=== PATIENT | female | born 1980 | race Caucasian/White ===

== ENCOUNTER 2020-11-17 08:40 | Outpatient (CLI) | payer OTHER, SELFPAY ==
[2020-11-17 08:55] LABS: Basophils Percent Auto 0.3 % (0.2-1.2); Eosinophils Absolute Auto 0.1 K/mm3 (0-0.3); Hematocrit 42.5 % (37.0-47.0); Immature Granulocyte Absolute 0.02 K/mm3 (0.00-0.031); Immature Granulocyte Percent A 0.3 % (0-0.5); Lymphocytes Absolute Auto 2.07 K/mm3 (0.9-3.2); Lymphocytes Percent Auto 33.7 % (18.3-44.2); Mean Corpuscular HGB Conc 32.9 g/dl (32-36); Mean Corpuscular Hemoglobin 31.7 pg (26-34); Mean Corpuscular Volume 96.2 fl (80-100); Mean Platelet Volume 10.6 fl (7.4-10.4); Monocytes Absolute Auto 0.4 K/mm3 (0.1-0.6); Monocytes Percent Auto 6.8 % (2.6-8.5); Neutrophils Absolute Auto 3.6 K/mm3 (1.3-6.7); Neutrophils Percent Auto 57.9 % (45.5-73.1); Platelet Count Result 220 k/mm3 (150-375); Red Blood Count 4.42 M/mm3 (4.2-5.4); Red Cell Distribution Width 11.9 % (11.5-14.5); White Blood Count 6.2 K/mm3 (4.5-10.0)
[2020-11-17 12:17] LABS: Iron 106 ug/dL (37-170)
[2020-11-17 12:21] LABS: Anion Gap 8 mmol/L (8-16); Blood Urea Nitrogen 10 mg/dL (7-17); Calcium 9.7 mg/dL (8.4-10.2); Carbon Dioxide 30 mmol/L (22-30); Chloride 101 mmol/L (98-107); Estimated Glomerular Filt Rate > 60; Glucose 91 mg/dL (65-105); Potassium 3.7 mmol/L (3.4-5.0); Sodium 139 mmol/L (137-145)
[2020-11-17 12:26] LABS: Percent Iron Saturation 39 % (20-50)
[2020-11-17 13:27] LABS: Folic Acid 6.7 ng/mL (2.76->20)
== END 2020-11-17 08:41 | disposition home or self-care (01) ==
LOC: ANHLAB 08:41
PROVIDERS: PCP Family Medicine; Visit Provider Internal Medicine Hematology & Oncology
DX: D50.8 Other iron deficiency anemias (principal)
CPT/HCPCS: 36415; 80048; 82607; 82728; 82746; 83540; 83550; 85025

== ENCOUNTER 2021-11-03 09:26 | Outpatient (CLI) | payer OTHER, SELFPAY ==
--- NOTE | ~2021-11-03 | CT_ITS ---
EXAMINATION: CT abdomen pelvis w con EXAM DATE: 11/03/2021 10:00 INDICATION: Right groin lymphadenopathy. Right lower quadrant pain for 3 months. TECHNIQUE: Spiral CT of the abdomen and pelvis was performed following intravenous injection of 100 m L Omnipaque 350. Axial, coronal and sagittal images of the abdomen and pelvis were reviewed. The do se-length product (DLP) for this examination was 294.41 mGy-cm. The exposure was tailored according to patient size (auto mA exposure control), and iterative reconstruction (ASIR) was used as additiona l dose reduction technique. There is no prior study for comparison. FINDINGS: The liver, spleen, adrenal glands and pancreas are unremarkable. Gallbladder is unremarkab le. No biliary obstruction. Portal and splenic veins are patent. Kidneys enhance symmetrically. T here is no hydronephrosis. The uterus is anteverted and morphologically normal. The bladder is un remarkable. There is no retroperitoneal or pelvic lymphadenopathy. There are no findings to suggest appendicitis. The stomach and small bowel are unremarkable. There is expected amount of colonic stool. No free intraperitoneal gas. The heart is normal in size. T here are no pericardial or pleural effusions. The lung bases are unremarkable. There are no osteobl astic or osteolytic lesions identified. IMPRESSION: Unremarkable abdomen pelvis CT. Reviewed, dictated and finalized at location B. LANDSCAPE ARCHITECT
== END 2021-11-03 09:27 | disposition home or self-care (01) ==
LOC: ANHIMG 09:30
PROVIDERS: PCP Family Medicine; Visit Provider Obstetrics & Gynecology
DX: R59.0 Localized enlarged lymph nodes (principal)
CPT/HCPCS: 74177; Q9967

== ENCOUNTER 2021-12-29 08:39 | Outpatient (CLI) | payer OTHER, SELFPAY ==
[2021-12-29 09:19] LABS: Hematocrit 46.1 % (37.0-47.0); Hemoglobin 15.2 g/dL (12.0-15.0)
[2021-12-29 09:30] LABS: Anion Gap 6 mmol/L (8-16); Blood Urea Nitrogen 13 mg/dL (7-17); Calcium 9.4 mg/dL (8.4-10.2); Carbon Dioxide 28 mmol/L (22-30); Chloride 105 mmol/L (98-107); Estimated Glomerular Filt Rate > 60; Glucose 92 mg/dL (65-110); Potassium 5.4 mmol/L (3.4-5.0); Sodium 139 mmol/L (137-145)
== END 2021-12-29 08:40 | disposition home or self-care (01) ==
LOC: ANHSURGERY 08:44
PROVIDERS: Anesthesiology; PCP Family Medicine; Visit Provider Surgery
DX: D50.8 Other iron deficiency anemias (principal); Z79.899 Other long term (current) drug therapy; Z01.818 Encounter for other preprocedural examination
CPT/HCPCS: 36415; 80048; 85014; 85018; 86850; 86900; 86901

== ENCOUNTER → 2022-01-02 00:15 | Outpatient (CLI) | payer OTHER, SELFPAY ==
[2022-01-02 11:15] LABS: SARS-CoV-2 RNA PCR Negative
== END ==
PROVIDERS: PCP Family Medicine; Visit Provider Surgery
DX: Z01.812 Encounter for preprocedural laboratory examination (principal); Z20.822 Contact with and (suspected) exposure to COVID-19
CPT/HCPCS: C9803; U0003; U0005

== ENCOUNTER 2022-01-05 00:22 | Day surgery (SDC) | payer OTHER, SELFPAY ==
[2021-12-28 15:28] VITALS: BMI 23.4
--- NOTE | 2021-12-28 15:57 | PC.NURSE ---
Report to the Outpatient Waiting Room, entrance under the green pavilion located off [facility], at time _11:00_ on date _01/05/22 (TUESDAY_). OR Time: _1:00PM_. IF YOUR SURGERY TIME IS CHANGED, WE WILL CALL YOU ON Tuesday01/04/22 - You and your visitor will be asked a series of questions to screen for COVID 19 for your protection. - A mask is required within the hospital. Preoperative COVID Testing Requirements: If not COVID vaccinated a COVID test must be conducted within 72 hours of surgery and patient is asked to isolate self from time of testing until procedure. You will go to the [facility] for your COVID testing. The [facility] is located at the corner of [address] [facility]. You will only be called if COVID results are positive and your surgeon may reschedule your elective surgery date. Patients may have clear liquids (water, carbonated beverages, clear teas, apple juice) until 3 hours prior to surgery with a maximum of 20 ounces. STOP CLEAR LIQUIDS AT 10:00 AM ON THE MORNING OF SURGERY - No food from midnight until time of surgery - Infants may have breast milk until 4 hours before surgery, infant formula 6 hours prior to surgery. - Children will be allowed to drink immediately following surgery. If applicable, please bring a bottle or sippy cup to assist with drinking. Juice, water, soda, and popsicles are readily available. For infants on formula, please bring formula the day of surgery. Pacifiers are allowed. Take the following medications with a SIP of water the morning of surgery: __BIRTH CONTROL PILL Medications to discontinue per physician N/A Date to take last dose____N/A Please no make-up, nail comoran, hairspray, perfume, deodorant, or body powder the day of surgery. No jewelry (including any body piercings) or valuables the day of surgery, leave them at home. Please take a shower or bath the night before, or the morning of, surgery with an antibacterial soap. HIBICLENS WASH (CHLORHEXIDINE GLUCONATE). Wear comfortable, loose fitting clothing. - Jewelry must be removed prior to entering the operating room. Rings and piercings that are not removed may be cut off. WE WILL HELP YOU REMOVE JEWELRY IF POSSIBLE; IF NEEDED WE WILL PROVIDE A JEWELRY WAIVER DISCUSSED. - The hospital will not accept responsibility for valuables. - Please leave all valuables, including medications, at home the day of surgery. If you are going home after surgery, a licensed combine driver must drive you home. - NO public transportation without another adult. - We recommend that an adult stay with you for 24 hours following discharge. - We also recommend that you do not drive, make important decision, drink alcoholic beverages, or take any drugs that were not prescribed by your health care provider for at least 24 hours after your discharge time. For Pediatric surgeries, we recommend two adults accompany the child home (only one inside the building at this time). One visitor will be allowed to accompany the patient into the hospital. Patients visitor will be instructed to remain with patient at all times or leave the building. We will allow the visitor to come back to the postoperative area when patient is ready. Follow any additional instructions given to you from your surgeon. Telephone instructions given to SOUMYA and asked if any additional questions and then verbalized understanding. Patient advised to call surgeon office or pre surgery nurse liaison [phone] if any additional questions.
[2022-01-05] VITALS (13 sets, daily range): BP systolic 93–112; BP diastolic 39–90; PULSE 54–97; RESP 12–16; TEMP 36.5; O2SAT 95–100
[2022-01-05] MEDS: ACETAMINOPHEN 500 MG TABLET 1000 MG PO (08:56)
[2022-01-05] MEDS: LACTATED RINGERS 1,000 ML 30 ML IV CONT ×3 (08:58→15:03)
--- NOTE | 2022-01-05 09:55 | WPDANESEPPF ---
Anes - Initial Pre Proc Eval Procedure: Operation Date: 01/05/22 10:30 Proposed Procedures p Laparoscopic Right Inguinal Hernia Repair with Mesh Davinci Assisted, Possible Inguinal Lymph Node Biopsy - Ron Nina DO Date/Time: 01/05/22 09:55 Surgeon: Ron Nina DO Pre Op Diagnosis: right inguinal hernia Patient Data Age: 41 Gender: F Height: 1.52 m Weight: 54.5 kg Allergies Allergy/AdvReac Type Severity Reaction Status Date / Time aspirin Allergy Intermediate SWELLING Verified 01/05/22 10:11 codeine Allergy Intermediate SWELLING Verified 01/05/22 10:11 ferrous gluconate Allergy Intermediate Swelling Verified 01/05/22 10:11 latex Allergy Intermediate Rash; Verified 01/05/22 10:11 swelling Home Medications Medication Instructions Recorded Confirmed Type acetaminophen 325 mg tablet 325 mg PO Q6H PRN 11/09/21 01/05/22 History vitamin [id number] B1 1,000 1 ml IM DIRECTED 11/09/21 01/05/22 History mcg-100 mg/mL injection solution levonorgest-eth.estradiol-iron 1 tablet PO DAILY 12/28/21 01/05/22 History [Balcoltra] spironolactone 50 mg PO DAILY 12/28/21 01/05/22 History Patient hx anesthesia problems: none Family hx anesthesia problems: none Results Review: All pre-operative results and documents have been reviewed as part of the pre-operative evaluation. FORMERLY [facility], [facility] Past Medical History Medical History High cholesterol Surgical History Surgical History Hx of tonsillectomy Family History Family History Father Heart attack Status post double vessel coronary artery bypass Cerebrovascular accident Mother High cholesterol Hypothyroidism Social History Social History Smoking status: Never smoker Alcohol intake: never Substance use: never Substance use type: does not use Living arrangements: with family Additional living arrangements comments: [facility] [phone] Additional occupation/education comments: [employer] Gender identity (if verbalized by the patient): Female Spiritual care concerns: No Anes - Eval Final PreProcedure Day of Procedure 01/05/22 09:55 Patient weight: normal Heart: regular rate and rhythm Lungs: clear to auscultation Airway: Mallampati scale class II Neurological: alert and oriented Last oral intake: >/= 8 hours ASA classification: II Emergent: no Anesthetic plan: proceed Anesthesia type and monitoring: general ETT and standard monitoring Results Review: All pre-operative results and documents have been reviewed as part of the pre-operative evaluation. Informed Consent: The patient's anesthetic plan and its attendant risks and benefits were discussed with the patient/family/POA. Questions were solicited and answers provided to the satisfaction of the patient/family/POA.
--- NOTE | 2022-01-05 10:26 | WPDHPUPDATE1 ---
History and Physical Update Update Date/Time: 01/05/22 10:26 History and Physical has been reviewed, including an updated exam of the patient. There are NO changes in the patient's condition. Risks, benefits, and alternatives have been discussed and questions answered. Patient agrees to proceed with procedure.
--- NOTE | 2022-01-05 10:26 | PM.IMHP ---
H&P: HPI History of Present Illness Date/Time: 01/05/22 10:26 Chief Complaint: Right inguinal hernia Narrative: 41 yo woman presents for right inguinal hernia repair. She denies any changes since last seen in office. Review of Systems Review of Systems: All systems reviewed & are unremarkable except as noted in HPI and below Constitutional: Constitutional: Denies chills, Denies fever(s), Denies headache(s) and Denies weight loss Eyes: Eyes: Denies change in vision ENT: Denies dizziness, Denies headache(s), Denies neck mass and Denies throat swelling Cardiovascular: Cardiovascular: Denies chest pain, Denies lightheadedness and Denies dyspnea Respiratory: Respiratory: Denies cough, Denies dyspnea and Denies wheezing Gastrointestinal: Gastrointestinal: Denies abdominal pain, Denies change in bowel habits, Denies nausea and Denies vomiting Genitourinary: Genitourinary: Denies hematuria and Denies dysuria Musculoskeletal: Musculoskeletal: Reports as per HPI Integumentary/Breasts: Skin/Breast: Reports as per HPI Neurologic: Denies dizziness and Denies headache(s) Allergic/Immunologic: Allergic/Immunologic: Denies throat swelling and Denies wheezing PMF Past Medical History Medical History High cholesterol Surgical History Surgical History Hx of tonsillectomy Family History Family History Father Heart attack Status post double vessel coronary artery bypass Cerebrovascular accident Mother High cholesterol Hypothyroidism Social History Social History Smoking status: Never smoker Alcohol intake: never Substance use: never Substance use type: does not use Living arrangements: with family Additional living arrangements comments: [facility] [phone] Additional occupation/education comments: [employer] Gender identity (if verbalized by the patient): Female Spiritual care concerns: No Meds Home Medications and Allergies Home Medications Medication Instructions Recorded Confirmed Type acetaminophen 325 mg tablet 325 mg PO Q6H PRN 11/09/21 01/05/22 History vitamin [id number] B1 1,000 1 ml IM DIRECTED 11/09/21 01/05/22 History mcg-100 mg/mL injection solution levonorgest-eth.estradiol-iron 1 tablet PO DAILY 12/28/21 01/05/22 History [Balcoltra] spironolactone 50 mg PO DAILY 12/28/21 01/05/22 History Allergies Allergy/AdvReac Type Severity Reaction Status Date / Time aspirin Allergy Intermediate SWELLING Verified 01/05/22 10:11 codeine Allergy Intermediate SWELLING Verified 01/05/22 10:11 ferrous gluconate Allergy Intermediate Swelling Verified 01/05/22 10:11 latex Allergy Intermediate Rash; Verified 01/05/22 10:11 swelling Vital Signs Vital Signs - 24 hr 01/05/22 09:00 Temperature 36.5 C Pulse Rate 75 Respiratory Rate 16 Blood Pressure 111/49 L Pulse Oximetry 100 Exam Const: General: no acute distress and alert Orientation/consciousness: patient oriented x3 HENMT: Head: normocephalic and atraumatic Ears: hearing grossly normal bilaterally General nose exam: Normal nares present Mouth: Yes Normal oral and palatal mucosa present Eyes: Periorbital: periorbital findings normal Sclera: sclerae normal EOM: EOMs intact bilaterally Neck: Neck: normal visual inspection, no lymphadenopathy and trachea midline Chest: Chest palpation & inspection: normal inspection of the chest Resp: Effort & Inspection: normal respiratory effort Auscultation: clear to auscultation bilaterally Cardio: Jugular venous distension: no JVD Rate: regular rate Rhythm: regular rhythm Heart sounds: S1 normal heart sound present and S2 normal heart sound present Peripheral pulses: Peripheral pulses 2+ throughout GI: Inspection: david
[2022-01-05] MEDS: SCOPOLAMINE 1.5 MG PATCH TRANSDERM (11:00)
[2022-01-05] MEDS: ceFAZolin 2 GM/D5W 50 ML 2 GM/50 ML BAG IVPB (11:01)
--- NOTE | 2022-01-05 12:20 | W.PM.PROC2 ---
Procedure Note - Detailed Date of Procedure 01/05/22 Pre-op Diagnosis right inguinal hernia Post-op Diagnosis Same (Indirect right inguinal hernia, right inguinal lipoma) Procedure Performed Laparoscopic right inguinal hernia repair with mesh, da Jeffery assisted Surgeon Ron Nina, DO Anesthesia General and Local (0.5% bupivacaine with epinephrine) Indications This is a 41-year-old woman who has been experiencing right groin pain for the past several months. She noticed a small bulge in the right groin that was more prominent after being up all day on her feet. She also had increasing pain with activity. Imaging was negative, but on exam with patient standing and with Valsalva maneuver I was able to identify a right inguinal hernia. Discussions were made with the patient about treatment options and decision was made to proceed with laparoscopic right inguinal hernia repair mesh, de Jeffery assisted. Findings Robotic assisted laparoscopic right inguinal hernia repair was performed. Patient is found to have a small indirect right inguinal hernia. As the preperitoneal plane was developed and the hernia sac was reduced, I also noted a small lipoma going up into the inguinal canal. There was no evidence of lymphadenopathy. A robotic transabdominal preperitoneal approach was utilized for repair. A large right 3DMax mid mesh was placed overlying the entire right myopectineal orifice. The right inguinal lipoma was excised and sent to the lab for pathology. Description of Procedure Procedure as well as risks, benefits, and alternatives were discussed with the patient. Written consent was obtained and placed in chart prior to procedure. Patient was brought back to surgical suite. She was placed supine on operating table. Time-out was done to confirm patient and procedure. She was then intubated by Anesthesia Department. Her abdomen was prepped and draped in sterile fashion using chlorhexidine prep. 0.5% bupivacaine with epinephrine was infiltrated at each location for incision. A 12 millimeter transverse incision was made just superior to the umbilicus using a 15 blade scalpel. Blunt dissection was carried out down to the linea alba. A vertical incision was made at the linea alba using a 15 blade scalpel. The peritoneum was then bluntly entered. A 12 millimeter trocar was inserted and carbon dioxide insufflation was used to create a pneumoperitoneum. A camera was inserted and the abdominal cavity was inspected. The patient was placed in slight Trendelenburg position. An 8 millimeter incision was made on the right lateral abdomen and an 8 millimeter trocar was inserted under direct visualization. Another 8 millimeter incision was made in the left lateral abdomen and an 8 millimeter trocar was inserted under direct visualization. The robotic arms were brought up to the patient's bedside and secured to the ports. The camera and instruments were inserted. I then moved over to the robotic console and took control of the camera and instruments. After careful inspection of the abdominal cavity, I began scoring the peritoneum along the right lower quadrant using scissors with electrocautery. The preperitoneal plane was entered and this was carefully dissected caudally along the inferior epigastric vessels. Careful dissection with scissors with electrocautery and blunt dissection was used to continue this dissection. I dissected far enough laterally to allow for mesh placement, and also dissected medially to identify the pubic arch and Guy's ligament. The hernia sac was identified and carefully dissected posteriorly. The hernia sac was dissected off round ligament and the round ligament was transected with electrocautery. The right inguinal lipoma was carefully reduced from within the inguinal canal and this was excised with scissors with electrocautery and it was sent to the lab for pathology. Once an adequate pocket was created, I then placed the mesh
[2022-01-05] MEDS: fentaNYL CITRATE INJ (*CRX) 100 MCG/2 ML VIAL 25 MCG IV PUSH ×4 (12:52→13:11)
[2022-01-05] MEDS: ONDANSETRON INJ 4 MG/2 ML VIAL IV PUSH (13:40)
[2022-01-05] MEDS: diphenhydrAMINE HCl INJ 50 MG/ML VIAL 12.5 MG IV PUSH ×2 (13:58→14:58)
[2022-01-05] MEDS: traMADol HCL (*CRX) 50 MG TABLET PO (15:31)
--- NOTE | 2022-01-05 16:33 | SUR.PHASEII ---
NO FACIAL SWELLING; DENIES ITCHINESS/RASH. NO DIFFICULTY BREATHING.
== END 2022-01-05 16:33 | disposition home or self-care (01) ==
PROVIDERS: PCP Family Medicine; Visit Provider Surgery
PROC: 8E0Y4CZ Robotic Assisted Procedure of Lower Extremity, Percutaneous Endoscopic Approach (ICD-10-PCS; CPT 49650; principal; 2022-01-05 10:30)
DX: K40.90 Unilateral inguinal hernia, without obstruction or gangrene, not specified as recurrent (principal); D17.23 Benign lipomatous neoplasm of skin and subcutaneous tissue of right leg
CPT/HCPCS: 49650; S2900; 88304; A9270; C1781; J0690; J1100; J1200; J2250; J2405; J2704; J2710; J3010; J7120

== ENCOUNTER 2022-05-20 08:56 | Outpatient (CLI) | payer OTHER, SELFPAY ==
--- NOTE | ~2022-05-20 | CT_ITS ---
EXAMINATION: CT pelvis wo con DATE: 05/20/2022 09:17 INDICATION: Right groin pain TECHNIQUE: Computed tomography (CT) of the pelvis was performed without intravenous contrast. The dos e-length product (DLP) was 228.31 mGy-cm. Automated exposure control and iterative reconstruction nelsy hnique were employed. COMPARISON: 11/03/2021 FINDINGS: There are no pathologically enlarged pelvic lymph nodes. A small volume of pelvic ascites i s likely physiologic. There is no free intraperitoneal gas or evidence of bowel obstruction. There is no evident hernia. IMPRESSION: 1. No CT correlate for the patient's symptoms. Reviewed, dictated and finalized at location B.
== END 2022-05-20 08:57 | disposition home or self-care (01) ==
PROVIDERS: PCP Family Medicine; Visit Provider Surgery
DX: R10.31 Right lower quadrant pain (principal)
CPT/HCPCS: 72192

== ENCOUNTER 2023-08-24 09:05 | Outpatient (CLI) | payer OTHER, SELFPAY ==
[2023-08-24 09:29] LABS: Basophils Percent Auto 0.4 % (0.2-1.2); Eosinophils Absolute Auto 0.1 K/mm3 (0-0.3); Eosinophils Percent Auto 1.7 % (0-4.4); Hemoglobin 14.3 g/dL (12.0-15.0); Immature Granulocyte Absolute 0.01 K/mm3 (0.00-0.031); Immature Granulocyte Percent A 0.2 % (0-0.5); Lymphocytes Absolute Auto 2.22 K/mm3 (0.9-3.2); Lymphocytes Percent Auto 46.1 % (18.3-44.2); Mean Corpuscular HGB Conc 33.3 g/dl (32-36); Mean Corpuscular Hemoglobin 31.9 pg (26-34); Mean Platelet Volume 10.4 fl (7.4-10.4); Monocytes Absolute Auto 0.4 K/mm3 (0.1-0.6); Monocytes Percent Auto 8.1 % (2.6-8.5); Neutrophils Absolute Auto 2.1 K/mm3 (1.3-6.7); Neutrophils Percent Auto 43.5 % (45.5-73.1); Platelet Count Result 239 k/mm3 (150-375); Red Blood Count 4.48 M/mm3 (4.2-5.4); Red Cell Distribution Width 12.4 % (11.5-14.5); White Blood Count 4.8 K/mm3 (4.5-10.0)
[2023-08-24 14:07] LABS: Iron 63 ug/dL (37-170)
[2023-08-24 14:16] LABS: Percent Iron Saturation 21 % (20-50)
== END 2023-08-24 09:06 | disposition home or self-care (01) ==
LOC: ANHLAB 09:16
PROVIDERS: Visit Provider Internal Medicine Hematology & Oncology
DX: E53.8 Deficiency of other specified B group vitamins (principal); D50.0 Iron deficiency anemia secondary to blood loss (chronic)
CPT/HCPCS: 36415; 82607; 82728; 82746; 83540; 83550; 85025

== ENCOUNTER 2023-12-30 09:15 | Outpatient (CLI) | payer OTHER, SELFPAY ==
[2023-12-30 09:32] LABS: Basophils Percent Auto 0.6 % (0.2-1.2); Eosinophils Absolute Auto 0.1 K/mm3 (0-0.3); Eosinophils Percent Auto 1.6 % (0-4.4); Hematocrit 42.4 % (37.0-47.0); Immature Granulocyte Absolute 0.01 K/mm3 (0.00-0.031); Immature Granulocyte Percent A 0.2 % (0-0.5); Lymphocytes Absolute Auto 2.66 K/mm3 (0.9-3.2); Lymphocytes Percent Auto 51.8 % (18.3-44.2); Mean Corpuscular Hemoglobin 31.8 pg (26-34); Mean Corpuscular Volume 96.4 fl (80-100); Mean Platelet Volume 10.6 fl (7.4-10.4); Monocytes Absolute Auto 0.4 K/mm3 (0.1-0.6); Monocytes Percent Auto 7.8 % (2.6-8.5); Platelet Count Result 251 k/mm3 (150-375); Red Cell Distribution Width 12.2 % (11.5-14.5); White Blood Count 5.1 K/mm3 (4.5-10.0)
[2023-12-30 12:27] LABS: Atypical Lymphocytes Present; Platelet Estimate Adequate (Adequate); Schistocytes None Seen
[2023-12-30 14:21] LABS: Iron 43 ug/dL (37-170)
[2023-12-30 14:33] LABS: Percent Iron Saturation 13 % (20-50)
[2023-12-30 15:29] LABS: Folic Acid 7.8 ng/mL (2.76->20)
== END 2023-12-30 09:16 | disposition home or self-care (01) ==
LOC: ANHLAB 09:17
PROVIDERS: Nurse Practitioner Family; Visit Provider Internal Medicine Hematology & Oncology
DX: D50.8 Other iron deficiency anemias (principal)
CPT/HCPCS: 36415; 82607; 82728; 82746; 83540; 83550; 85025

== ENCOUNTER 2024-08-02 09:20 | Outpatient (CLI) | payer OTHER, SELFPAY ==
[2024-08-02 09:40] LABS: Hematocrit 45.3 % (37.0-47.0); Hemoglobin 15.2 g/dL (12.0-15.0); Mean Corpuscular HGB Conc 33.6 g/dl (32-36); Mean Corpuscular Hemoglobin 32.9 pg (26-34); Mean Corpuscular Volume 98.1 fl (80-100); Mean Platelet Volume 10.5 fl (7.4-10.4); Platelet Count Result 237 k/mm3 (150-375); Red Blood Count 4.62 M/mm3 (4.2-5.4); White Blood Count 5.9 K/mm3 (4.5-10.0)
[2024-08-02 10:09] LABS: Iron 72 ug/dL (37-170)
[2024-08-02 10:26] LABS: Percent Iron Saturation 26 % (20-50)
[2024-08-02 11:45] LABS: Vitamin B12 > 1000.0 pg/mL (239-931)
== END 2024-08-02 09:21 | disposition home or self-care (01) ==
LOC: ANHLAB 09:21
PROVIDERS: PCP Family Medicine; Visit Provider Internal Medicine Hematology & Oncology
DX: D50.0 Iron deficiency anemia secondary to blood loss (chronic) (principal); E53.8 Deficiency of other specified B group vitamins
CPT/HCPCS: 36415; 82607; 82728; 82746; 83540; 83550; 85027

== ENCOUNTER 2024-12-04 09:36 | Outpatient (CLI) | payer BC, SELFPAY ==
[2024-12-04 10:09] LABS: Hematocrit 44.1 % (37.0-47.0); Mean Corpuscular Hemoglobin 32.6 pg (26-34); Mean Corpuscular Volume 95.9 fl (80-100); Mean Platelet Volume 11.1 fl (7.4-10.4); Platelet Count Result 204 k/mm3 (150-375); Red Cell Distribution Width 11.8 % (11.5-14.5); White Blood Count 5.2 K/mm3 (4.5-10.0)
--- OUTSIDE RECORDS SUMMARY | 2024-12-04 10:45 | XMS_ITS | Clinical Summary ---
Author Organization [facility] Address [address] [place] [id number] Care Team Providers Care Quality Assurance Coordinator Name Role Phone Luna Henson NP Primary Care Provider [phone] Social History Tobacco Use Types Packs/Day Years Used Date Smoking Tobacco: Never Assessed Comments Unknown Sex and Gender Information Value Date Recorded Sex Assigned at Not on file Legal Sex Female 8:36 AM CDT Gender Identity Not on file Sexual Orientation Not on file Plan of Treatment Upcoming Encounters Date Type Department Care Team (Late st Contact Info) Description 12/12/2024 1:20 PM CDT Office Visit [facility] [place] [address] [place] [address] Luna Henson, INSURANCE AGENTS SUPERVISOR [address] [place] [address] Health Maintenance Due Date Last Done Comments Cervical Cancer Screening Pa p Smear (Age 30 to 64) Every 3 Years 1981 Annual Physical 1984 Hepatitis C 1999 DTaP, Tdap and Td Vaccines ( 1 - Tdap) 2000 Hepatitis B Vaccines (1 of 3 - 19+ 3-dose series) 2000 Cervical Cancer Screening Pa p with HPV Testing (Age 30 to 64) Every 5 Years 2011 Cervical Cancer Screening with HPV 2011 Mammogram Screening 2021 COVID-19 Vaccine ( - 2023-2 5 season) 2024 Influenza Adult (#1) 2024 HPV Vaccines Aged Out No longer eligi ble based on patient's age to complete this topic Meningococcal B Vaccine Aged Out No l onger eligible based on patient's age to complete this topic Meningococcal Vaccine Aged Out No romana dewey eligible based on patient's age to complete this topic Pneumococcal Vaccine: Pediat rics (0 to 5 Years) and At-Risk Patients (6 to 64 Years) Aged Out No longer eligible b ased on patient's age to complete this topic RSV Immunizations Under 20 Months Aged Out No longer eligible based on patient's age to complete this topic Insurance [facility] Care Teams Quality Assurance Coordinator Relationship Specialty Start Date End Date Luna Henson NP [address] [facility] [address] [place] [address] PCP - General NURSE PRACTITIONER 12/03/24
--- OUTSIDE RECORDS SUMMARY | 2024-12-04 10:46 | XMS_ITS | Clinical Summary ---
Author Organization [facility] Address [address] [address] Care Team Providers Care Obstetrics Gynecology Md Name Role Phone Rc Grier MD Primary Care Provider [phone] Allergies Active Allergy Reactions Criticality Noted Date Comments Aspirin Swelling Low 02/20/2019 Codeine Itching,Swelling Low 02/20/2019 Latex Hives High 08/20/2019 Medications levonorgest/et h.estradiol/ir on (BALCOLTRA ORAL) Take by mouth. Activ e vitamin-iron fumarate-folic acid 27 mg-0.8 mg Tablet Take 1 Tablet by mouth daily. Active Syringe with Needle, Disp, (BD Luer-Yesica Syringe) 3 mL 22 gauge x 1 SyringeIndicat ions:Iron deficiency anemia due to chronic blood loss Use as directed 8 Each 5 3 Active cyanocobalamin (VITAMIN B-12) 1,000 mcg/mL SolutionIndica tions:Iron deficiency anemia due to chronic blood loss INJECT 1 ML (1,000 MCG) BY INTRAMUSCULAR INJECTION EVERY 2 WEEKS Strength: 1,000 mcg/mL 4 mL 5 4 Active Insulin Syringe-Needle U-100 1 mL 27 gauge x 1/2 SyringeIndicat ions:Vitamin B12 deficiency (non anemic) Use with B12 to administer B12 dosage. 2 Each 6 4 Active Active Problems Problem Noted Date Diagnosed Date Vitamin B12 deficiency (non anemic) 05/20/2021 Iron deficiency anemia 08/20/2019 Epistaxis 08/20/2019 Encounters Date Type Department Care Team Description 12/01/2024 External Device Data [facility] ABSTRACTION Provider, Abstract 12/01/2024 External Device Data [facility] ABSTRACTION Provider, Abstract 11/28/2024 External Device Data [facility] ABSTRACTION Provider, Abstract 11/14/2024 External Device Data [facility] ABSTRACTION Provider, Abstract 11/06/2024 External Device Data [facility] ABSTRACTION Provider, Abstract 10/18/2024 External Device Data [facility] ABSTRACTION Provider, Abstract from Last 3 Months Family History Medical History Relation Name Comments Healthy Brother 1 Healthy Brother 2 Healthy Brother 3 Healthy Father Healthy Mother Relation Name Status Comments Brother 1 Alive Brother 2 Alive Brother 3 Alive Father Alive Mother Alive Social History Tobacco Use Types Packs/Day Years Used Date Smoking Tobacco: Never Smokeless Tobacco: Never Tobacco Cessation:Counseling Given: Not Answered Alcohol Use Standard Drinks/Week Comments Never 0 (1 standard drink = 0.6 oz pur e alcohol) Comments No Sex and Gender Information Value Date Recorded Sex Assigned at Not on file Legal Sex Female 11:50 AM CDT Gender Identity Not on file Sexual Orientation Not on file Last Filed Vital Signs Vital Sign Reading Time Taken Comments Blood Pressure 116/62 08/09/2024 10:05 AM CROWNING INSPECTOR Pulse 94 08/09/2024 10:05 AM CROWNING INSPECTOR Temperature 36.6 C (97.8 F) 08/09/2024 10:05 AM CROWNING INSPECTOR Respiratory Rate 16 08/09/2024 10:05 AM CROWNING INSPECTOR Oxygen Saturation 98% 08/09/2024 10:05 AM CROWNING INSPECTOR Inhaled Oxygen Concentration - - Weight 52.6 kg (116 lb) 08/09/2024 10:05 AM CROWNING INSPECTOR Height 154.9 cm (5' 1 ) 12/02/2021 10:01 AM CROWNING INSPECTOR Body Mass Index 21.92 12/02/2021 10:01 AM CROWNING INSPECTOR Plan of Treatment Upcoming Encounters Date Type Department Care Team (Late st Contact Info) Description 12/07/2024 10:00 AM CDT Office Visit [facility] Oncology and Hematology - [place] [address] [address] [place] [address] Bhanu Magdaleno MD [address] [place] [address] Health Maintenance Due Date Last Done Comments DTAP/TDAP/TD VACCINES (1 - Tdap) 2000 HEPATITIS B VACCINES (1 of 3 - 19+ 3-dose series) 2000 CERVICAL CANCER SCREENING 2011 BREAST CANCER SCREENING 2021 INFLUENZA VACCINE (#1) 2024 Preventative Visit-Managed Medicaid 07/19/2025 07/18/2024, 07/13/2023, 08/09/2012 HPV VACCINES Aged Out No longer eligi ble based on patient's age to complete this topic Insurance Care Teams Obstetrics Gynecology Md Relationship Specialty Start Date End Date Rc Grier MD PCP - General Family Practice 02/16/23
--- OUTSIDE RECORDS SUMMARY | 2024-12-04 10:46 | XMS_ITS | Data Portability ---
Author Organization [place] [facility], Main Office Address [address] [place] [address] Assessment No assessment recorded. Plan of Treatment Reminders Order Date Submit Date Provider Last Modified By Organization Details Last Modified Time Details Appointments Nurse Visit 15 2024 09:15A M Yair Cook MD Not available Not available Not available Lab None recorded. Referral None recorded. Procedures None recorded. Surgeries None recorded. Imaging None recorded. Medication Orders Nurtec ODT 75 mg disintegr ating tablet 2024 025 [facility][id number], [address], [place], [id number], 11/26/2024 10:52:09 amoxicill in 875 mg-potass ium clavulana te 125 mg tablet 2024 025 [facility] #[id number], [address], [place], [id number], 11/26/2024 10:53:45 fluconazo le 150 mg tablet 2024 025 [facility] #[id number], [address], [place], [id number], 11/26/2024 10:54:37 cyanocoba mariano (vit B-12) 1,000 mcg/mL injection solution 2024 025 [email or web address] Not available 11/29/2024 12:56:55 cyanocoba mariano (vit B-12) 1,000 mcg/mL injection solution 2024 025 [email or web address] Not available 11/01/2024 12:54:43 cyanocoba mariano (vit B-12) 1,000 mcg/mL injection solution 2024 025 [email or web address] 00 Not available 09/27/2024 16:26:16 cyanocoba mariano (vit B-12) 1,000 mcg/mL injection solution 2023 024 [email or web address] 00 Not available 09/12/2024 11:48:25 Patient TargetsNo targets recorded. Patient InstructionsNo instructions recorded. Reason for Referral None Reported. Problems Name Problem SNOMED Code Status Onset Date Resolution Date Notes Provider Name and Address Organization Details Recorded Time Cobalamin deficiency 121825742 Active 2021 Not Available [facility] 3 04:20:42 Wrist joint pain 121124759 Active Not Available [facility] 3 04:20:42 Radial styloid tenosynovitis 35537092 Active Not Available [facility] 3 04:20:42 Vitamin B12 deficiency (non anemic) 79661593 Active 2021 Not Available [facility] 3 04:20:42 Acute sinusitis 34225673 Active 2022 Not Available [facility] 3 04:20:42 Hyperlipidemi a 06009085 Active 2022 Not Available [facility] 3 04:20:42 Seasonal allergic rhinitis 071919644 Active 2022 Not Available [facility] 3 04:20:42 Vitamin D deficiency 27732159 Active 2022 Not Available [facility] 3 04:20:42 Dyspnea 331225894 Active 2023 JULIETTE Stephen [address], [address], [place], [address] , [employer] [facility] [employer] [facility] 4 11:58:46 Pharyngitis 473794803 Active 2023 JULIETTE Stephen [address], [place], [address] , [facility] [employer] [facility] 4 12:38:20 Chronic idiopathic constipation 30752683 Active 2023 JULIETTE Stephen [address], [address], [place], [address] , [facility] 4 10:11:42 Constipation 01313906 Active 2023 Keysha Penn RN null, [facility] 4 10:14:22 Contraception care Active 2023 JULIETTE Stephen [address], [address], [place], [address] , [facility] 4 10:10:59 Irritable bowel syndrome characterized by constipation 445591134 Active 2023 JULIETTE Stephen [address], [address], [place], [address] , [place] [facility] 4 21:05:52 Stomach ache 203395293 Active 2023 JULIETTE Stephen [address], [address], [place], [address] , [place] [facility] 4 10:37:25 Screening mammography Active 2023 JULIETTE Stephen [address], [address], [place], [address] , [place] [facility] 4 10:38:47 Adult health examination Active 2023 JULIETTE Stephen [address], [address], [place], [address] , [facility] 4 10:50:50 Nausea 297113341 Active 2023 JULIETTE Stephen [address], [address], [place], [address] , [place] [facility] 4 15:07:54 Wheezing 61593962 Active 2023 JULIETTE Stephen [address], [address], [place], [address] , [place] [facility] 4 15:09:01 Migraine 60298033 Active 2024 JULIETTE Stephen [address], [place], [address] , [facility] [employer] [facility] 5 09:59:29 Serum vitamin B12 below reference range 907956726 Active 2024 JULIETTE Stephen [address], [place], [address] , [facility] [employer] [facility] 5 10:31:18 Acute left otitis media 288371494 Active 2024 JULIETTE Stephen [address], [address], [place], [address] , [facility] [place] [employer] [facility] 5 10:52:48 Problem Notes None recorded. Medical Equipment None Reported. Allergies Allergen ID Allergen Name Allergen Category Reaction Reaction Severity Criticality Documentation Date Start Date Code Code System Note Provider Name and Address Organization Details Recorded Time 65221 codeine medicatio n Not available Not available Not available 11/24/2022 2670 RxNorm Not Available [facility] 3 19:28:33 09160 aspirin medicatio n Not available Not available Not available 11/24/2022 1191 RxNorm Not Available [facility] 3 19:28:33 54150 latex environme nt,medica tion Not available Not available Not available 11/17/2023 62157 91 RxNorm JULIETTE Stephen [address], [address], [place], [address], [facility] [place] [employer] [facility] 4 12:37:58 Medications Name Sig Start Date Stop Date Status Note LastModified by Organization Details LastModified Time amoxicilli n 500 mg capsule TAKE 1 CAPSULE BY MOUTH THREE TIMES A DAY FOR 7 DAYS 03/03 completed Not Available Not Available Not Available medroxypro gesterone 10 mg tablet TAKE 1 TABLET BY MOUTH ONCE A DAY FOR 7 DAYS 05/19 completed Not Available Not Available Not Available atorvastat in 40 mg tablet TAKE 1 TABLET BY MOUTH DAILY 2024 active Not Available Not Available Not Avai lable atorvastat in 20 mg tablet TAKE 1 TABLET BY MOUTH EVERY DAY 11/17 completed Not Available Not Available Not Available Depo-Medro l 40 mg/mL suspension for injection Take 1 mL every day by injection route. 05/13 completed Not Available Not Available Not Available clindamyci n HCl 300 mg capsule TAKE 1 CAPSULE BY MOUTH THREE TIMES A DAY UNTIL GONE OVERLAP WITH AMOXICILL IN FOR 2 DAYS 03/03 completed Not Available Not Available Not Available cetirizine 10 mg tablet TAKE 1 TABLET BY MOUTH EVERY DAY active Not Available Not Available No t Available azithromyc in 250 mg tablet TAKE 2 TABLETS BY MOUTH TODAY, THEN TAKE 1 TABLET DAILY FOR 4 DAYS DIRECTED active Not Available Not Available No t Available fluconazol e 150 mg tablet prn only if yeast infection occurs from antibioti cs .take 1 pill for 1 day. may repeat every 3 days as needed. 2024 active Not Available Not Available Not Avai lable hydrocodon e 5 mg-acetami nophen 325 mg tablet TAKE 1 TABLET BY MOUTH EVERY 4 HOURS NEEDED FOR PAIN 05/19 completed Not Available Not Available Not Available ondansetro n HCl 4 mg tablet TAKE 1 TABLET BY MOUTH EVERY 4 HOURS NEEDED FOR NAUSEA active Not Available Not Available No t Available rizatripta n 10 mg tablet TAKE 1 TABLET BY MOUTH AT ONSET OF MIGRAINE active Not Available Not Available No t Available clindamyci n HCl 150 mg capsule TAKE 1 CAPSULE BY MOUTH EVERY 6 HOURS FOR 7 DAYS 03/03 completed Not Available Not Available Not Available phentermin e 37.5 mg tablet TAKE 1 TABLET BY MOUTH EVERY DAY active Not Available Not Available No t Available ciprofloxa carmenza 500 mg tablet TAKE 1 TABLET BY MOUTH EVERY 12 HOURS FOR 10 DAYS 11/17 completed Not Available Not Available Not Available tramadol 50 mg tablet TAKE 1 TABLET BY MOUTH EVERY 6 HOURS NEEDED active Not Available Not Available No t Available triamcinol one acetonide 0.1 % topical cream APPLY A THIN LAYER TWICE DAILY FOR 2 WEEKS ON THEN 2 WEEKS OFF AND CONTINUE TO BACK, NECK, ARMS active Not Available Not Available No t Available phentermin e 30 mg capsule TAKE 1 CAPSULE BY MOUTH EVERY DAY active Not Available Not Available No t Available amoxicilli n 500 mg tablet TAKE 1 TABLET BY MOUTH EVERY 6 HOURS UNTIL GONE 04/01 completed Not Available Not Available Not Available fluvastati n 40 mg capsule TAKE 1 CAPSULE BY MOUTH EVERY DAY 2023 active Not Available Not Available Not Avai lable amoxicilli n 875 mg tablet 03/03 completed Not Available Not Available Not Available cephalexin 500 mg capsule TAKE 1 CAPSULE BY MOUTH THREE TIMES A DAY 02/28 completed Not Available Not Available Not Available cyanocobal beatty (vit B-12) 1,000 mcg/mL injection solution Inject 1 mL every month by subcutane ous route for 1 day. 2024 active pt cesilia well Not Available Not Available Not Available fluvastati n 20 mg capsule active Not Available Not Available Not Available mupirocin 2 % topical ointment APPLY A SMALL AMOUNT TO THE AFFECTED AREA BY TOPICAL ROUTE 3 TIMES PER DAY active Not Available Not Available No t Available methylpred nisolone 4 mg tablets in a dose pack Use as directed. 08/27 completed Not Available Not Available Not Available albuterol sulfate HFA 90 mcg/actuat ion aerosol inhaler PLEASE SEE ATTACHED FOR DETAILED DIRECTION S active Not Available Not Available No t Available Vitamin D2 1,250 mcg (50,000 unit) capsule TAKE 1 CAPSULE EVERY WEEK BY ORAL ROUTE. active Not Available Not Available No t Available BD Luer-Yesica Syringe 3 mL 22 gauge x 1 USE DIRECTED active Not Available Not Available No t Available BD Luer-Yesica Syringe 3 mL 21 gauge x 1 1/2 TO BE USED ONCE WEEKLY WITH B12 INJECTION S 03/03 completed Not Available Not Available Not Available ketoconazo le 2 % topical cream APPLY TOPICALLY TO AFFECTED AREA(S) ONCE DAILY 10/15 completed Not Available Not Available Not Available ondansetro n 4 mg disintegra ting tablet PLACE 1 TABLET BY TRANSLING UAL ROUTE 3 TIMES A DAY NEEDED FOR 30 DAYS active Not Available Not Available No t Available fluticason e propionate 50 mcg/actuat ion nasal spray,susp ension SPRAY 1 SPRAY INTO EACH NOSTRIL TWICE PER DAY active Not Available Not Available No t Available doxycyclin e hyclate 100 mg tablet TAKE 1 TABLET BY MOUTH TWICE A DAY FOR 10 DAYS 06/17 completed Not Available Not Available Not Available spironolac tone 50 mg tablet TAKE 1 TABLET BY MOUTH EVERY DAY 05/19 completed Not Available Not Available Not Available amoxicilli n 875 mg-potassi um clavulanat e 125 mg tablet Take 1 tablet every 12 hours by oral route for 10 days. 2024 active Not Available Not Available Not Avai lable Vitamin 27 mg iron-0.8 mg tablet TAKE 1 TABLET BY MOUTH DAILY active Not Available Not Available No t Available BD SafetyGlid e Tuberculin Regular Bevel 1 mL 27 x 1/2 syringe USE WITH B12 TO ADMINISTE R B12 DOSAGE. active Not Available Not Available No t Available Atrovent HFA 17 mcg/actuat ion aerosol inhaler INHALE 2 PUFFS 3 TIMES A DAY BY INHALATIO N ROUTE NEEDED FOR 10 DAYS. active Not Available Not Available No t Available chlorhexid ine gluconate 0.12 % mouthwash SWISH AND SPIT 15 MILLILITE RS BY MOUTH TWICE DAILY FOR 2 WEEKS 03/03 completed Not Available Not Available Not Available omeprazole 20 mg tablet,del ayed release Take 1 tablet every day by oral route before meal(s) for 30 days. 2023 active Not Available Not Available Not Avai lable cholecalci ferol (vitamin D3) 50 mcg (2,000 unit) capsule TAKE 1 CAPSULE EVERY DAY BY MOUTH WITH MEAL FOR 30 DAYS. (DISCONTI NUE WEEKLY DOSE) active Not Available Not Available No t Available Low Iron 27 mg iron-1 mg tablet TAKE 1 TABLET BY MOUTH EVERY DAY WITH MEALS FOR 30 DAYS 2022 active Not Available Not Available Not Avai lable Linzess 145 mcg capsule Take 1 capsule every day by oral route for 90 days. 12/07 completed wrong dose Not Available Not Available Not Available Linzess 290 mcg capsule Take 1 capsule every day by oral route for 90 days. 2023 active Not Available Not Available Not Avai lable Balcoltra 0.1 mg-0.02 mg (21)/iron (7) tablet TAKE 1 TABLET BY MOUTH DAILY active Not Available Not Available No t Available M-Willa Plus 27 mg iron-1 mg tablet TAKE 1 TABLET BY MOUTH DAILY active Not Available Not Available No t Available Nurtec ODT 75 mg disintegra ting tablet Take 1 tablet every other day by oral route as directed for 30 days. 2024 active Not Available Not Available Not Avai lable Vitals Date Recorded Body height Body temperature Respiratory rate Body mass index (BMI) Body weight Heart rate Oxygen saturation Oxygen saturation in Arterial blood by Pulse oximetry Systolic blood pressure Diastolic blood pressure Provider Name and Address Organization Details Last Updated DateTime 154.94 cm 97.8 [degF] 16 /min 22.7 kg/m2 04088.1 6 g 78 /min 98 % 98 % 110 mm[Hg] 72 mm[Hg] Roro Ahmadi [place] [facility] 10:31:53 Social History Question Answer Notes LastModified by Organizat ion Details LastModified Time Tobacco Smoking Status Never Smoker Not Available [employer] 11/24/2022 19:26:51 What Is Your Level Of Alcohol Consumption? None [id number] Information not available 11/24/2022 What Is Your Level Of Caffeine Consumption? Occasional [email or web address] Information not available 02/01/2023 In The 14 Days Before Symptom Onset, Have You Had Close Contact With A Laboratory-confirm ed COVID-19 While That Case Was Ill? No [id number] Information not available 11/24/2022 In The 14 Days Before Symptom Onset, Have You Had Close Contact With A Person Who Is Under Investigation For COVID-19 While That Person Was Ill? No [id number] Information not available 11/24/2022 Do You Use Your Seat Belt Or Car Seat Routinely? Yes [email or web address] Information not available 02/01/2023 Do You Participate In Social Media? Yes Information not available 02/01/2023 Do You Feel Stressed (tense, Restless, Nervous, Or Anxious, Or Unable To Sleep At Night)? [id number] [email or web address] Information not available 02/01/2023 Do You Use Any Illicit Or Recreational Drugs? No [email or web address] Information not available 02/01/2023 Sex: Unknown Functional Status None recorded. Mental Status None recorded. Family History Relationship Description Onset Age of this Age Resolved Age Notes LastModified by Organization Details LastModified Time Unspecified Relation Hypertensive disorder [id number] Not available 11/24/2022 19:26:52 Mother Hypothyroidi sm [id number] Not available 11/24/2022 19:26:52 Mother Malignant tumor of breast [id number] [id number] Not available 11/24/2022 19:26:52 Father Open heart surgery [id number] Not available 11/24/2022 19:26:52 Maternal Aunt Malignant tumor of breast MIGRATION.566 [id number] Not available 11/24/2022 19:26:52 Maternal Aunt Malignant tumor of breast MIGRATION.191 [id number] Not available 11/24/2022 19:26:52 Paternal Aunt Malignant tumor of breast [id number].736 [id number] Not available 11/24/2022 19:26:52 Medical History No medical history recorded. Gynecological HistoryNo gynecological history recorded. Obstetrics History GPAL:G 0 P 0 0 0 0 Past Encounters Encounter ID Performer Location Encounter Start Date Encounter Closed Date Diagnosis/Indication Diagnosis SNOMED-CT Code Diagnosis ICD10 Code Diagnosis Note [id number] [facility] [place] [address] [place] [address] 03/03/2021 00:00:00 03/04/2021 06:06:56 [id number] [facility] [place] [address] [place] [address] 05/13/2021 00:00:00 05/13/2021 15:06:21 [id number] [facility] [place] [address] [place] [address] 06/04/2021 00:00:00 06/04/2021 21:26:35 [id number] [facility] [place] [address] [place] [address] 07/30/2021 00:00:00 07/30/2021 20:01:09 [id number] [facility] [place] [address] 08/05/2021 00:00:00 08/05/2021 19:54:41 [id number] [facility] [place] [address] [place] [address] 08/27/2021 00:00:00 08/27/2021 10:11:48 [id number] [facility] [place] [address] [place] [place] [address] 10/15/2021 00:00:00 10/15/2021 19:05:50 [id number] [facility] [place] [address] [place] [address] 12/08/2021 00:00:00 12/24/2021 10:36:21 [id number] [facility] [place] [address] [facility] [place] [address] 01/15/2022 00:00:00 01/15/2022 16:46:13 [id number] [facility] [place] [address] [facility] [place] [address] 03/22/2022 00:00:00 03/26/2022 08:35:22 [id number] [facility] [place] [address] [facility] [place] [address] 04/01/2022 00:00:00 04/22/2022 18:25:39 [id number] [facility] [place] [address] [facility] [place] [address] 04/08/2022 00:00:00 04/08/2022 21:43:14 [id number] [facility] [place] [address] [facility] [place] [address] 04/15/2022 00:00:00 04/15/2022 19:24:29 [id number] [facility] [place] [address] [place] [address] 05/14/2022 00:00:00 05/14/2022 15:33:06 [id number] [facility] [place] [address] [facility] [address] , [address] [place] [address] 06/07/2022 00:00:00 06/07/2022 19:47:09 [id number] [facility] [place] [address] [place] [address] 06/17/2022 00:00:00 06/17/2022 21:20:04 [id number] [facility] [place] [address] [facility] [address] , [place] [address] 08/02/2022 00:00:00 08/02/2022 12:35:54 [id number] [facility] [place] [address] [facility] [address] , [address] [place] [address] 09/01/2022 00:00:00 09/01/2022 19:41:01 [id number] [facility] [place] [address] [facility] [place] [address] 10/26/2022 00:00:00 10/26/2022 19:17:45 [id number] JULIETTE Stephen [facility] [place] [address] [place] [address] [place] [address] 02/01/2023 11:59:03 02/01/2023 12:40:52 Vitamin B12 deficiency (non anemic) 39483075 E53.8 Acute sinusitis 19551097 J01.90 [id number] JULIETTE Stephen [facility] [place] [address] [facility] [place] [address] 02/07/2023 09:43:21 02/07/2023 10:35:46 Hyperlipidemia 53658264 E78.5 Acute sinusitis 23699870 J01.90 [id number] Rc Grier MD [facility] [place] [address] [facility] [place] [address] 07/13/2023 09:52:49 07/13/2023 10:23:25 Adult health examination 851663677 Z00.00 Family his tory of diabetes mellitus type 2 839111088 Z83.3 Seasonal a llergic rhinitis 422308835 J30.2 Vitamin D deficiency 347 11738 E55.9 Screening for malignant neoplasm of breast 100119796 Z12.39 [id number] JULIETTE Stephen [facility] [place] [address] [facility] [place] [address] 09/06/2023 14:12:02 10/13/2023 09:41:17 Cobalamin deficiency 963261430 E53.8 [id number] JULIETTE Stephen [facility] [place] [address] [facility] [place] [address] 09/27/2023 09:59:17 10/10/2023 11:28:05 Cobalamin deficiency 582406853 E53.8 [id number] JULIETTE Stephen [facility] [place] [address] [facility] [place] [address] 09/29/2023 11:36:49 09/29/2023 12:06:31 Seasonal allergic rhinitis 816788881 J30.2 Acute sinusitis 49013230 J01.90 Dyspnea 075102934 R06.00 Hyperlipidemia 01293746 E78.5 Vitamin D deficiency 347 59491 E55.9 [id number] JULIETTE Stephen [facility] [place] [address] [facility] [place] [address] 10/12/2023 09:58:04 10/12/2023 10:18:07 Acute sinusitis 29615370 J01.90 Seasonal a llergic rhinitis 185455555 J30.2 [id number] JULIETTE Stephen [facility] [place] [address] [facility] [place] [address] 10/27/2023 09:40:07 11/09/2023 08:44:46 Vitamin B12 deficiency (non anemic) 75272999 E53.8 Cobalamin deficiency 190 295351 E53.8 [id number] JULIETTE Stephen [facility] [place] [address] [facility] [place] [address] 11/10/2023 09:56:36 11/10/2023 10:02:31 Cobalamin deficiency 718400960 E53.8 [id number] JULIETTE Stephen [facility] [place] [address] [place] [address] 11/17/2023 12:24:20 11/17/2023 12:42:51 Pharyngitis 095909704 J02.9 Hyperlipidemia 68010812 E78.5 Seasonal a llergic rhinitis 996471321 J30.2 Vitamin B1 2 deficiency (non anemic) 15253107 E53.8 Vitamin D deficiency 347 41172 E55.9 [id number] JULIETTE Stephen [facility] [place] [address] [facility] [place] [address] 11/24/2023 09:57:06 12/01/2023 09:52:23 Cobalamin deficiency 937957759 E53.8 [id number] JULIETTE Stephen [facility] [place] [address] [facility] [place] [address] 09/12/2023 10:16:34 09/12/2023 10:27:22 Cobalamin deficiency 725732631 E53.8 [id number] JULIETTE Stephen [facility] [place] [facility] [place] [address] 12/08/2023 10:02:31 12/23/2023 11:47:12 Cobalamin deficiency 778761235 E53.8 [id number] JULIETTE Stephen [facility] [place] [address] [facility] [place] [address] 12/22/2023 10:02:55 01/03/2024 13:32:22 Cobalamin deficiency 125121115 E53.8 [id number] JULIETTE Stephen [facility] [place] [address] [place] [address] 01/05/2024 10:00:29 01/13/2024 12:02:03 Vitamin B12 deficiency (non anemic) 93182225 E53.8 [id number] JULIETTE Stephen [facility] [place] [address] [place] [address] 02/29/2024 10:07:04 02/29/2024 10:43:43 Vitamin B12 deficiency (non anemic) 18983578 E53.8 Hyperlipidemia 12619851 E78.5 Vitamin D deficiency 347 00766 E55.9 Cobalamin deficiency 190 191087 E53.8 Seasonal a llergic rhinitis 200558975 J30.2 Irritable bowel syndrome characterized by constipation 776994154 K58.1 Chronic id iopathic constipation 71684867 K59.04 samples Linzess 290 mcg #24 on 01/19/24 [id number] JULIETTE Stephen [facility] [place] [address] [facility] [place] [address] 01/19/2024 10:08:35 01/27/2024 11:34:10 Vitamin B12 deficiency (non anemic) 90407602 E53.8 [id number] JULIETTE Stephen [facility] [place] [address] [facility] [place] [address] 02/02/2024 09:59:18 02/27/2024 11:18:14 Vitamin B12 deficiency (non anemic) 58207407 E53.8 [id number] JULIETTE Stephen [facility] [place] [address] [facility] [address] [place] [address] 02/16/2024 09:57:27 02/27/2024 11:53:22 Vitamin B12 deficiency (non anemic) 08738267 E53.8 [id number] JULIETTE Stephen [facility] [place] [address] [place] [address] 03/21/2024 09:47:59 03/26/2024 13:32:47 Vitamin B12 deficiency (non anemic) 63936289 E53.8 [id number] JULIETTE Stephen [facility] [place] [address] [place] [address] 04/04/2024 09:22:25 04/04/2024 14:10:53 Cobalamin deficiency 013878988 E53.8 Vitamin B1 2 deficiency (non anemic) 64782140 E53.8 [id number] JULIETTE Stephen [facility] [place] [address] [place] [address] 04/25/2024 10:03:05 05/04/2024 11:51:32 Vitamin B12 deficiency (non anemic) 56425572 E53.8 [id number] JULIETTE Stephen [facility] [place] [address] [place] [place] [address] 05/09/2024 10:08:45 05/18/2024 11:53:37 Vitamin B12 deficiency (non anemic) 58877399 E53.8 [id number] JULIETTE Stephen [facility] [place] [address] [place] [address] 05/23/2024 10:00:23 05/29/2024 10:11:04 Vitamin B12 deficiency (non anemic) 93717658 E53.8 [id number] JULIETTE Stephen [facility] [place] [address] [place] [address] 06/06/2024 10:06:49 06/25/2024 15:18:42 Vitamin B12 deficiency (non anemic) 20160899 E53.8 [id number] JULIETTE Stephen [facility] [place] [address] [place] [address] 06/20/2024 10:20:08 07/09/2024 13:35:55 Vitamin B12 deficiency (non anemic) 12430774 E53.8 [id number] JULIETTE Stephen [facility] [place] [address] [place] [address] 07/04/2024 09:57:27 07/25/2024 15:07:44 Vitamin B12 deficiency (non anemic) 73839973 E53.8 [id number] JULIETTE Stephen [facility] [place] [address] [facility] [place] [address] 07/18/2024 09:59:19 07/18/2024 10:44:27 Vitamin B12 deficiency (non anemic) 27445133 E53.8 Stomach ache 330214420 R 10.9 from atorvastat in 40 mg Screening mammography 24 823459 Z12.31 Pharyngitis 785155647 J0 2.9 Adult heal th examination 404242591 Z00.00 [id number] JULIETTE Stephen [facility] [place] [address] [facility] [place] [address] 2024 10:04:35 08/27/2024 09:11:49 Vitamin B12 deficiency (non anemic) 95262479 E53.8 [id number] JULIETTE Stephen [facility] [place] [address] [facility] [place] [address] 08/15/2024 09:58:43 09/04/2024 09:56:40 Vitamin B12 deficiency (non anemic) 48674019 E53.8 [id number] JULIETTE Stephen [facility] [address] [place] [address] 08/29/2024 10:16:36 08/30/2024 08:06:54 Vitamin B12 deficiency (non anemic) 43342212 E53.8 [id number] JULIETTE Stephen [facility] [address] [place] [address] 09/12/2024 10:16:26 09/12/2024 10:22:25 Vitamin B12 deficiency (non anemic) 83003528 E53.8 [id number] JULIETTE Stephen [address] [address] 09/27/2024 12:35:26 09/27/2024 15:15:57 Vitamin B12 deficiency (non anemic) 93353869 E53.8 [id number] JULIETTE Stephen [address] [address] 10/18/2024 10:22:55 10/18/2024 14:43:27 Vitamin B12 deficiency (non anemic) 40529234 E53.8 [id number] JULIETTE Stephen [address] [address] 11/01/2024 10:12:33 11/01/2024 10:39:06 Cobalamin deficiency 424410977 E53.8 Vitamin B1 2 deficiency (non anemic) 18606503 E53.8 [id number] JULIETTE Stephen [address] [address] 11/26/2024 10:13:45 11/26/2024 11:00:38 Migraine 79240556 G43.909 Acute left otitis media 828998226 H66.92 Acute sinusitis 12447655 J01.90 Serum isai min B12 below reference range 029454241 R79.89 Seasonal a llergic rhinitis 314019048 J30.2 Vitamin D deficiency 347 05201 E55.9 Vitamin B1 2 deficiency (non anemic) 58691721 E53.8 Health Concerns Section Related Observation LastModified by Organization Detai ls LastModified Time None Recorded Concern Status LastModified by Organization Details LastModified Time None Recorded Advance Directives Directive None Recorded Payers Encounter Date Sequence Insurance Name Policy Number Policy Arana Covered Member ID Arana Member ID Guarantor Name 09/12/2024 2 [facility] ON OR AFTER 03/26/21 (MEDICAID REPLACEMENT - HMO) Eri Liao [id number] Eri Yanni 09/27/2024 2 [facility] ON OR AFTER 03/26/21 (MEDICAID REPLACEMENT - HMO) Erijean Castilloara [id number] Eri Yanni 09/27/2024 1 [place] [id number] Tarbreanna Yanni [id number] Eri Yanni 10/18/2024 2 [facility] ON OR AFTER 03/26/21 (MEDICAID REPLACEMENT - HMO) Erijean Castilloara [id number] Eri Yanni 10/18/2024 1 [place] [id number] Tarek Yanni [id number] Eri Yanni 11/01/2024 2 [facility] ON OR AFTER 03/26/21 (MEDICAID REPLACEMENT - HMO) Eri Liao [id number] Eri Yanni 11/01/2024 1 [place] [id number] Tarbreanna Yanni [id number] Eri Yanni 11/26/2024 1 [place] [id number] Tarek Yanni [id number] Eri Liao Notes Date Note Type Note Provider Name and Address Organization Details Recorded Time 11/26/2024 text/html cannot tolerate sumatriptan , nor relpax JULIETTE Stephen [address] [place] [address], [phone], [facility] [employer] [facility] 12/01/2024 11:40:08 OBGyn Episode No OBEpisode recorded.
--- OUTSIDE RECORDS SUMMARY | 2024-12-04 10:46 | XMS_ITS | Encounter Summary ---
Author Organization [facility] Address [address] [place] [address] Care Team Providers Care Audit Clerk Name Role Phone Rc Grier MD Primary Care Provider [phone] Encounter Details Date Type Department Care Team (Late st Contact Info) Description 12/01/2024 External Device Data [place] ABSTRACTION Provider, Abstract NO ADDRESS ON FILE Social History Tobacco Use Types Packs/Day Years Used Date Smoking Tobacco: Never Smokeless Tobacco: Never Alcohol Use Standard Drinks/Week Comments Never 0 (1 standard drink = 0.6 oz pur e alcohol) Comments No Sex and Gender Information Value Date Recorded Sex Assigned at Not on file Legal Sex Female 11:50 AM CDT Gender Identity Not on file Sexual Orientation Not on file documented as of this encounter Plan of Treatment Upcoming Encounters Date Type Department Care Team (Late st Contact Info) Description 12/07/2024 10:00 AM CDT Office Visit [facility] Oncology and Hematology - [place] [address] [place] [address] [facility] [address] [place] [address] Bhanu Magdaleno MD [address] [facility] [address] [place] [address] documented as of this encounter Visit Diagnoses Not on filedocumented in this encounter Care Teams Audit Clerk Relationship Specialty Start Date End Date Rc Grier MD PCP - General Family Practice 02/16/23 documented as of this encounter
[2024-12-04 14:49] LABS: Iron 56 ug/dL (37-170)
[2024-12-04 14:58] LABS: Percent Iron Saturation 19 % (20-50)
[2024-12-04 15:56] LABS: Folic Acid 6.6 ng/mL (2.76->20)
== END 2024-12-04 09:37 | disposition home or self-care (01) ==
PROVIDERS: PCP Family Medicine; Visit Provider Internal Medicine Hematology & Oncology
DX: E53.8 Deficiency of other specified B group vitamins (principal); D50.0 Iron deficiency anemia secondary to blood loss (chronic)
CPT/HCPCS: 36415; 82607; 82728; 82746; 83540; 83550; 85027

== ENCOUNTER 2024-12-18 13:57 | Outpatient (CLI) | payer BC, SELFPAY ==
--- NOTE | ~2024-12-18 | CT_ITS ---
EXAMINATION: CT pelvis w con DATE: 12/18/2024 14:22 INDICATION: Inguinal hernia TECHNIQUE: Computed tomography (CT) of the pelvis was performed with 100 cc Omnipaque 350 intravenous contrast. The dose-length product was 165.67 mGy-cm. Automated exposure control and iterative recons truction technique were employed. COMPARISON: CT dated 12/18/24 FINDINGS: Small amount of free fluid in the pelvis. Prominent parametrial vessels and left ovarian ve in, compatible with pelvic congestion syndrome. No evidence for hernia. No significant vascular abnor mality otherwise. No free air. Moderate colonic fecal loading. Nonobstructive bowel gas pattern. IMPRESSION: 1. Dilated left ovarian vein and parametrial vessels, compatible with pelvic congestion syndrome. Reviewed, dictated and finalized at location A. IMPRESSION: 1. Dilated left ovarian vein and parametrial vessels, compatible with pelvic co ngestion syndrome.
--- OUTSIDE RECORDS SUMMARY | 2024-12-18 16:22 | XMS_ITS | Clinical Summary ---
Author Organization [facility] Address [address] [place] [address] Care Team Providers Care Manager Simulation Name Role Phone Rc Grier MD Primary Care Provider Allergies Active Allergy Reactions Criticality Noted Date [...] Encounters Date Type Department Care Team Description 12/12/2024 External Device Data [place] ABSTRACTION Provider, Abstract 12/07/2024 10:00 AM CDT Office Visit [facility] Oncology and Hematology - [place] [address] [place] [address] Bhanu Magdaleno MD Iron deficiency anemia due to chronic blood loss (Primary Dx) 12/05/2024 External Device Data [place] ABSTRACTION Provider, Abstract 12/05/2024 Orders Only [facility] On[facility] and Hematology - [place] [address] [place] [address] Bhanu Magdaleno MD 12/04/2024 External Device Data [place] ABSTRACTION Provider, Abstract 12/04/2024 Orders Only 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 Oncology and Hematology - [employer] [address] [facility] [address] [place] [address] Bhanu Magdaleno MD [address] [facility] [address] [place] [address] Health Maintenance Due Date Last Done Comments DTAP/TDAP/TD VACCINES (1 - Tdap) 2000 HEPATITIS B VACCINES (1 of 3 - 19+ 3-dose series) 2000 PAP SMEAR 2002 CERVICAL CANCER SCREENING 2011 HPV/Cotest 2011 PAP SMEAR 2011 BREAST CANCER SCREENING 2021 INFLUENZA VACCINE (#1) 2024 HPV VACCINES Aged Out No longer eligi ble based on patient's age to complete this topic Procedures Procedure Name Priority Date/Time Associated Diagnosis Comments CBC WITH AUTODIFFERENTIAL Routine 2024 2:48 PM CDT IRON, TIBC, AND PERCENT SATURATION Routine 12/04/2024 9:43 AM CDT from Last 3 Months Results * CBC WITH AUTODIFFERENTIAL (12/04/2024 2:48 PM CDT) Blood us Bhanu Magdaleno MD HEMATOLOGY ORDERABLES Final Res ult * IRON, TIBC, AND PERCENT SATURATION (12/04/2024 9:43 AM CDT) Blood us Bhanu Magdaleno MD CHEMISTRY ORDERABLES Final Resu lt from Last 3 Months Insurance MEDICAID Care Teams Manager Simulation Relationship Specialty Start Date End Date Rc Grier MD PCP - General Family Practice 02/16/23
--- OUTSIDE RECORDS SUMMARY | 2024-12-18 16:22 | XMS_ITS | Data Portability ---
Author Organization [place] - [facility], Main Office Address [address] [place] [address] Assessment No assessment recorded. Plan of Treatment Reminders Order Date Submit Date Provider Last Modified By Organization Details Last Modified Time Details Appointments None recorded. Lab None recorded. Referral None recorded. Procedures None recorded. Surgeries None recorded. Imaging None recorded. Medication Orders cyanocobala min (vit B-12) 1,000 mcg/mL injection solution [address] [id number], [address] [place], [place], [id number], 5 12:01:26 Nurtec ODT 75 mg disintegrat ing tablet 2024 025 [facility]221, [address] [place], [place], [id number], 5 10:52:09 amoxicillin 875 mg-potassiu m clavulanate 125 mg tablet 2024 025 [facility]08916, [address] [place], [place], [id number], 5 10:53:45 fluconazole 150 mg tablet 2024 025 [facility]52742, [address] [place], [id number], 5 10:54:37 cyanocobala min (vit B-12) 1,000 mcg/mL injection solution 2024 025 [email or web address] 4 Not available 5 12:56:55 cyanocobala min (vit B-12) 1,000 mcg/mL injection solution 2024 025 [email or web address] Not available 5 12:54:43 cyanocobala min (vit B-12) 1,000 mcg/mL injection solution 2024 025 [email or web address] 200 Not available 5 16:26:16 Patient TargetsNo targets recorded. Patient InstructionsNo instructions recorded. Reason for Referral None Reported. Problems Name Problem SNOMED Code Status Onset Date Resolution Date Notes Provider Name and Address Organization Details Recorded Time Cobalamin deficiency 518263832 Active 2021 Not Available [facility] 3 04:20:42 Wrist joint pain 165515612 Active Not Available [facility] 3 04:20:42 Radial styloid tenosynovitis 85618267 Active Not Available [facility] 3 04:20:42 Vitamin B12 deficiency (non anemic) 81613990 Active 2021 Not Available [facility] 3 04:20:42 Acute sinusitis 82913050 Active 2022 Not Available [facility] 3 04:20:42 Hyperlipidemi a 73722100 Active 2022 Not Available [facility] 3 04:20:42 Seasonal allergic rhinitis 663566184 Active 2022 Not Available [facility] 3 04:20:42 Vitamin D deficiency 10108390 Active 2022 Not Available [facility] 3 04:20:42 Dyspnea 795002099 Active 2023 JULIETTE Stephen [address] [address], [place], [address] , [facility] [employer] [facility] 4 11:58:46 Pharyngitis 300440104 Active 2023 JULIETTE Stephen [address], [address], [place], [address] , [place] [facility] 4 12:38:20 Chronic idiopathic constipation 40041386 Active 2023 JULIETTE Stephen [address], [address], [place], [address] , [place] [facility] 4 10:11:42 Constipation 82498675 Active 2023 Keysha Penn RN null, [place] [facility] 4 10:14:22 Contraception care Active 2023 JULIETTE Stephen [address], [address], [place], [address] , [place] [facility] 4 10:10:59 Irritable bowel syndrome characterized by constipation 090580240 Active 2023 JULIETTE Stephen [address], [address], [place], [address] , [place] [facility] 4 21:05:52 Stomach ache 006015733 Active 2023 JULIETTE Stephen [address], [address], [place], [address] , [place] [facility] 4 10:37:25 Screening mammography Active 2023 JULIETTE Stephen [address], [address], [place], [address] , [place] [facility] 4 10:38:47 Adult health examination Active 2023 JULIETTE Stephen [address], [address], [place], [address] , [place] [facility] 4 10:50:50 Nausea 680338665 Active 2023 JULIETTE Stephen [address], [address], [place], [address] , [place] [facility] 4 15:07:54 Wheezing 24842724 Active 2023 JULIETTE Stephen [address], [address], [place], [address] , [employer] [facility] 4 15:09:01 Migraine 41343875 Active 2024 JULIETTE Stephen [address], [place], [address] , [employer] [facility] 5 09:59:29 Serum vitamin B12 below reference range 379428785 Active 2024 JULIETTE Stephen [address], [address], [place], [address] , [employer] 5 10:31:18 Acute left otitis media 605722670 Active 2024 JULIETTE Stephen [address] [employer], [place], [address] , [employer] [facility] 5 10:52:48 Problem Notes None recorded. Medical Equipment None Reported. Allergies Allergen ID Allergen Name Allergen Category Reaction Reaction Severity Criticality Documentation Date Start Date Code Code System Note Provider Name and Address Organization Details Recorded Time 21430 codeine medicatio n Not available Not available Not available 11/24/2022 2670 RxNorm Not Available [facility] 3 19:28:33 03645 aspirin medicatio n Not available Not available Not available 11/24/2022 1191 RxNorm Not Available [facility] 3 19:28:33 19060 latex environme nt,medica tion Not available Not available Not available 11/17/2023 40885 91 RxNorm JULIETTE Stephen [address], [address], [place], [address], [employer] [facility] 4 12:37:58 Medications Name Sig Start Date [...] beatty (vit B-12) 1,000 mcg/mL injection solution INJECT 1 ML INTERMUSC ULARLY EVERY 2 WEEKS active Not Available Not Available No t Available fluvastati n 20 mg capsule active [...] mg-potassi um clavulanat e 125 mg tablet TAKE 1 TABLET BY MOUTH EVERY 12 HOURS FOR 10 DAYS active Not Available Not Available No t Available Vitamin 27 mg iron-0.8 mg tablet TAKE [...] Nurtec ODT 75 mg disintegra ting tablet DISSOLVE 1 TABLET ON THE TONGUE EVERY OTHER DAY DIRECTED active Not Available Not Available No t Available Vitals Date Recorded Body height Body temperature Respiratory rate Body mass index (BMI) Body weight Heart rate Oxygen saturation Oxygen saturation in Arterial blood by Pulse oximetry Systolic blood pressure Diastolic blood pressure Provider Name and Address Organization Details Last Updated DateTime 154.94 cm 97.8 [degF] 16 /min 22.7 kg/m2 66788.1 6 g 78 /min 98 % 98 % 110 mm[Hg] 72 mm[Hg] Roro Ahmadi [place] [facility] 10:31:53 Social History Question Answer Notes LastModified by Organizat ion Details LastModified Time Tobacco Smoking Status Never Smoker Not Available [employer] 11/24/2022 19:26:51 What Is Your Level Of Alcohol Consumption? None [id number] Information not available 11/24/2022 What Is Your Level Of Caffeine Consumption? Occasional [email or web address] Information not available 02/01/2023 In The 14 Days Before Symptom Onset, Have You Had Close Contact With A Laboratory-confirm ed COVID-19 While That Case Was Ill? No [id number] Information not available 11/24/2022 In The 14 Days Before Symptom Onset, Have You Had Close Contact With A Person Who Is Under Investigation For COVID-19 While That Person Was Ill? No [id number] Information not available 11/24/2022 Do You Use Your Seat Belt Or Car Seat Routinely? Yes Information not available 02/01/2023 Do You Participate In Social Media? Yes [email or web address] Information not available 02/01/2023 Do You Feel Stressed (tense, Restless, Nervous, Or Anxious, Or Unable To Sleep At Night)? [id number] Information not available 02/01/2023 Do You Use Any Illicit Or Recreational Drugs? No [email or web address] Information not available 02/01/2023 Sex: Unknown Functional Status None recorded. Mental Status None recorded. Family History Relationship Description Onset Age of this Age Resolved Age Notes LastModified by Organization Details LastModified Time Unspecified Relation Hypertensive disorder [id number].332 [id number] Not available 11/24/2022 19:26:52 Mother Hypothyroidi sm MIGRATION.483 [id number] Not available 11/24/2022 19:26:52 Mother Malignant tumor of breast MIGRATION.043 [id number] Not available 11/24/2022 19:26:52 Father Open heart surgery MIGRATION.417 [id number] Not available 11/24/2022 19:26:52 Maternal Aunt Malignant tumor of breast MIGRATION.848 [id number] Not available 11/24/2022 19:26:52 Maternal Aunt Malignant tumor of breast MIGRATION.669 [id number] Not available 11/24/2022 19:26:52 Paternal Aunt Malignant tumor of breast MIGRATION.696 [id number] Not available 11/24/2022 19:26:52 Medical History No medical history recorded. Gynecological HistoryNo gynecological history recorded. Obstetrics History GPAL:G 0 P 0 0 0 0 Past Encounters Encounter ID Performer Location Encounter Start Date Encounter Closed Date Diagnosis/Indication Diagnosis SNOMED-CT Code Diagnosis ICD10 Code Diagnosis Note [id number] [facility] [place] [address] 03/03/2021 00:00:00 03/04/2021 06:06:56 [id number] [facility] [place] [address] 05/13/2021 00:00:00 05/13/2021 15:06:21 [id number] [facility] [place] [address] 06/04/2021 00:00:00 06/04/2021 21:26:35 [id number] [facility] [place] [address] 07/30/2021 00:00:00 07/30/2021 20:01:09 [id number] [facility] [place] [address] 08/05/2021 00:00:00 08/05/2021 19:54:41 [id number] [facility] [place] [address] [place] [address] 08/27/2021 00:00:00 08/27/2021 10:11:[id number] [facility] [place] [address] [place] [address] 10/15/2021 00:00:00 10/15/2021 19:05:[id number] [facility] [place] [address] [place] [address] 12/08/2021 00:00:00 12/24/2021 10:36:[id number] [facility] [place] [address] , [place] [address] 01/15/2022 00:00:00 01/15/2022 16:46:[id number] [facility] [place] [address] [place] [address] 03/22/2022 00:00:00 03/26/2022 08:35:[id number] [facility] [place] [address] [place] [address] 04/01/2022 00:00:00 04/22/2022 18:25:[id number] [facility] [place] [address] [place] [address] 04/08/2022 00:00:00 04/08/2022 21:43:14 [id number] [facility] [place] [address] [place] [address] 04/15/2022 00:00:00 04/15/2022 19:24:[id number] [facility] [place] [address] [place] [address] 05/14/2022 00:00:00 05/14/2022 15:33:[id number] [facility] [place] [address] [place] [address] 06/07/2022 00:00:00 06/07/2022 19:47:09 [id number] [facility] [place] [address] [place] [address] 06/17/2022 00:00:00 06/17/2022 21:20:04 [id number] [facility] [place] [address] [place] [address] 08/02/2022 00:00:00 08/02/2022 12:35:54 [id number] [facility] [place] [address] [facility] [place] [address] 09/01/2022 00:00:00 09/01/2022 19:41:01 [id number] [facility] [place] [address] [facility] [place] [address] 10/26/2022 00:00:00 10/26/2022 19:17:45 [id number] JULIETTE Stephen [facility] [place] [address] [facility] [place] [address] 02/01/2023 11:59:03 02/01/2023 12:40:52 Vitamin B12 deficiency (non anemic) 88791841 E53.8 Acute sinusitis 60888772 J01.90 [id number] JULIETTE Stephen [facility] [place] [address] [facility] [place] [address] 02/07/2023 09:43:21 02/07/2023 10:35:46 Hyperlipidemia 89779584 E78.5 Acute sinusitis 65544932 J01.90 [id number] Rc Grier MD [facility] [place] [address] [facility] [place] [address] 07/13/2023 09:52:49 07/13/2023 10:23:25 Adult health examination 714930153 Z00.00 Family his tory of diabetes mellitus type 2 941323659 Z83.3 Seasonal a llergic rhinitis 619407022 J30.2 Vitamin D deficiency 347 55049 E55.9 Screening for malignant neoplasm of breast 468714613 Z12.39 [id number] JULIETTE Stephen [facility] [place] [address] [place] [address] 09/06/2023 14:12:02 10/13/2023 09:41:17 Cobalamin deficiency 280136934 E53.8 [id number] JULIETTE Stephen [facility] [place] [address] [facility] [place] [address] 09/27/2023 09:59:17 10/10/2023 11:28:05 Cobalamin deficiency 687523489 E53.8 [id number] JULIETTE Stephen [facility] [place] [address] [place] [address] 09/29/2023 11:36:49 09/29/2023 12:06:31 Seasonal allergic rhinitis 470607693 J30.2 Acute sinusitis 67508318 J01.90 Dyspnea 729806573 R06.00 Hyperlipidemia 93199457 E78.5 Vitamin D deficiency 347 93561 E55.9 [id number] JULIETTE Stephen [facility] [place] [address] [facility] [place] [address] 10/12/2023 09:58:04 10/12/2023 10:18:07 Acute sinusitis 22239059 J01.90 Seasonal a llergic rhinitis 169886987 J30.2 [id number] JULIETTE Stephen [facility] [place] [address] [place] [address] 10/27/2023 09:40:07 11/09/2023 08:44:46 Vitamin B12 deficiency (non anemic) 62830688 E53.8 Cobalamin deficiency 190 480797 E53.8 [id number] JULIETTE Stephen [facility] [place] [address] [place] [address] 11/10/2023 09:56:36 11/10/2023 10:02:31 Cobalamin deficiency 245388250 E53.8 [id number] JULIETTE Stephen [facility] [place] [address] [place] [address] 11/17/2023 12:24:20 11/17/2023 12:42:51 Pharyngitis 011891212 J02.9 Hyperlipidemia 12295897 E78.5 Seasonal a llergic rhinitis 321004248 J30.2 Vitamin B1 2 deficiency (non anemic) 23522026 E53.8 Vitamin D deficiency 347 13444 E55.9 [id number] JULIETTE Stephen [facility] [place] [address] [place] [address] 11/24/2023 09:57:06 12/01/2023 09:52:23 Cobalamin deficiency 713135870 E53.8 [id number] JULIETTE Stephen [facility] [place] [address] [place] [address] 09/12/2023 10:16:34 09/12/2023 10:27:22 Cobalamin deficiency 739947276 E53.8 [id number] JULIETTE Stephen [facility] [place] [address] [place] [address] 12/08/2023 10:02:31 12/23/2023 11:47:12 Cobalamin deficiency 926989171 E53.8 [id number] JULIETTE Stephen [facility] [place] [address] [place] [address] 12/22/2023 10:02:55 01/03/2024 13:32:22 Cobalamin deficiency 478181135 E53.8 [id number] JULIETTE Stephen [facility] [place] [address] [place] [place] [address] 01/05/2024 10:00:29 01/13/2024 12:02:03 Vitamin B12 deficiency (non anemic) 33817646 E53.8 [id number] JULIETTE Stephen [facility] [place] [address] [address] [place] [place] [address] 02/29/2024 10:07:04 02/29/2024 10:43:43 Vitamin B12 deficiency (non anemic) 99000207 E53.8 Hyperlipidemia 70984662 E78.5 Vitamin D deficiency 347 34843 E55.9 Cobalamin deficiency 190 882579 E53.8 Seasonal a llergic rhinitis 597445146 J30.2 Irritable bowel syndrome characterized by constipation 315232380 K58.1 Chronic id iopathic constipation 01531385 K59.04 samples Linzess 290 mcg #24 on 01/19/24 [id number] JULIETTE Stephen [facility] [place] [address] [place] [address] 01/19/2024 10:08:35 01/27/2024 11:34:10 Vitamin B12 deficiency (non anemic) 39106813 E53.8 [id number] JULIETTE Stephen [facility] [place] [address] [place] [address] 02/02/2024 09:59:18 02/27/2024 11:18:14 Vitamin B12 deficiency (non anemic) 87758148 E53.8 [id number] JULIETTE Stephen [facility] [place] [address] [place] [address] 02/16/2024 09:57:27 02/27/2024 11:53:22 Vitamin B12 deficiency (non anemic) 48724421 E53.8 [id number] JULIETTE Stephen [facility] [place] [address] [place] [address] 03/21/2024 09:47:59 03/26/2024 13:32:47 Vitamin B12 deficiency (non anemic) 81337211 E53.8 [id number] JULIETTE Stephen [facility] [place] [address] [place] [address] 04/04/2024 09:22:25 04/04/2024 14:10:53 Cobalamin deficiency 795471645 E53.8 Vitamin B1 2 deficiency (non anemic) 92077822 E53.8 [id number] JULIETTE Stephen [facility] [place] [address] [place] [address] 04/25/2024 10:03:05 05/04/2024 11:51:32 Vitamin B12 deficiency (non anemic) 86111471 E53.8 [id number] JULIETTE Stephen [facility] [place] [address] [facility] [place] [address] 05/09/2024 10:08:45 05/18/2024 11:53:37 Vitamin B12 deficiency (non anemic) 41741138 E53.8 [id number] JULIETTE Stephen [facility] [place] [address] [facility] [place] [address] 05/23/2024 10:00:23 05/29/2024 10:11:04 Vitamin B12 deficiency (non anemic) 90271475 E53.8 [id number] JULIETTE Stephen [facility] [place] [address] [place] [address] 06/06/2024 10:06:49 06/25/2024 15:18:42 Vitamin B12 deficiency (non anemic) 95759444 E53.8 [id number] JULIETTE Stephen [facility] [place] [address] [place] [address] 06/20/2024 10:20:08 07/09/2024 13:35:55 Vitamin B12 deficiency (non anemic) 28115677 E53.8 [id number] JULIETTE Stephen [facility] [place] [address] [place] [address] 07/04/2024 09:57:27 07/25/2024 15:07:44 Vitamin B12 deficiency (non anemic) 96031203 E53.8 [id number] JULIETTE Stephen [facility] [place] [address] [place] [address] 07/18/2024 09:59:19 07/18/2024 10:44:27 Vitamin B12 deficiency (non anemic) 83149810 E53.8 Stomach ache 642807968 R 10.9 from atorvastat in 40 mg Screening mammography 24 726242 Z12.31 Pharyngitis 436559710 J0 2.9 Adult heal th examination 408644334 Z00.00 [id number] JULIETTE Stephen [facility] [place] [address] [facility] [place] [address] 2024 10:04:35 08/27/2024 09:11:49 Vitamin B12 deficiency (non anemic) 29838049 E53.8 [id number] JULIETTE Stephen [facility] [place] [address] [facility] [place] [address] 08/15/2024 09:58:43 09/04/2024 09:56:40 Vitamin B12 deficiency (non anemic) 88192080 E53.8 [id number] JULIETTE Stephen [facility] [address] [place] [address] 08/29/2024 10:16:36 08/30/2024 08:06:54 Vitamin B12 deficiency (non anemic) 56566622 E53.8 [id number] JULIETTE Stephen [facility] [address] [place] [address] 09/12/2024 10:16:26 09/12/2024 10:22:25 Vitamin B12 deficiency (non anemic) 20112453 E53.8 [id number] JULIETTE Stephen [address] [address] 09/27/2024 12:35:26 09/27/2024 15:15:57 Vitamin B12 deficiency (non anemic) 32405498 E53.8 [id number] JULIETTE Stephen [address] [address] 10/18/2024 10:22:55 10/18/2024 14:43:27 Vitamin B12 deficiency (non anemic) 66074227 E53.8 [id number] JULIETTE Stephen [address] [address] 11/01/2024 10:12:33 11/01/2024 10:39:06 Cobalamin deficiency 314208462 E53.8 Vitamin B1 2 deficiency (non anemic) 63765826 E53.8 [id number] JULIETTE Stephen [address] [address] 11/26/2024 10:13:45 11/26/2024 11:00:38 Migraine 99514896 G43.909 Acute left otitis media 894647423 H66.92 Acute sinusitis 14934156 J01.90 Serum isai min B12 below reference range 844145410 R79.89 Seasonal a llergic rhinitis 864872067 J30.2 Vitamin D deficiency 347 78368 E55.9 Vitamin B1 2 deficiency (non anemic) 49213878 E53.8 [id number] Yair Cook MD [address] [address] 12/10/2024 10:14:23 12/10/2024 11:20:41 Serum vitamin B12 below reference range 943425068 R79.89 Health Concerns Section Related Observation LastModified by Organization Detai ls LastModified Time None Recorded Concern Status LastModified by Organization Details LastModified Time None Recorded Advance Directives Directive None Recorded Payers Encounter Date Sequence Insurance Name Policy Number Policy Arana Covered Member ID Arana Member ID Guarantor Name 09/27/2024 2 [facility] ON OR AFTER 03/26/21 (MEDICAID REPLACEMENT - HMO) Eri Liao [id number] Eri Liao 09/27/2024 1 [place] [id number] Tarbreanna Yanni [id number] Eri Yanni 10/18/2024 2 [facility] ON OR AFTER 03/26/21 (MEDICAID REPLACEMENT - HMO) Eri Liao [id number] Eri Castilloara 10/18/2024 1 [place] [id number] Tarek Yanni [id number] Eri Yanni 11/01/2024 2 [facility] ON OR AFTER 03/26/21 (MEDICAID REPLACEMENT - HMO) Eri Liao [id number] Eri Castilloara 11/01/2024 1 [place] [id number] Tarek Yanni [id number] Eri Yanni 11/26/2024 1 [place] [id number] Tarek Yanni [id number] Eri Yanni 12/10/2024 1 [place] [id number] Tarek Yanni [id number] Eri Liao Notes Date Note Type Note Provider Name and Address Organization Details Recorded Time 11/26/2024 text/html cannot tolerate sumatriptan , nor relpax JULIETTE Stephen [address] [address], [place], [address], [place] [facility] [place] [employer] 12/01/2024 11:40:08 OBGyn Episode No OBEpisode recorded.
--- OUTSIDE RECORDS SUMMARY | 2024-12-18 16:22 | XMS_ITS | Clinical Summary ---
Author Organization [facility] Address [address] [place] [id number] Care Team Providers Care Pharmaceutical Development Technician Name Role Phone NatividadLuna EXERCISER HORSE Primary Care Provider [phone] Allergies Active Allergy Reactions Criticality Noted Date Comments Aspirin Swelling Low 08/09/2012 Codeine Itching,Swelling Low 08/09/2012 Ibuprofen Hives 12/12/2024 Latex Hives,Itching,Rash,Redness High 1 Medications Levonorgest-Eth Estradiol-Iron 0.1-20 MG-MCG(21) Tab Take by mouth. Activ e Cholecalciferol (VITAMIN D3) 50 MCG (1999 UT) Cap TAKE 1 CAPSULE EVERY DAY BY MOUTH WITH MEAL FOR 30 DAYS. (DISCONTINUE WEEKLY DOSE) 024 Active cyanocobalamin (B-12) 1000 MCG/ML injection INJECT 1 ML (1,000 MCG) BY INTRAMUSCULAR INJECTION EVERY 2 WEEKS Strength: 1,000 mcg/mL 024 Active ondansetron (ZOFRAN-ODT) 4 MG disintegrating tablet Take 1 tablet (4 mg total) by mouth every 8 (eight) hours as needed. 024 Active NURTEC 75 MG disintegrating tablet Take 1 tablet (75 mg total) by mouth daily as needed. 025 Active atorvastatin (LIPITOR) 40 MG tablet Take 1 tablet (40 mg total) by mouth daily. 025 Active propranolol LA (INDERAL LA) 60 MG 24 hr capsuleIndication s:Migraine without aura and without status migrainosus, not intractable Take 1 capsule (60 mg total) by mouth daily. 30 capsule 2 025 Active cetirizine (ZYRTEC ALLERGY) 10 MG tablet Take 1 tablet (10 mg total) by mouth daily. Active Ferrous Sulfate (IRON OR) Take 1 tablet by mouth daily. 2024 Discontinued Encounters Date Type Department Care Team Description 12/12/2024 1:20 PM CDT Office Visit [facility] - [address] [place] [address] Luna Henson NP New Patient 12/12/2024 Travel from Last 3 Months Family History Medical History Relation Comments Heart Attack Father Hyperlipidemia Father Hypertension Father Hyperlipidemia Mother Hypothyroidism Mother prediabetes Mother Breast Cancer Paternal Aunt Relation Status Comments Father Mother Paternal Aunt Social History Tobacco Use Types Packs/Day Years Used Date Smoking Tobacco: Never Passive Smoke Exposure: Never Smokeless Tobacco: Never Tobacco Cessation:Counseling Given: No Alcohol Use Standard Drinks/Week Comments Never 0 (1 standard drink = 0.6 oz pur e alcohol) PHQ-2 Answer Date Recorded Patient Health Questionnaire-2 Score 0 12/12/2024 Comments No Sex and Gender Information Value Date Recorded Sex Assigned at Female 12/12/2024 7:30 AM CDT Legal Sex Female 8:36 AM CDT Gender Identity Female 12/12/2024 7:30 AM CDT Sexual Orientation Straight 12/12/2024 1: 49 PM CDT Last Filed Vital Signs Vital Sign Reading Time Taken Comments Blood Pressure 106/71 12/12/2024 1:44 PM CDT Pulse 83 12/12/2024 1:44 PM CDT Temperature 36.7 C (98.1 F) 12/12/2024 1:44 PM CDT Respiratory Rate 18 12/12/2024 1:44 PM CDT Oxygen Saturation 100% 12/12/2024 1:44 PM CDT Inhaled Oxygen Concentration - - Weight 53.9 kg (118 lb 12.8 oz) 12/12/2024 1:44 PM CDT Height 152.4 cm (5') 12/12/2024 1:44 PM CDT Body Mass Index 23.2 12/12/2024 1:44 PM CDT Plan of Treatment Upcoming Encounters Date Type Department Care Team (Late st Contact Info) Description 12/19/2024 10:30 AM CDT Laboratory Only [facility] - [place] [address] [place] [address] Luna Henson NP [address] [facility] [address] [place] [address] 01/16/2025 9:00 AM CDT Office Visit [facility] Medical [facility] - [place] [address] [place] [address] Luna Henson NP [address] [address] [place] [address] Health Maintenance Due Date Last Done Comments [...] 5 season) 2024 Influenza Adult (#1) 2024 PHQ-2 (Physician [place]) Completed 12/12/2024 HPV Vaccines Aged Out No longer eligi [...] to 64 Years) Aged Out No longer eligi ble based on patient's age to complete this topic RSV Immunizations Under 20 Months Aged Out No longer eligible based on patient's age to complete this topic Insurance [facility] Care Teams Pharmaceutical Development Technician Relationship Specialty Start Date End Date Luna Hensno NP [address] [facility] [address] [place] [address] PCP - General NURSE PRACTITIONER 12/03/24
== END 2024-12-18 13:58 | disposition home or self-care (01) ==
PROVIDERS: PCP Family Medicine; Visit Provider Obstetrics & Gynecology
DX: K40.90 Unilateral inguinal hernia, without obstruction or gangrene, not specified as recurrent (principal)
CPT/HCPCS: 72193; Q9967

== ENCOUNTER 2025-02-05 07:49 | Outpatient (CLI) | payer BC, SELFPAY ==
--- OUTSIDE RECORDS SUMMARY | 2025-02-05 07:56 | XMS_ITS | Clinical Summary ---
[facility] Address [address] [place] [address] Care Team Providers Care Push Button Switch Assembler Name Role Phone Rc Grier MD Primary Care Provider [phone] Allergies Active Allergy Reactions Criticality Noted Date [...] Abstract 12/07/2024 10:00 AM CDT Office Visit [facility] - [place] [address] [place] [id number] Bhanu Magdaleno MD Iron deficiency anemia due to chronic blood loss (Primary Dx) 12/05/2024 External Device Data STL ABSTRACTION Provider, Abstract 12/05/2024 Orders Only [facility] - [place] [address] [place] [id number] Bhanu Magdaleno MD 12/04/2024 External Device Data STL ABSTRACTION Provider, Abstract 12/04/2024 Orders Only [facility] - [place] [address] [place] [id number] Bhanu Magdaleno MD 12/01/2024 External Device Data [...] cm (5' 1 ) 12/02/2021 10:01 AM RADIOLOGIST Body Mass Index 22.56 12/02/2021 10:01 AM RADIOLOGIST Plan of Treatment Upcoming Encounters Date Type Department Care Team (Late st Contact Info) Description 03/14/2025 4:30 PM CDT Telephone Check Up [facility] [address] [facility] [address] [place] [address] Bhanu Magdaleno MD [address] [facility] [address] [place] [address] Health Maintenance Due Date Last Done Comments DTAP/TDAP/TD VACCINES (1 - Tdap) 2000 HEPATITIS B VACCINES (1 of 3 - 19+ 3-dose series) 2000 HPV/Cotest (21-29) 2002 CERVICAL CANCER SCREENING 2011 HPV/Cotest (30-65) 2011 PAP SMEAR 2011 BREAST CANCER SCREENING [...] Resu lt from Last 3 Months Insurance Care Teams Push Button Switch Assembler Relationship Specialty Start Date End Date Rc Grier MD PCP - General Family Practice 02/16/23
--- OUTSIDE RECORDS SUMMARY | 2025-02-05 07:56 | XMS_ITS | Clinical Summary ---
Author Organization [facility] Address [address] [place] [id number] Care Team Providers Care Supply Person Name Role Phone NatividadLuna EASEMENT WORKER Primary Care Provider [phone] Allergies Active Allergy Reactions Criticality Noted Date Comments Aspirin Swelling Low 08/09/2012 Codeine Itching,Swelling Low 08/09/2012 Ibuprofen Hives 12/12/2024 Latex Hives,Itching,Rash,Redness High 1 Medications Levonorgest-Eth Estradiol-Iron 0.1-20 MG-MCG(21) Tab Take by mouth. Activ e Cholecalciferol (VITAMIN D3) 50 MCG (2000 UT) Cap TAKE 1 CAPSULE EVERY DAY BY MOUTH WITH MEAL FOR 30 DAYS. (DISCONTINUE WEEKLY DOSE) 09/20/20 24 Active cyanocobalamin (B-12) 1000 MCG/ML injection INJECT 1 ML (1,000 MCG) BY INTRAMUSCULAR INJECTION EVERY 2 WEEKS Strength: 1,000 mcg/mL 08/09/20 24 Active ondansetron (ZOFRAN-ODT) 4 MG disintegrating tablet Take 1 tablet (4 mg total) by mouth every 8 (eight) hours as needed. 09/17/20 24 Active NURTEC 75 MG disintegrating tablet Take 1 tablet (75 mg total) by mouth daily as needed. 11/27/19 25 Active atorvastatin (LIPITOR) 40 MG tablet Take 1 tablet (40 mg total) by mouth daily. 11/10/19 25 Active propranolol LA (INDERAL LA) 60 MG 24 hr capsuleIndications :Migraine without aura and without status migrainosus, not intractable Take 1 capsule (60 mg total) by mouth daily. 30 capsule 2 12/13/19 25 Active cetirizine (ZYRTEC ALLERGY) 10 MG tablet Take 1 tablet (10 mg total) by mouth daily. 12/13/19 25 Active vitamin D2, ergocalciferol, (DRISDOL) 1.25 mg capsuleIndications :Vitamin D deficiency Take 1 capsule (50,000 Units total) by mouth every 14 (fourteen) days. 6 capsule 2 01/17/20 25 Active azelastine 0.1 % nasal sprayIndications:A llergic rhinitis, unspecified seasonality, unspecified trigger 2 sprays by Nasal route 2 (two) times daily as needed for Rhinitis. Use in each nostril as directed 10 mL 3 01/17/20 Active Hospital, Clinic, or Other Facility Administered Medication Ordered Dose Route Frequency Start Date End Date Status cyanocobalamin (B-12) injection 1,000 mcgIndications:B12 deficiency 1000 mcg IM Once 01/16/2025 01/16/2025 Ended cyanocobalamin (B-12) injection 1,000 mcgIndications:B12 deficiency 1000 mcg IM Once 01/30/2025 01/30/2025 Ended Active Problems Problem Noted Date Diagnosed Date Pernicious anemia 01/16/2025 B12 deficiency 01/16/2025 Allergic rhinitis, unspecifi ed seasonality, unspecified trigger 01/16/2025 Mixed hyperlipidemia 01/16/2025 Migraine without aura and wi thout status migrainosus, not intractable 01/16/2025 Encounters Date Type Department Care Team Description 01/30/2025 10:20 AM CDT Allied Health/Nurse Visit [place] [address] [facility] [address] [place] [address] Luna Henson NP Allied Health Visit 01/30/2025 Travel 01/19/2025 Scan HEALTH INFO SRVCS Scanned, [facility] 01/16/2025 9:00 AM CDT Office [facility] [place] [address] [facility] [address] [place] [address] Luna Henson NP Physical 01/16/2025 Travel 12/19/2024 Travel 12/12/2024 1:20 PM CDT Office Visit [place] [address] [place] [address] Luna Henson NP New Patient 12/12/2024 Travel [...] Reading Time Taken Comments Blood Pressure 106/71 01/16/2025 9:18 AM CDT Pulse 98 01/16/2025 9:18 AM CDT Temperature 36.3 C (97.3 F) 01/16/2025 9:18 AM CDT Respiratory Rate 16 01/16/2025 9:18 AM CDT Oxygen Saturation 99% 01/16/2025 9:18 AM CDT Inhaled Oxygen Concentration - - Weight 54.5 kg (120 lb 3.2 oz) 01/16/2025 9:18 A M CDT Height 152.4 cm (5') 01/16/2025 9:18 AM CDT Body Mass Index 23.47 01/16/2025 9:18 AM CDT Plan of Treatment Upcoming Encounters Date Type Department Care Team (Late st Contact Info) Description 02/13/2025 9:15 AM CDT Allied Health/Nurse Visit [facility] [place] [address] [place] [address] Luna Henson NP [address] [place] [address] 02/14/2025 9:40 AM CDT Office Visit [facility] [place] [address] [place] [address] Natividad Luna Brooke, EASEMENT WORKER [address] [facility] [address] [place] [address] Health Maintenance Due Date Last Done Comments [...] HPV 2011 Mammogram Screening 2021 COVID-19 Vaccine (2023-2 5 season) 2024 PHQ-2 ([facility]) Completed 12/12/2024 HPV Vaccines Aged Out No [...] 5 Years) and At-Risk Patients (6 to 49 Years) Aged Out No longer eligi ble based on patient's age to complete this topic RSV Immunizations Under 20 Months Aged Out No longer eligible based on patient's age to complete this topic Procedures Procedure Name Priority Date/Time Associated Diagnosis Comments URINALYSIS Routine 12/20/2024 7:27 AM CDT PARIETAL CELL ANTIBODY Routine 7:25 AM CDT INTRINSIC FACTOR ANTIBODY Routine 12/20/2024 7:25 AM CDT B12 deficiency CBC W/DIFF AUTOMATED Routine 12/20/2024 7:25 AM CDT Examination, medical, general COMPREHENSIVE METABOLIC PANEL Routine 12/20/2024 7:25 AM CDT Examination, medical, general LIPID PANEL Routine 12/20/2024 7:25 AM CDT Examination, medical, general TSH W/REFLEX Routine 12/20/2024 7:25 AM CDT Examination, medical, general VITAMIN D, 25 OH Routine 12/20/2024 7:25 AM CDT Examination, medical, general HEMOGLOBIN, GLYCOSYLATED Routine 12/20/2024 7:25 AM CDT Screening for diabetes mellitus from Last 3 Months Results * (ABNORMAL) URINALYSIS (12/20/2024 7:27 AM CDT) COLOR (U) YELLOW YELLOW [place] APPEARANCE SEMEN CLEAR CLEAR [place] SPECIFIC GRAVITY (U) 1.003 1.001 - 1.035 [place] PH (U) 8.0 5.0 - 8.0 [place] URINE GLUCOSE NEGATIVE NEGATIVE [place] KETONE (U) NEGATIVE NEGATIVE [place] BLOOD (U) 1+(A) NEGATIVE [place] PROTEIN (U) NEGATIVE NEGATIVE [place] 12/20/2024 7:27 AM CDT 12/20/2024 7:27 AM CDT Narrative [facility] [place] [facility] - 12/20/2024 8:39 PM CDT SPLIT 12/19/2024 FROM [id number] Resulting Agency Comment Performing Organization Information: Site ID: [id number] Name: [facility] Address: [address] [address] Director: Hayden Sears us Luna Henson NP URINE ORDERABLES Final Resu lt [facility] [place] [employer] [address], [place] * TSH W/REFLEX (12/20/2024 7:25 AM CDT) TSH 1.26 mIU/L [facility] Studios[place]ANSKA[place] Comment: Reference Range > or = 20 Years 0.40-4.50 Ranges First trimester 0.26-2.66 Second trimester 0.55-2.73 Third trimester 0.43-2.91 12/20/2024 7:25 AM CDT 12/20/2024 7:26 AM CDT Narrative [facility] [place] [facility] - 12/26/2024 3:11 AM CDT FASTING:YES COLLECTION KIT GIVEN TO PATIENT. PATIENT ADVISED TO RETURN. FASTING: YES Resulting Agency Comment Performing Organization Information: Site ID: [id number] Name: [facility] Address: [address] [place] [address] Director: Hayden Sears Authormiki Provider Result Type Result Stat Luna Henson EASEMENT WORKER LABORATORY Final Resul t [facility] [place] [facility] [address], * (ABNORMAL) PARIETAL CELL ANTIBODY (12/20/2024 7:25 AM CDT) PARIETAL CELL ANTIBODY 23.0(H) U [facility] Comment: Reference Range: <=20.0 NEGATIVE 20.1-24.9 EQUIVOCAL >=25.0 POSITIVE Anti-gastric parietal cell antibodies (Anti-GPA) were previously tested for by indirect immunofluorescence (IF) using mouse stomach as a substrate. Identification of the specific antibody target as H+/K+ ATPase protein (a gastric proton pump) has led to the development of an AZAEL based assay. Antibodies to this protein are present in approximately 80% of patients with pernicious anemia and a small percentage of the general adult population. The latter percentage increases with age and may reflect the presence of atrophic gastritis. A negative test does not exclude a diagnosis of pernicious anemia. A test for intrinsic factor blocking antibody (IFab) may provide serological evidence in support of the diagnosis in some of these patients. 12/20/2024 7:25 AM CDT 12/20/2024 7:26 AM CDT Narrative [facility] [place] [facility] - 12/26/2024 3:11 AM CDT FASTING:YES COLLECTION KIT GIVEN TO PATIENT. PATIENT ADVISED TO RETURN. FASTING: YES Resulting Agency Comment Performing Organization Information: Site ID: [id number] Name: [facility], Address: [address] [place] [address] Director: Pippa Ashby MD,PhD,NAOMI us Luna Henson NP LABORATORY Final Resul t [facility] [place] [facility] [employer] [place] [address] [address], * HEMOGLOBIN, GLYCOSYLATED (12/20/2024 7:25 AM CDT) HGB A1C 5.0 <5.7 % of total Hgb [facility] Comment: For the purpose of screening for the presence of diabetes: <5.7% Consistent with the absence of diabetes 5.7-6.4% Consistent with increased risk for diabetes (prediabetes) > or =6.5% Consistent with diabetes This assay result is consistent with a decreased risk of diabetes. Currently, no consensus exists regarding use of hemoglobin A1c for diagnosis of diabetes in children. According to [place] Diabetes Association (ADA) guidelines, hemoglobin A1c <7.0% represents optimal control in non- diabetic patients. Different metrics may apply to specific patient populations. Standards of Medical Care in Diabetes(ADA). 12/20/2024 7:25 AM CDT 12/20/2024 7:26 AM CDT Narrative [facility] [place] [facility] - 12/26/2024 3:11 AM CDT FASTING:YES COLLECTION KIT GIVEN TO PATIENT. PATIENT ADVISED TO RETURN. FASTING: YES Resulting Agency Comment Performing Organization Information: Site ID: [id number] Name: [facility] Address: [address] [place] [address] Director: Hayden Sears us Luna Henson NP LABORATORY Final Resul t [facility] [facility] [address] [place] [address], * COMPREHENSIVE METABOLIC PANEL (12/20/2024 7:25 AM CDT) GLUCOSE 97 65 - 99 mg/dL [place] Comment: Fasting reference interval BUN 10 7 - 25 mg/dL [place] CREATININE S/P/B 0.59 0.50 - 0.99 mg/dL [place] GFR ESTIMATE 115 > OR = 60 mL/min/1. 73m2 [place] BUN CREATININE RATIO SEE NOTE: 6 - 22 (calc) [place] Comment: Not Reported: BUN and Creatinine are within reference range. SODIUM S/P/B 137 135 - 146 mmol/L [place] POTASSIUM S/P/B 5.0 3.5 - 5.3 mmol/L [place] CHLORIDE S/P/B 102 98 - 110 mmol/L [place] CO2 28 20 - 32 mmol/L [place] CALCIUM S/P/B 9.9 8.6 - 10.2 mg/dL [place] TOTAL PROTEIN S/P/B 7.2 6.1 - 8.1 g/dL [place] ALBUMIN S/P/B 4.8 3.6 - 5.1 g/dL [place] GLOBULIN 2.4 1.9 - 3.7 g/dL (calc) [place] ALBUMIN/GLOBULIN RATIO 2.0 1.0 - 2.5 (calc) [place] BILIRUBIN TOTAL S/P/B 0.4 0.2 - 1.2 mg/dL [place] ALKALINE PHOSPHATASE S/P/B 39 31 - 125 U/L [place] AST 19 10 - 30 U/L [facility] [place] ALT 19 6 - 29 U/L [facility] [place] 12/20/2024 7:25 AM CDT 12/20/2024 7:26 AM CDT Narrative [facility] [place] [facility] - 12/26/2024 3:11 AM CDT FASTING:YES COLLECTION KIT GIVEN TO PATIENT. PATIENT ADVISED TO RETURN. FASTING: YES Resulting Agency Comment Performing Organization Information: Site ID: Name: [facility] Address: [facility] [place] [address] Director: Hayden Sears us Luna Henson NP LABORATORY Final Resul t [facility] [place] [facility] [address] [address], * (ABNORMAL) LIPID PANEL (12/20/2024 7:25 AM CDT) CHOLESTEROL 258(H) <200 mg/dL [place] HDL 57 > OR = 50 mg/dL [place] TRIGLYCERIDES 58 <150 mg/dL [facility] [place] LDL (CALCULATED) 186(H) mg/dL (calc) [place] Comment: Reference range: <100 Desirable range <100 mg/dL for primary prevention; <70 mg/dL for patients with CHD or diabetic patients with > or = 2 CHD risk factors. LDL-C is now calculated using the Elisabeth calculation, which is a validated novel method providing better accuracy than the Friedewald equation in the estimation of LDL-C. Steve MACKEY et al. [place]. 2013;310(19): 2987-2253 (http://education.nPario.Clinicbook/faq/RUN985) CHOL/HDL RATIO 4.5 <5.0 (calc) [place] NON HDL CHOLESTEROL 201(H) <130 mg/dL (calc) [place] Comment: For patients with diabetes plus 1 major ASCVD risk factor, treating to a non-HDL-C goal of <100 mg/dL (LDL-C of <70 mg/dL) is considered a therapeutic option. 12/20/2024 7:25 AM CDT 12/20/2024 7:26 AM CDT Narrative [facility] [place] [facility] - 12/26/2024 3:11 AM CDT FASTING:YES COLLECTION KIT GIVEN TO PATIENT. PATIENT ADVISED TO RETURN. FASTING: YES Resulting Agency Comment Performing Organization Information: Site ID: [id number] Name: [facility] Address: [facility] [place] [address] Director: Hayden Sears Luna Henson NP LABORATORY Final Resul t Performing Organization Address City/[facility]/ZIP Co de Phone Number [facility] [facility] [address], [place] * INTRINSIC FACTOR ANTIBODY (12/20/2024 7:25 AM CDT) INTRINSIC FACTOR BLOCK AB NEGATIVE [facility] Comment: Reference Range: ADULTS: NEGATIVE For additional information, please refere to http://education.Pictrition App/faq/IFAB (This link is being provided for informational/educational purposes only.) 12/20/2024 7:25 AM CDT 12/20/2024 7:26 AM CDT Narrative [facility] [place] [facility] - 12/26/2024 3:11 AM CDT FASTING:YES COLLECTION KIT GIVEN TO PATIENT. PATIENT ADVISED TO RETURN. FASTING: YES Resulting Agency Comment Performing Organization Information: Site ID: [id number] Name: [employer], Address: [address] [place] [address] Director: Pippa Ashby MD,PhD,NAOMI Luna Henson NP LABORATORY Final Resul t Performing Organization Address City/[facility]/ZIP Co de Phone Number [facility] [employer] [address], [place] * (ABNORMAL) CBC W/DIFF AUTOMATED (12/20/2024 7:25 AM CDT) WBC 4.7 3.8 - 10.8 Thousand/u L [place] RBC 4.77 3.80 - 5.10 Million/uL [place] HGB 15.7(H) 11.7 - 15.5 g/dL [place] HCT 48.5(H) 35.0 - 45.0 % [place] MCV 101.7(H) 80.0 - 100.0 fL [place] MCH 32.9 27.0 - 33.0 pg [place] MCHC 32.4 32.0 - 36.0 g/dL [place] Comment: For adults, a slight decrease in the calculated MCHC value (in the range of 30 to 32 g/dL) is most likely not clinically significant; however, it should be interpreted with caution in correlation with other red cell parameters and the patient's clinical condition. RDW 11.9 11.0 - 15.0 % [place] PLT 243 140 - 400 Thousand/u L [place] MPV 11.6 7.5 - 12.5 fL [place] ABS. NEUTROPHILS 2,110 1,500 - 7,800 cells/uL [place] ABS. LYMPHOCYTES 2,134 850 - 3,900 cells/uL [place] ABS. MONOCYTES 367 200 - 950 cells/uL [place] ABS. EOSINOPHILS 71 15 - 500 cells/uL [place] ABS. BASOPHILS 19 0 - 200 cells/uL [place] SEG NEUTROPHILS 44.9 % QUES [place] LYMPHOCYTES 45.4 % [place] MONOCYTES 7.8 % [place] EOSINOPHILS 1.5 % [place] BASOPHILS 0.4 % [place] 12/20/2024 7:25 AM CDT 12/20/2024 7:26 AM CDT Narrative [facility] [place] [facility] - 12/26/2024 3:11 AM CDT FASTING:YES COLLECTION KIT GIVEN TO PATIENT. PATIENT ADVISED TO RETURN. FASTING: YES Resulting Agency Comment Performing Organization Information: Site ID: [id number] Name: [facility] Address: [address] [place] [address] Director: Hayden Sears Luna Henson NP LABORATORY Final Resul t Performing Organization Address City/[facility] Co de Phone Number [facility] [place] [facility] [employer] [facility] [address], * (ABNORMAL) VITAMIN D, 25 OH (12/20/2024 7:25 AM CDT) VITAMIN D 25 HYDROXY TOTAL S/P/B 25(L) 30 - 100 ng/mL [facility] Comment: Vitamin D Status 25-OH Vitamin D: Deficiency: <20 ng/mL Insufficiency: 20 - 29 ng/mL Optimal: > or = 30 ng/mL For 25-OH Vitamin D testing on patients on D2-supplementation and patients for whom quantitation of D2 and D3 fractions is required, the QuestAssureD(TM) 25-OH VIT D, (D2,D3), LC/MS/MS is recommended: order code [id number] (patients >2yrs). See Note 1 Note 1 For additional information, please refer to http://education.SaleStream/faq/FTH738 (This link is being provided for informational/ educational purposes only.) 12/20/2024 7:25 AM CDT 12/20/2024 7:26 AM CDT Narrative [facility] [place] [facility] - 12/26/2024 3:11 AM CDT FASTING:YES COLLECTION KIT GIVEN TO PATIENT. PATIENT ADVISED TO RETURN. FASTING: YES Resulting Agency Comment Performing Organization Information: Site ID: [id number] Name: [facility] Address: [address] [address] Director: Hayden Sears MD Luna Henson NP LABORATORY Final Resul t [facility] [place] [facility] [id number] [place] [address], [place] from Last 3 Months Insurance [facility] [place] Care Teams Supply Person Relationship Specialty Start Date End Date Luna Henson, EASEMENT WORKER [address] [place] [address] PCP - General NURSE PRACTITIONER 12/03/24
--- OUTSIDE RECORDS SUMMARY | 2025-02-05 07:56 | XMS_ITS | Data Portability ---
Author Organization [facility], Main Office Address [address] [place] [address] Assessment No assessment recorded. Plan of Treatment Reminders Order Date Submit Date Provider Last Modified By Organization Details Last Modified Time Details Appointments None recorded. Lab None recorded. Referral None recorded. Procedures None recorded. Surgeries None recorded. Imaging None recorded. Medication Orders cyanocobala min (vit B-12) 1,000 mcg/mL injection solution [address] [facility]93054, [address] [place], [place], [id number], 5 12:01:26 Nurtec ODT 75 mg disintegrat ing tablet 2024 025 [facility] #96585, [address] [place], [place], [id number], 5 10:52:09 amoxicillin 875 mg-potassiu m clavulanate 125 mg tablet 2024 025 [facility] #41248, [address], [place], [id number], 5 10:53:45 fluconazole 150 mg tablet 2024 025 [facility] #59656, [address], [place], [id number], 5 10:54:37 cyanocobala min (vit B-12) 1,000 mcg/mL injection solution 2024 025 [email or web address] 4 Not available 5 12:56:55 cyanocobala min (vit B-12) 1,000 mcg/mL injection solution 2024 025 [email or web address] Not available 5 12:54:43 cyanocobala min (vit B-12) 1,000 mcg/mL injection solution 2024 025 [email or web address] 200 Not available 5 16:26:16 Patient TargetsNo targets recorded. Patient InstructionsNo instructions recorded. Reason for Referral None Reported. Results Created Date Observation Date Name Description Value Unit Range Abnormal Flag Note LastModifiedBy Organization Detail LastModifiedTime 12/20/1912/18/2024 chioi willy/james javed tic resul t No observ ation record ed. [address], [place], [address], 12/19/2024 14:50:25 Result Notes None recorded. Problems Name Problem SNOMED Code Status Onset Date Resolution Date Notes Provider Name and Address Organization Details Recorded Time Cobalamin deficiency 971030536 Active 2021 Not Available [facility] 3 04:20:42 Pain of joint of wrist 229482559 Active Not Available [facility] 3 04:20:42 Radial styloid tenosynovitis 69139857 Active Not Available [facility] 3 04:20:42 Vitamin B12 deficiency (non anemic) 11478210 Active 2021 Not Available [facility] 3 04:20:42 Acute sinusitis 07389896 Active 2022 Not Available [facility] 3 04:20:42 Hyperlipidemi a 02166169 Active 2022 Not Available [facility] 3 04:20:42 Seasonal allergic rhinitis 676879968 Active 2022 Not Available [facility] 3 04:20:42 Vitamin D deficiency 01255812 Active 2022 Not Available [facility] 3 04:20:42 Dyspnea 893856779 Active 2023 JULIETTE Stephen [address], [place], [address] , [employer] 4 11:58:46 Pharyngitis 270650299 Active 2023 JULIETTE Stephen [address], [address], [place], [address] , [employer] 4 12:38:20 Chronic idiopathic constipation 05523896 Active 2023 JULIETTE Stephen [address], [address], [place], [address] , [employer] 4 10:11:42 Constipation 15072367 Active 2023 Keysha Penn RN [facility], [place] [employer] 4 10:14:22 Contraception care Active 2023 JULIETTE Stephen [address], [place], [address] , [employer] 4 10:10:59 Irritable bowel syndrome characterized by constipation 127663866 Active 2023 JULIETTE Stephen [address], [address], [place], [address] , [employer] 4 21:05:52 Stomach ache 560436181 Active 2023 JULIETTE Stephen [address], [address], [place], [address] , [employer] 4 10:37:25 Screening mammography Active 2023 JULIETTE Stephen [address], [address], [place], [address] , [employer] 4 10:38:47 Adult health examination Active 2023 JULIETTE Stephen [address], [place], [address] , [employer] [facility] 4 10:50:50 Nausea 604978793 Active 2023 JULIETTE Stephen [address], [place], [address] , [facility] 4 15:07:54 Wheezing 24691731 Active 2023 JULIETTE Stephen [address], [place], [address] , [facility] [facility] 4 15:09:01 Migraine 81292382 Active 2024 JULIETTE Stephen [address], [place], [address] , [facility] [employer] [facility] [employer] [facility] 5 09:59:29 Serum vitamin B12 below reference range 298457029 Active 2024 JULIETTE Stephen [address], [place], [address] , [employer] [facility] [employer] [facility] 5 10:31:18 Acute left otitis media 901580260 Active 2024 JULIETTE Stephen [address], [place], [address] , [employer] [facility] [employer] [facility] 5 10:52:48 Problem Notes None recorded. Procedures Surgical History None recorded. Imaging Results Imaging Date Name Status LastModified by Organiz ation Details LastModified Time 12/18/2024 imaging/diagn ostic result active [place] [address] [facility] [address], [place], [address], 12/19/2024 14:50:25 Procedure Notes None recorded. Medical Equipment None Reported. Allergies Allergen ID Allergen Name Allergen Category Reaction Reaction Severity Criticality Documentation Date Start Date Code Code System Note Provider Name and Address Organization Details Recorded Time 50420 codeine medicatio n Not available Not available Not available 11/24/2022 2670 RxNorm Not Available [facility] 3 19:28:33 30224 aspirin medicatio n Not available Not available Not available 11/24/2022 1191 RxNorm Not Available [facility] 3 19:28:33 64022 latex environme nt,medica tion Not available Not available Not available 11/17/2023 55095 91 RxNorm JULIETTE Stephen [address], [facility] [address], [place], [address] , [facility] [employer] 4 12:37:58 Medications Name Sig Start Date [...] Not Available Not Available No t Available Nurte ODT 75 mg disintegra ting tablet DISSOLVE [...] and Address Organization Details Last Updated DateTime 5 154.94 cm 97.8 [degF] 16 /min 22.7 kg/m2 67725.1 6 g 78 /min 98 % 98 % 110 mm[Hg] 72 mm[Hg] Roro A[facility]adi [facility] 10:31:53 Social History Question Answer Notes LastModified by Organizat ion Details LastModified Time Tobacco Smoking Status Never Smoker Not Available [facility] 11/24/2022 19:26:51 What Is Your Level Of Caffeine Consumption? Occasional [email or web address] Information not available 02/01/2023 In The 14 Days Before Symptom Onset, Have You Had Close Contact With A Laboratory-confirm ed COVID-19 While That Case Was Ill? No [id number] Information not available 11/24/2022 In The 14 Days Before Symptom Onset, Have You Had Close Contact With A Person Who Is Under Investigation For COVID-19 While That Person Was Ill? No [id number] Information not available 11/24/2022 Do You Use Your Seat Belt Or Car Seat Routinely? Yes [email or web address] Information not available 02/01/2023 Do You Participate In Social Media? Yes [email or web address] Information not available 02/01/2023 Sex: Unknown Functional Status Question Answer Note LastModified by Organizat ion Details LastModified Time Do you use any illicit or recreational drugs? No Information not available 02/01/2023 What is your level of alcohol consumption? None [id number] Information not available 11/24/2022 Mental Status Question Answer Note LastModified by Organization D etails LastModified Time Do you feel stressed (tense, restless, nervous, or anxious, or unable to sleep at night)? IC2432-5 [email or web address] Information not available 02/01/2023 Family History Relationship Description Onset Age of this Age Resolved Age Notes LastModified by Organization Details LastModified Time Unspecified Relation Hypertensive disorder [id number] [id number] Not available 11/24/2022 19:26:52 Mother Hypothyroidi sm MIGRATION.240 [id number] Not available 11/24/2022 19:26:52 Mother Malignant tumor of breast MIGRATION.015 [id number] Not available 11/24/2022 19:26:52 Father Open heart surgery MIGRATION.968 [id number] Not available 11/24/2022 19:26:52 Maternal Aunt Malignant tumor of breast MIGRATION.773 [id number] Not available 11/24/2022 19:26:52 Maternal Aunt Malignant tumor of breast MIGRATION.774 [id number] Not available 11/24/2022 19:26:52 Paternal Aunt Malignant tumor of breast MIGRATION.757 [id number] Not available 11/24/2022 19:26:52 Medical History No medical history recorded. Gynecological HistoryNo gynecological history recorded. Obstetrics History GPAL:G 0 P 0 0 0 0 Past Encounters Encounter ID Performer Location Encounter Start Date Encounter Closed Date Diagnosis/Indication Diagnosis SNOMED-CT Code Diagnosis ICD10 Code Diagnosis Note [id number] Rc Grier MD [facility] [place] hernandez [address] [place] [id number] 03/03/2021 00:00:00 03/04/2021 06:06:56 [id number] Rc Grier MD [facility] Practice [place] hernandez [address] [place] [address] 05/13/2021 00:00:00 05/13/2021 15:06:21 [id number] Rc Grier MD [facility] Family [facility] [place] [address] [place] [address] 06/04/2021 00:00:00 06/04/2021 21:26:35 [id number] Rc Grier MD [facility] [place] [address] [place] [id number] 07/30/2021 00:00:00 07/30/2021 20:01:09 [id number] Rc Grier MD [facility] [place] [address] [place] [address] 08/05/2021 00:00:00 08/05/2021 19:54:41 [id number] Rc Grier MD [facility] [place] [address] [place] [address] 08/27/2021 00:00:00 08/27/2021 10:11:48 [id number] Rc Grier MD [facility] [place] [address] [place] [id number] 10/15/2021 00:00:00 10/15/2021 19:05:50 [id number] Rc Grier MD [facility] [place] [address] [place] [place] [id number] 12/08/2021 00:00:00 12/24/2021 10:36:21 [id number] Rc Grier MD [facility] [place] [address] [place] [address] 01/15/2022 00:00:00 01/15/2022 16:46:13 [id number] Rc Grier MD [facility] [place] [address] [place] [id number] 03/22/2022 00:00:00 03/26/2022 08:35:22 [id number] Rc Grier MD [facility] [place] [address] [place] [address] [place] [id number] 04/01/2022 00:00:00 04/22/2022 18:25:39 [id number] Rc Grier MD [facility] [place] [address] [place] [address] y , [place] [id number] 04/08/2022 00:00:00 04/08/2022 21:43:14 [id number] Rc Grier MD [facility] [place] [address] [place] [address] [place] [id number] 04/15/2022 00:00:00 04/15/2022 19:24:29 [id number] Rc Grier MD [facility] [place] [address] [place] [address] [place] [id number] 05/14/2022 00:00:00 05/14/2022 15:33:06 [id number] Rc Grier MD [facility] [place] [address] [place] [address] [place] [id number] 06/07/2022 00:00:00 06/07/2022 19:47:09 [id number] Rc Grier MD [facility] [place] [address] [place] [address] [place] [address] 06/17/2022 00:00:00 06/17/2022 21:20:04 [id number] Rc Grier MD [facility] [place] [address] [place] [address] [place] [id number] 08/02/2022 00:00:00 08/02/2022 12:35:54 [id number] Rc Grier MD [facility] [place] [address] [place] [address] [place] [id number] 09/01/2022 00:00:00 09/01/2022 19:41:01 [id number] Rc Grier MD [facility] [place] [address] [facility] [place] [id number] 10/26/2022 00:00:00 10/26/2022 19:17:45 [id number] Rc Grier MD [facility] [place] [address] [place] [address] [place] [id number] 02/01/2023 11:59:03 02/01/2023 12:40:52 Vitamin B12 deficiency (non anemic) 90055184 E53.8 Acute sinusitis 02998849 J01.90 [id number] Rc Grier MD [facility] [place] [address] [place] [address] [place] [id number] 02/07/2023 09:43:21 02/07/2023 10:35:46 Hyperlipidemia 87346728 E78.5 Acute sinusitis 69303369 J01.90 [id number] Rc Grier MD [facility] [place] [address] [place] [address] [place] [id number] 07/13/2023 09:52:49 07/13/2023 10:23:25 Adult health examination 116409647 Z00.00 Family his tory of diabetes mellitus type 2 474602045 Z83.3 Seasonal a llergic rhinitis 027242760 J30.2 Vitamin D deficiency 347 92244 E55.9 Screening for malignant neoplasm of breast 371852652 Z12.39 [id number] Rc Grier MD [facility] [place] [address] [place] [address] [place] [id number] 09/06/2023 14:12:02 10/13/2023 09:41:17 Cobalamin deficiency 241650991 E53.8 [id number] Rc Grier MD [facility] [place] [address] [place] [address] 09/27/2023 09:59:17 10/10/2023 11:28:05 Cobalamin deficiency 316492173 E53.8 [id number] Rc Grier MD [facility] [place] [address] [place] [address] 09/29/2023 11:36:49 09/29/2023 12:06:31 Seasonal allergic rhinitis 547201707 J30.2 Acute sinusitis 42555943 J01.90 Dyspnea 080271948 R06.00 Hyperlipidemia 35955204 E78.5 Vitamin D deficiency 347 05686 E55.9 [id number] Rc Grier MD [facility] [place] [address] [facility] [place] [address] 10/12/2023 09:58:04 10/12/2023 10:18:07 Acute sinusitis 24225605 J01.90 Seasonal a llergic rhinitis 308211642 J30.2 [id number] Rc Grier MD [facility] [place] [address] [place] [id number] 10/27/2023 09:40:07 11/09/2023 08:44:46 Vitamin B12 deficiency (non anemic) 37242746 E53.8 Cobalamin deficiency 190 290822 E53.8 [id number] Rc Grier MD [facility] [place] [address] [facility] [place] [id number] 11/10/2023 09:56:36 11/10/2023 10:02:31 Cobalamin deficiency 648308314 E53.8 [id number] Rc Grier MD [facility] [place] [address] [place] [address] 11/17/2023 12:24:20 11/17/2023 12:42:51 Pharyngitis 461538460 J02.9 Hyperlipidemia 20308586 E78.5 Seasonal a llergic rhinitis 374361871 J30.2 Vitamin B1 2 deficiency (non anemic) 63237354 E53.8 Vitamin D deficiency 347 11591 E55.9 [id number] Rc Grier MD [facility] [place] [address] [place] [address] 11/24/2023 09:57:06 12/01/2023 09:52:23 Cobalamin deficiency 967636281 E53.8 [id number] Rc Grier MD [facility] [place] [address] [place] [address] 09/12/2023 10:16:34 09/12/2023 10:27:22 Cobalamin deficiency 504403034 E53.8 [id number] Rc Grier MD [facility] [place] [address] [place] [address] 12/08/2023 10:02:31 12/23/2023 11:47:12 Cobalamin deficiency 017132188 E53.8 [id number] Rc Grier MD [facility] [place] [address] [place] [address] 12/22/2023 10:02:55 01/03/2024 13:32:22 Cobalamin deficiency 792354912 E53.8 [id number] Yair Cook MD [facility] [place] [address] [place] [address] 01/05/2024 10:00:29 01/13/2024 12:02:03 Vitamin B12 deficiency (non anemic) 01654146 E53.8 [id number] Yair Cook MD [facility] [place] [address] [place] [address] 02/29/2024 10:07:04 02/29/2024 10:43:43 Vitamin B12 deficiency (non anemic) 47646755 E53.8 Hyperlipidemia 87476388 E78.5 Vitamin D deficiency 347 01409 E55.9 Cobalamin deficiency 190 677825 E53.8 Seasonal a llergic rhinitis 536579196 J30.2 Irritable bowel syndrome characterized by constipation 537860324 K58.1 Chronic id iopathic constipation 86072919 K59.04 samples Linzess 290 mcg #24 on 01/19/24 [id number] Yair Cook MD [facility] [place] [address] [facility] [place] [address] 01/19/2024 10:08:35 01/27/2024 11:34:10 Vitamin B12 deficiency (non anemic) 69666091 E53.8 [id number] Yair Cook MD [facility] [place] [address] [facility] [place] [address] 02/02/2024 09:59:18 02/27/2024 11:18:14 Vitamin B12 deficiency (non anemic) 25283190 E53.8 [id number] Yair Cook MD [facility] [place] [address] [facility] [place] [address] 02/16/2024 09:57:27 02/27/2024 11:53:22 Vitamin B12 deficiency (non anemic) 60393102 E53.8 [id number] Yair Cook MD [facility] [place] [address] [facility] [place] [address] 03/21/2024 09:47:59 03/26/2024 13:32:47 Vitamin B12 deficiency (non anemic) 95951687 E53.8 [id number] Yair Cook MD [facility] [id number]||2025-02-06 07:38:00|MR_ITS|WISOTSKYB|Imaging|[id number]|"MRI of the pelvis Clinical history right lower quadrant pain TECHNIQUE: Axial T2-weighted and T2 fat-sat images, and axial T1-weighted in and out of phase images were performed. Coronal T2-weighted and T2 fat-sat images were performed. Following intravenous admin istration of 11 cc MultiHance gadolinium, T1-weighted fat-sat imaging was performed in the axial and coronal planes. COMPARISON: CT scan dated 12/18/2024 FINDINGS: Urinary bladder unremarkable. No adnexal mass seen. No ascites. Prominent parametrial veins are again present, as seen on prior CT. Visualized bowel loops appear unremarkable. No acute inflammatory process evident. No soft tissue mas s or fluid collection seen. Visualized osseous structures appear intact. IMPRESSION: Prominent parametrial veins are again present, as on prior CT. Correlate for pelvic congestion syndro me. No other significant findings. Reviewed, dictated and finalized at [facility]. IMPRESSION: Prominent parametrial veins are again present, as on prior CT. Correlate for pe lvic congestion syndrome. No other significant findings. "
--- OUTSIDE RECORDS SUMMARY | 2025-02-05 07:56 | XMS_ITS | Encounter Summary ---
Author Organization [facility] Address [address] [place] [address] Care Team Providers Care Coding Assistant Name Role Phone Luna Henson MELTER HELPER Primary Care Provider [phone] Reason for Visit * Reason Comments Allied Health Visit Encounter Details Date Type Department Care Team (Latest Contact Info) Description 01/30/2025 10:20 AM CDT Allied Health/Nurse Visit [facility] [place] [address] [place] [address] Luna Henson, MELTER HELPER [address] [place] [address] Allied Health Visit Social History Tobacco Use Types Packs/Day Years Used Date Smoking Tobacco: Never Passive Smoke Exposure: Never Smokeless Tobacco: Never Alcohol Use Standard [...] Orientation Straight 12/12/2024 1: 49 PM CDT documented as of this encounter Progress Notes * Tia Irizarry MA - 01/30/2025 10:20 AM CDT Patient present for B12 injection documented in this encounter Plan of Treatment Upcoming Encounters Date Type Department Care Team (Late st Contact Info) Description 02/13/2025 9:15 AM CDT Allied Health/Nurse Visit [facility] Medical [facility] Multispecialty [facility] [place] [address] [facility] [address] [place] [address] Luna Henson MELTER HELPER [address] [facility] [address] [place] [address] 02/14/2025 9:40 AM CDT [facility] [place] [address] [facility] [address] [place] [address] Luna Henson NP [address] [facility] [address] [place] [address] documented as of this encounter Visit Diagnoses Diagnosis B12 deficiency- Primary Other B-complex deficiencies documented in this encounter Administered Medications Inactive Administered Medications - up to 3 most recent administrations Medication Order MAR Action Action Date Dose Rate Site cyanocobalamin (B-12) injection 1,000 mcg 1,000 mcg, Intramuscular, Once, 1 dose, On Tue01/30/25 at 1145Indications:B12 deficiency Given 01/30/2025 11:17 AM CDT 1,000 mcg Left Deltoid documented in this encounter Care Teams Coding Assistant Relationship Specialty Start Date End Date Luna Henson NP [address] [facility] [address] [place] [address] PCP - General NURSE PRACTITIONER 12/03/24 documented as of this encounter
== END 2025-02-05 07:50 | disposition home or self-care (01) ==
PROVIDERS: PCP Nurse Practitioner; Visit Provider Surgery
DX: R10.31 Right lower quadrant pain (principal); Z87.19 Personal history of other diseases of the digestive system; Z98.890 Other specified postprocedural states
CPT/HCPCS: 72197; A9577

== ENCOUNTER 2025-03-04 09:15 | Outpatient (CLI) | payer BC, SELFPAY ==
--- OUTSIDE RECORDS SUMMARY | 2025-03-04 09:55 | XMS_ITS | Data Portability ---
Author Organization [facility] [employer], Main Office Address [address] [place] [address] Assessment No assessment recorded. Plan of Treatment Reminders Order Date Submit Date Provider Last Modified By Organization Details Last Modified Time Details Appointments None recorded. Lab None recorded. Referral None recorded. Procedures None recorded. Surgeries None recorded. Imaging None recorded. Medication Orders cyanocobala min (vit B-12) 1,000 mcg/mL injection solution [address] [facility], [address] [place], [place], [id number], 5 12:01:26 Nurtec ODT 75 mg disintegrat ing tablet 2024 025 [facility]502, [address] [place], [place], [id number], 5 10:52:09 amoxicillin 875 mg-potassiu m clavulanate 125 mg tablet 2024 025 [facility] #33964, [address] [place], [place], [id number], 5 10:53:45 fluconazole 150 mg tablet 2024 025 [facility]63434, [address] [place], [place], [id number], 5 10:54:37 cyanocobala min (vit B-12) 1,000 mcg/mL injection solution 2024 025 [email or web address] Not available 5 12:56:55 cyanocobala min (vit B-12) 1,000 mcg/mL injection solution 2024 025 [email or web address] Not available 5 12:54:43 cyanocobala min (vit B-12) 1,000 mcg/mL injection solution 2024 025 [email or web address] 200 Not available 5 16:26:16 Patient TargetsNo targets recorded. Patient InstructionsNo instructions recorded. Reason for Referral None Reported. Results Created Date Observation Date Name Description Value Unit Range Abnormal Flag Note LastModifiedBy Organization Detail LastModifiedTime 12/20/1912/18/2024 jennifer aguilera/james javed tic resul t No observ ation record ed. [address], [place], [address], 12/19/2024 14:50:25 Result Notes None recorded. Problems Name Problem SNOMED Code Status Onset Date Resolution Date Notes Provider Name and Address Organization Details Recorded Time Cobalamin deficiency 642511322 Active 2021 Not Available [facility] 3 04:20:42 Pain of joint of wrist 407358419 Active Not Available [facility] 3 04:20:42 Radial styloid tenosynovitis 97670374 Active Not Available [facility] 3 04:20:42 Vitamin B12 deficiency (non anemic) 33473148 Active 2021 Not Available [facility] 3 04:20:42 Acute sinusitis 97125011 Active 2022 Not Available [facility] 3 04:20:42 Hyperlipidemi a 47947667 Active 2022 Not Available [facility] 3 04:20:42 Seasonal allergic rhinitis 404673803 Active 2022 Not Available [facility] 3 04:20:42 Vitamin D deficiency 59100794 Active 2022 Not Available [facility] 3 04:20:42 Dyspnea 147116151 Active 2023 JULIETTE Stephen [address], [address], [place], [address] , [employer] 4 11:58:46 Pharyngitis 963701179 Active 2023 JULIETTE Stephen [address], [address], [place], [address] , [employer] 4 12:38:20 Chronic idiopathic constipation 03209280 Active 2023 JULIETTE Stephen [address], [address], [place], [address] , [employer] 4 10:11:42 Constipation 02424602 Active 2023 Keysha Penn RN null, [employer] 4 10:14:22 Contraception care Active 2023 JULIETTE Stephen [address], [address], [place], [address] , [employer] 4 10:10:59 Irritable bowel syndrome characterized by constipation 711593483 Active 2023 JULIETTE Stephen [address], [address], [place], [address] , [employer] 4 21:05:52 Stomach ache 046752706 Active 2023 JULIETTE Stephen [address], [address], [place], [address] , [employer] 4 10:37:25 Screening mammography Active 2023 JULIETTE Stephen [address], [address], [place], [address] , [employer] 4 10:38:47 Adult health examination Active 2023 JULIETTE Stephen [address], [address], [place], [address] , [employer] 4 10:50:50 Nausea 068407415 Active 2023 JULIETTE Stephen [address], [address], [place], [address] , [employer] 4 15:07:54 Wheezing 50595028 Active 2023 JULIETTE Stephen [address], [address], [place], [address] , [employer] 4 15:09:01 Migraine 25836208 Active 2024 JULIETTE Stephen [address], [address], [place], [address] , [employer] 5 09:59:29 Serum vitamin B12 below reference range 366087465 Active 2024 JULIETTE Stephen [address], [address], [place], [address] , [employer] 5 10:31:18 Acute left otitis media 826204946 Active 2024 JULIETTE Stephen [address] [facility], [address], [place], [address] , [employer] 5 10:52:48 Problem Notes None recorded. Medical Equipment None Reported. Allergies Allergen ID Allergen Name Allergen Category Reaction Reaction Severity Criticality Documentation Date Start Date Code Code System Note Provider Name and Address Organization Details Recorded Time 90789 codeine medicatio n Not available Not available Not available 11/24/2022 2670 RxNorm Not Available [facility] 3 19:28:33 88878 aspirin medicatio n Not available Not available Not available 11/24/2022 1191 RxNorm Not Available [facility] 3 19:28:33 77064 latex environme nt,medica tion Not available Not available Not available 11/17/2023 14625 91 RxNorm JULIETTE Stephen [address], [address], [place], [address], [email or web address] 4 12:37:58 Medications Name Sig Start Date [...] Not Available Not Available No t Available [facility] ODT 75 mg disintegra ting tablet DISSOLVE [...] cm 97.8 [degF] 16 /min 22.7 kg/m2 78288.1 6 g 78 /min 98 % 98 % 110 mm[Hg] 72 mm[Hg] Roro Ahmadi [place] [facility] [employer] 5 10:31:53 Social History Question Answer Notes LastModified by [employer] Details LastModified Time Tobacco Smoking Status Never Smoker Not Available [employer] 11/24/2022 19:26:51 What Is Your Level Of Caffeine Consumption? Occasional [email or web address] Information not available 02/01/2023 In The 14 Days Before Symptom Onset, Have You Had Close Contact With A Laboratory-confirm ed COVID-19 While That Case Was Ill? No [id number] Information not available 11/24/2022 In The 14 Days Before Symptom Onset, Have You Had Close Contact With A Person Who Is Under Investigation For COVID-19 While That Person Was Ill? No [id number] Information not available 11/24/2022 Do You Use Your Seat Belt Or Car Seat Routinely? Yes [email or web address] Information not available 02/01/2023 Do You Participate In Social Media? Yes [email or web address] Information not available 02/01/2023 Sex: Unknown Functional Status Question Answer Note LastModified by [employer] Details LastModified Time Do you use any illicit or recreational drugs? No [email or web address] Information not available 02/01/2023 What is your level of alcohol consumption? None [id number] Information not available 11/24/2022 Mental Status Question Answer Note LastModified by Organization D etails LastModified Time Do you feel stressed (tense, restless, nervous, or anxious, or unable to sleep at night)? [id number] Information not available 02/01/2023 Family History Relationship Description Onset Age of this Age Resolved Age Notes LastModified by Organization Details LastModified Time Unspecified Relation Hypertensive disorder MIGRATION.030 [id number] Not available 11/24/2022 19:26:52 Mother Hypothyroidi sm MIGRATION.644 [id number] Not available 11/24/2022 19:26:52 Mother Malignant tumor of breast MIGRATION.396 7460494 Not available 11/24/2022 19:26:52 Father Open heart surgery MIGRATION.031 1371329 Not available 11/24/2022 19:26:52 Maternal Aunt Malignant tumor of breast MIGRATION.172 3657066 Not available 11/24/2022 19:26:52 Maternal Aunt Malignant tumor of breast MIGRATION.941 [id number] Not available 11/24/2022 19:26:52 Paternal Aunt Malignant tumor of breast MIGRATION.013 [id number] Not available 11/24/2022 19:26:52 Medical History No medical history recorded. Gynecological HistoryNo gynecological history recorded. Obstetrics History GPAL:G 0 P 0 0 0 0 Past Encounters Encounter ID Performer Location Encounter Start Date Encounter Closed Date Diagnosis/Indication Diagnosis SNOMED-CT Code Diagnosis ICD10 Code Diagnosis Note [id number] Rc Grier MD [facility] Armin hernandez [address] [place] [address] [place] [address] 03/03/2021 00:00:00 03/04/2021 06:06:56 [id number] Rc Grier MD [facility] Armin hernandez [address] [place] [address] [place] [address] 05/13/2021 00:00:00 05/13/2021 15:06:21 [id number] Rc Grier MD [facility] Armin hernandez [address] [place] [address] [place] [address] 06/04/2021 00:00:00 06/04/2021 21:26:35 [id number] Rc Grier MD [facility] [place] [address] , [place] [address] 07/30/2021 00:00:00 07/30/2021 20:01:09 [id number] Rc Grier MD [facility] [place] [address] , [place] [address] 08/05/2021 00:00:00 08/05/2021 19:54:41 [id number] Rc Grier MD [facility] [place] [address] , [place] [address] 08/27/2021 00:00:00 08/27/2021 10:11:48 [id number] Rc Grier MD [facility] [place] [address] , [place] [address] 10/15/2021 00:00:00 10/15/2021 19:05:50 [id number] Rc Grier MD [facility] [place] [address] , [place] [address] 12/08/2021 00:00:00 12/24/2021 10:36:21 [id number] Rc Grier MD [facility] [place] [address] , [place] [address] 01/15/2022 00:00:00 01/15/2022 16:46:13 [id number] Rc Grier MD [facility] [place] [address] [place] [address] 03/22/2022 00:00:00 03/26/2022 08:35:22 [id number] Rc Grier MD [facility] [place] [address] [place] [place] [address] 04/01/2022 00:00:00 04/22/2022 18:25:39 [id number] Rc Grier MD [facility] [place] [address] [place] [address] 04/08/2022 00:00:00 04/08/2022 21:43:14 [id number] Rc Grier MD [facility] [place] [address] [place] [address] 04/15/2022 00:00:00 04/15/2022 19:24:29 [id number] Rc Grier MD [facility] [place] [address] [place] [address] 05/14/2022 00:00:00 05/14/2022 15:33:06 [id number] Rc Grier MD [facility] [place] [address] [place] [place] [address] 06/07/2022 00:00:00 06/07/2022 19:47:09 [id number] Rc Grier MD [facility] [place] [address] [place] [address] 06/17/2022 00:00:00 06/17/2022 21:20:04 [id number] Rc Grier MD [facility] [place] [address] [place] [address] 08/02/2022 00:00:00 08/02/2022 12:35:54 [id number] Rc Grier MD [facility] [place] [address] [place] [address] 09/01/2022 00:00:00 09/01/2022 19:41:01 [id number] Rc Grier MD [facility] [place] [address] [place] [place] [address] 10/26/2022 00:00:00 10/26/2022 19:17:45 [id number] Rc Grier MD [facility] [place] [address] [facility] [place] [address] 02/01/2023 11:59:03 02/01/2023 12:40:52 Vitamin B12 deficiency (non anemic) 78059347 E53.8 Acute sinusitis 36435117 J01.90 [id number] Rc Grier MD [facility] [place] [address] [place] [address] [place] [address] 02/07/2023 09:43:21 02/07/2023 10:35:46 Hyperlipidemia 75370008 E78.5 Acute sinusitis 43126929 J01.90 [id number] Rc Grier MD [facility] [place] [address] [place] [address] [place] [address] 07/13/2023 09:52:49 07/13/2023 10:23:25 Adult health examination 119567860 Z00.00 Family his tory of diabetes mellitus type 2 532853662 Z83.3 Seasonal a llergic rhinitis 524754200 J30.2 Vitamin D deficiency 347 83383 E55.9 Screening for malignant neoplasm of breast 700286461 Z12.39 [id number] Rc Grier MD [facility] [place] [address] [place] [address] [place] [address] 09/06/2023 14:12:02 10/13/2023 09:41:17 Cobalamin deficiency 513082525 E53.8 [id number] Rc Grier MD [facility] [place] [address] [place] [address] [place] [address] 09/27/2023 09:59:17 10/10/2023 11:28:05 Cobalamin deficiency 084034710 E53.8 [id number] Rc Grier MD [facility] [place] [address] [facility] [place] [address] 09/29/2023 11:36:49 09/29/2023 12:06:31 Seasonal allergic rhinitis 287651179 J30.2 Acute sinusitis 67521468 J01.90 Dyspnea 490744615 R06.00 Hyperlipidemia 11780253 E78.5 Vitamin D deficiency 347 14082 E55.9 [id number] Rc Grier MD [facility] [place] [address] [place] [address] [place] [address] 10/12/2023 09:58:04 10/12/2023 10:18:07 Acute sinusitis 07749787 J01.90 Seasonal a llergic rhinitis 113256910 J30.2 [id number] Rc Grier MD [facility] [place] [address] [place] [address] [place] [address] 10/27/2023 09:40:07 11/09/2023 08:44:46 Vitamin B12 deficiency (non anemic) 67026131 E53.8 Cobalamin deficiency 190 152039 E53.8 [id number] Rc Grier MD [facility] [place] [address] [place] [address] [place] [address] 11/10/2023 09:56:36 11/10/2023 10:02:31 Cobalamin deficiency 903533162 E53.8 [id number] Rc Grier MD [facility] [place] [address] [place] [address] [place] [address] 11/17/2023 12:24:20 11/17/2023 12:42:51 Pharyngitis 282105074 J02.9 Hyperlipidemia 39512982 E78.5 Seasonal a llergic rhinitis 551172161 J30.2 Vitamin B1 2 deficiency (non anemic) 78334469 E53.8 Vitamin D deficiency 347 39422 E55.9 [id number] Rc Grier MD [facility] [place] [address] [place] [address] [place] [address] 11/24/2023 09:57:06 12/01/2023 09:52:23 Cobalamin deficiency 745645639 E53.8 [id number] Rc Grier MD [facility] [place] [address] [place] [address] 09/12/2023 10:16:34 09/12/2023 10:27:22 Cobalamin deficiency 656060936 E53.8 [id number] Rc Grier MD [facility] [place] [address] [facility] [place] [address] 12/08/2023 10:02:31 12/23/2023 11:47:12 Cobalamin deficiency 761724085 E53.8 [id number] Rc Grier MD [facility] [place] [address] [place] [address] 12/22/2023 10:02:55 01/03/2024 13:32:22 Cobalamin deficiency 152932340 E53.8 [id number] Yair Cook MD [facility] [place] [address] [place] [address] [place] [address] 01/05/2024 10:00:29 01/13/2024 12:02:03 Vitamin B12 deficiency (non anemic) 35307754 E53.8 [id number] Yair Cook MD [facility] [place] [address] [facility] [place] [address] 02/29/2024 10:07:04 02/29/2024 10:43:43 Vitamin B12 deficiency (non anemic) 06875993 E53.8 Hyperlipidemia 17276086 E78.5 Vitamin D deficiency 347 42196 E55.9 Cobalamin deficiency 190 687782 E53.8 Seasonal a llergic rhinitis 532516133 J30.2 Irritable bowel syndrome characterized by constipation 397002220 K58.1 Chronic id iopathic constipation 75851299 K59.04 samples [employer] [address] [facility] on 01/19/24 [id number] Yair Cook MD [facility] [place] [address] [place] [address] 01/19/2024 10:08:35 01/27/2024 11:34:10 Vitamin B12 deficiency (non anemic) 91980455 E53.8 [id number] Yair Cook MD [facility] [place] [address] [facility] [place] [address] 02/02/2024 09:59:18 02/27/2024 11:18:14 Vitamin B12 deficiency (non anemic) 44037191 E53.8 [id number] Yair Cook MD [facility] [place] [address] [facility] [place] [address] 02/16/2024 09:57:27 02/27/2024 11:53:22 Vitamin B12 deficiency (non anemic) 91580946 E53.8 [id number] Yair Cook MD [facility] [place] [address] [place] [address] [place] [address] 03/21/2024 09:47:59 03/26/2024 13:32:47 Vitamin B12 deficiency (non anemic) 69361914 E53.8 [id number] Yair Cook MD [facility] [place] [address] [place] [address] [place] [address] 04/04/2024 09:22:25 04/04/2024 14:10:53 Cobalamin deficiency 429215645 E53.8 Vitamin B1 2 deficiency (non anemic) 62257436 E53.8 [id number] Yair Cook MD [facility] [place] [address] [place] [address] 04/25/2024 10:03:05 05/04/2024 11:51:32 Vitamin B12 deficiency (non anemic) 10912032 E53.8 [id number] Yair Cook MD [facility] [place] [address] [place] [address] 05/09/2024 10:08:45 05/18/2024 11:53:37 Vitamin B12 deficiency (non anemic) 75367900 E53.8 [id number] Yair Cook MD [facility] [place] [address] [facility] [place] [address] 05/23/2024 10:00:23 05/29/2024 10:11:04 Vitamin B12 deficiency (non anemic) 93639555 E53.8 [id number] Yair Cook MD [facility] [place] [address] [facility] [place] [address] 06/06/2024 10:06:49 06/25/2024 15:18:42 Vitamin B12 deficiency (non anemic) 26430054 E53.8 [id number] Yair Cook MD [facility] [place] [address] [facility] [place] [address] 06/20/2024 10:20:08 07/09/2024 13:35:55 Vitamin B12 deficiency (non anemic) 66920443 E53.8 [id number] Yair Cook MD [facility] [place] [address] [facility] [place] [address] 07/04/2024 09:57:27 07/25/2024 15:07:44 Vitamin B12 deficiency (non anemic) 66166741 E53.8 [id number] Yair Cook MD [facility] [place] [address] [facility] [place] [address] 07/18/2024 09:59:19 07/18/2024 10:44:27 Vitamin B12 deficiency (non anemic) 47164959 E53.8 Stomach ache 852579155 R 10.9 from atorvastat in 40 mg Screening mammography 24 637204 Z12.31 Pharyngitis 358532173 J0 2.9 Adult heal th examination 717357850 Z00.00 [id number] Yair Cook MD [facility] [place] [address] [facility] [place] [address] 2024 10:04:35 08/27/2024 09:11:49 Vitamin B12 deficiency (non anemic) 70633424 E53.8 [id number] Yair Cook MD [facility] [place] [address] [facility] [place] [address] 08/15/2024 09:58:43 09/04/2024 09:56:40 Vitamin B12 deficiency (non anemic) 61944973 E53.8 [id number] Yair Cook MD [address] [address] 08/29/2024 10:16:36 08/30/2024 08:06:54 Vitamin B12 deficiency (non anemic) 78590357 E53.8 [id number] Yair Cook MD [address] [address] 09/12/2024 10:16:26 09/12/2024 10:22:25 Vitamin B12 deficiency (non anemic) 51249859 E53.8 [id number] Yair Cook MD [address] [address] 09/27/2024 12:35:26 09/27/2024 15:15:57 Vitamin B12 deficiency (non anemic) 22868736 E53.8 [id number] Yair Cook MD [address] [address] 10/18/2024 10:22:55 10/18/2024 14:43:27 Vitamin B12 deficiency (non anemic) 14441759 E53.8 [id number] Yair Cook MD [address] [address] 11/01/2024 10:12:33 11/01/2024 10:39:06 Cobalamin deficiency 927615827 E53.8 Vitamin B1 2 deficiency (non anemic) 38932696 E53.8 [id number] Yair Cook MD [address] [address] 11/26/2024 10:13:45 11/26/2024 11:00:38 Migraine 32594615 G43.909 Acute left otitis media 820528202 H66.92 Acute sinusitis 33486476 J01.90 Serum isai min B12 below reference range 373446418 R79.89 Seasonal a llergic rhinitis 391948118 J30.2 Vitamin D deficiency 347 25130 E55.9 Vitamin B1 2 deficiency (non anemic) 82774150 E53.8 [id number] Yair Cook MD [address] [address] 12/10/2024 10:14:23 12/10/2024 11:20:41 Serum vitamin B12 below reference range 929001604 R79.89 Health Concerns Section Related Observation LastModified by Organization Detai ls LastModified Time None Recorded Concern Status LastModified by Organization Details LastModified Time None Recorded Advance Directives Directive None Recorded Payers Encounter Date Sequence Insurance Name Policy Number Policy Arana Covered Member ID Arana Member ID Guarantor Name 09/27/2024 2 [facility] ON OR AFTER 03/26/21 (MEDICAID REPLACEMENT - HMO) Eri Yanni [id number] [facility] 09/27/2024 1 [place] [id number] Adriana Liao [id number] 10/18/2024 2 [facility] ON OR AFTER 03/26/21 (MEDICAID REPLACEMENT - HMO) Eri Liao [id number] [facility] 10/18/2024 1 [place] [id number] Adriana Liao [id number] Eri Liao 11/01/2024 2 [facility] ON OR AFTER 03/26/21 (MEDICAID REPLACEMENT - HMO) Eri Liao [id number] Eri Liao 11/01/2024 1 [place] [id number] Tarbreanna Castilloara [id number] Eri Liao 11/26/2024 1 [place] [id number] Tarek Yanni [id number] 337 [address] 12/10/2024 1 [place] [id number] Tarek Yanni [id number] 337 Eri Liao Notes Date Note Type Note Provider Name and Address Organization Details Recorded Time 11/26/2024 text/html cannot tolerate sumatriptan , nor relpax EdJULIETTE Morrissey [address] [place] [address], [place] [address], [place], [address], [place] [employer] [facility] 12/01/2024 11:40:08 OBGyn Episode No OBEpisode recorded.
--- OUTSIDE RECORDS SUMMARY | 2025-03-04 09:55 | XMS_ITS | Clinical Summary ---
Author Organization [facility] Address [address] [place] [address] Care Team Providers Care Customer Support Specialist Name Role Phone Rc Grier MD Primary Care Provider [phone] Allergies Active Allergy Reactions Criticality Noted Date [...] Encounters Date Type Department Care Team Description 02/26/2025 External Device Data STL ABSTRACTION Provider, Abstract 02/19/2025 External Device Data ST[facility] ABSTRACTION Provider, Abstract 02/13/2025 External Device Data ST[facility] ABSTRACTION Provider, Abstract 02/12/2025 External Device Data ST[facility] ABSTRACTION Provider, Abstract 12/12/2024 External Device Data ST[facility] ABSTRACTION Provider, Abstract 12/07/2024 10:00 AM CDT Office Visit [facility] Oncology and Hematology [facility] [address] [place] [address] Bhanu Magdaleno MD Iron deficiency anemia due to chronic blood loss (Primary Dx) 12/05/2024 External Device Data STL ABSTRACTION Provider, Abstract 12/05/2024 Orders Only [facility] Oncology and Hematology - [place] [address] [place] [address] Bhanu Magdaleno MD 12/04/2024 External Device Data STL ABSTRACTION Provider, Abstract 12/04/2024 Orders Only [facility] Oncology and Hematology - [place] [address] [place] [address] Bhanu Magdaleno MD from Last 3 Months Family History Medical [...] A M CDT Height 154.9 cm (5' 1) 12/02/2021 10: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 [address] [facility] [address] [place] [address] Bhanu Magdaleno MD [address] [facility] [address] [place] [address] Health Maintenance Due Date Last [...] from Last 3 Months Insurance Care Teams Customer Support Specialist Relationship Specialty Start Date End Date Rc Grier MD PCP - General Family Practice 02/16/23
[2025-03-04 10:13] LABS: Hematocrit 45.4 % (37.0-47.0); Hemoglobin 14.5 g/dL (12.0-15.0)
== END 2025-03-04 09:16 | disposition home or self-care (01) ==
LOC: ANHLAB 09:16
PROVIDERS: PCP Nurse Practitioner; Visit Provider Anesthesiology
DX: D50.8 Other iron deficiency anemias (principal); K40.90 Unilateral inguinal hernia, without obstruction or gangrene, not specified as recurrent
CPT/HCPCS: 36415; 85014; 85018; 86850; 86900; 86901

== ENCOUNTER 2025-03-05 09:07 | Outpatient (CLI) | payer BC, SELFPAY ==
[2025-03-05 09:24] LABS: Hematocrit 43.9 % (37.0-47.0); Hemoglobin 14.6 g/dL (12.0-15.0); Mean Corpuscular HGB Conc 33.3 g/dl (32-36); Mean Corpuscular Hemoglobin 32.4 pg (26-34); Mean Corpuscular Volume 97.6 fl (80-100); Mean Platelet Volume 10.2 fl (7.4-10.4); Platelet Count Result 215 k/mm3 (150-375); Red Cell Distribution Width 11.9 % (11.5-14.5); White Blood Count 5.3 K/mm3 (4.5-10.0)
--- OUTSIDE RECORDS SUMMARY | 2025-03-05 09:35 | XMS_ITS | Clinical Summary ---
Author Organization [facility] Address [address] [place] [address] Care Team Providers Care System Analyst Name Role Phone Rc Grier MD Primary Care Provider [phone] Allergies Active Allergy Reactions Criticality Noted Date [...] Abstract 12/07/2024 10:00 AM CDT Office Visit [facility] Oncology and Hematology [facility] [address] [place] [address] Bhanu Magdaleno MD Iron deficiency anemia due to chronic blood loss (Primary Dx) 12/05/2024 External Device Data STL ABSTRACTION Provider, Abstract 12/05/2024 Orders Only [facility] Oncology and Hematology - [place] [address] [place] [address] Bhanu Magdaleno MD 12/04/2024 External Device Data STL ABSTRACTION Provider, Abstract 12/04/2024 Orders Only [facility] Oncology and Hematology - [place] [address] [place] [address] Bhanu Magdaleno MD from Last 3 Months [...] 154.9 cm (5' 1) 12/02/2021 10: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 Body Mass Index 22.56 12/02/2021 10: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 Plan of Treatment Upcoming Encounters Date Type Department Care Team (Late st Contact Info) Description 03/14/2025 4:30 PM CDT Telephone Check Up [facility] Oncology and Hematology [facility] [address] [facility] [address] [place] [address] Bhanu Magdaleno MD [address] [facility] [address] [place] [address] Health Maintenance Due Date Last Done Comments DTAP/TDAP/TD VACCINES (1 - Tdap) 2000 HEPATITIS B VACCINES (1 of 3 - 19+ 3-dose series) 2000 HPV/Cotest (21-29) 2002 CERVICAL CANCER SCREENING 2011 HPV/Cotest (30-65) 2011 PAP SMEAR 2011 BREAST CANCER SCREENING 2021 INFLUENZA VACCINE (#1) 2024 Preventative Visit- Commercial 09/26/2024 07/18/2024, 07/13/2023, 08/09/2012 HPV VACCINES Aged Out [...] Resu lt from Last 3 Months Insurance [employer] BLUE PREFERRED Care Teams System Analyst Relationship Specialty Start Date End Date Rc Grier MD PCP - General Family Practice 02/16/23
[2025-03-05 11:55] LABS: Iron 154 ug/dL (37-170)
[2025-03-05 12:05] LABS: Percent Iron Saturation 56 % (20-50)
== END 2025-03-05 09:08 | disposition home or self-care (01) ==
PROVIDERS: PCP Nurse Practitioner; Visit Provider Internal Medicine Hematology & Oncology
DX: D50.0 Iron deficiency anemia secondary to blood loss (chronic) (principal)
CPT/HCPCS: 36415; 82728; 83540; 83550; 85027

== ENCOUNTER 2025-03-12 02:54 | Day surgery (SDC) | payer BC, SELFPAY ==
[2025-03-01 11:16] VITALS: BMI 23.4
--- NOTE | 2025-03-01 11:17 | PC.NURSE ---
Report to the Outpatient Waiting Room, entrance under the green pavilion located off [facility], at time _0600_ on date _[id number]_. Planned Procedure Time: _0730_.? Time changes happen often and if your time is changed the preop area will call you the afternoon before. - You and your visitor will be asked to self-screen and do not enter if you have any COVID symptoms. Please call surgeon if you need to reschedule. - A mask is optional within the hospital at this time. Patients may have clear liquids (water, carbonated beverages, clear teas, apple juice) until 3 hours prior to surgery with a maximum of 20 ounces. - No food from midnight until time of surgery and no smoking, or chewing tobacco (or any form of nicotine). No chewing gum, candy or mints. Take only the following medications with a SIP of water on the morning of surgery: ___Birth control pill____ DO NOT STOP ANY OF YOUR OTHER PRESCRIPTION MEDICATIONS PRIOR TO SURGERY EXCEPT THE FOLLOWING Hold all vitamins and supplements for 3 days per anesthesiologist. Medications to discontinue per physician Date to take last [id number]__24-26-2426___ Please no make-up, nail sinhala, hairspray, perfume, deodorant, or body powder the day of surgery.? No jewelry (including any body piercings) or valuables the day of surgery, leave them at home.? Please take a shower or bath the night before, or the morning of, surgery with an antibacterial soap.? Wear comfortable, loose fitting clothing.? - Jewelry must be removed prior to entering the operating room.? Rings and piercings that are not removed may be cut off. - The hospital will not accept responsibility for valuables.? - Please leave all valuables, including medications, at home the day of surgery. If you are going home after surgery, a licensed shuttle bus driver must drive you home.? - NO public transportation without another adult if you receive anesthesia. - We recommend that an adult stay with you for 24 hours following discharge. - We also recommend that you do not drive, make important decision, drink alcoholic beverages, or take any drugs that were not prescribed by your health care provider for at least 24 hours after your discharge time. Follow any additional instructions given to you from your surgeon. Telephone instructions given to __Deena__and asked if any additional questions and then verbalized understanding. Patient advised to call surgeon office or pre surgery nurse liaison [phone] if any additional questions.
[2025-03-12] VITALS (8 sets, daily range): BP systolic 93–120; BP diastolic 38–58; PULSE 51–78; RESP 16–18; TEMP 36.1–36.3; O2SAT 100; BMI 23.9
--- OUTSIDE RECORDS SUMMARY | 2025-03-12 03:21 | XMS_ITS | Encounter Summary ---
Author Organization [facility] Address [address] [place] [address] Care Team Providers Care Automation Application Engineer Name Role Phone Luna Henson NP Primary Care Provider [phone] Encounter Details Date Type Department Care Team (Late st Contact Info) Description 02/14/2025 MyChart Message Enc [facility] Medical [facility] Multispec[facility]ty [place] [facility] [place] [address] [place] [address] Luna Henson NP [address] [place], [place] [id number] Mri Social History Tobacco Use Types Packs/Day Years [...] PM CDT documented as of this encounter Plan of Treatment Upcoming Encounters Date Type Department Care Team (Late st Contact Info) Description 03/19/2025 10:40 AM CDT Allied Health/Nurse Visit [facility] [place] [address] [place] [address] Luna Henson NP [address] [place] [address] 06/19/2025 9:40 AM CDT Office Visit [facility] Mult[facility] - [place] [address] [place] [address] Luna Henson NP [address] [facility] [address] [place] [address] documented as of this encounter Visit Diagnoses Not on filedocumented in this encounter Care Teams Automation Application Engineer Relationship Specialty Start Date End Date Luna Henson NP [address] [facility] [address] [place] [address] PCP - General NURSE PRACTITIONER 12/03/24 documented as of this encounter
--- OUTSIDE RECORDS SUMMARY | 2025-03-12 03:21 | XMS_ITS | Encounter Summary ---
Author Organization [facility] Address [id number] [place] [address] Care Team Providers Care Hospital Receptionist Name Role Phone Rc Grier MD Primary Care Provider [phone] Encounter Details Date Type Department Care Team (Late Contact Info) Description 03/06/2025 Orders Only [facility] Oncology and Hematology - [place] [address] [place] [address] Bhanu Magdaleno MD [address] [place] [address] Social History Tobacco Use Types Packs/Day Years [...] 03/14/2025 4:30 PM CDT Telephone Check Up [facility] Oncology and Hematology - [place] [address] [place] [address] Bhanu Magdaleno MD [address] [place] [address] documented as of this encounter Procedures Procedure Name Priority Date/Time Associated Diagnosis Comments IRON, TIBC, AND PERCENT SATURATION Routine 03/05/2025 10:01 AM CDT documented in this encounter Results * IRON, TIBC, AND PERCENT SATURATION (03/05/2025 10:01 AM CDT) Blood Bhanu Magdaleno MD CHEMISTRY ORDERABLES Final Resu lt documented in this encounter Visit Diagnoses Not on filedocumented in this encounter Care Teams Hospital Receptionist Relationship Specialty Start Date End Date Rc Grier MD PCP - General Family Practice 02/16/23 documented as of this encounter
--- OUTSIDE RECORDS SUMMARY | 2025-03-12 03:21 | XMS_ITS | Clinical Summary ---
Author Organization [facility] Address [address] [place] [address] Care Team Providers Care Gis Specialist Name Role Phone NatividadLuna LIQUID COMPOUNDER Primary Care Provider [phone] Allergies Active Allergy Reactions Criticality Noted Date [...] 14 (fourteen) days. 6 capsule 2 01/17/20 Active azelastine 0.1 % nasal sprayIndications:A llergic rhinitis, unspecified seasonality, unspecified trigger 2 sprays by Nasal route 2 (two) times daily as needed for Rhinitis. Use in each nostril as directed 10 mL 3 01/17/20 Active Additional Information Patient not taking.Reported on 02/14/2025 Hospital, Clinic, or Other Facility Administered Medication Ordered Dose Route Frequency Start Date End Date Status cyanocobalamin (B-12) injection 1,000 mcgIndications:B12 deficiency 1000 mcg IM Once 02/13/2025 02/13/2025 Ended cyanocobalamin (B-12) injection 1,000 mcgIndications:B12 deficiency 1000 mcg IM Once 03/06/2025 03/06/2025 Ended Active Problems Problem Noted Date Diagnosed Date Vitamin D deficiency 02/14/2025 Right groin pain 02/14/2025 Pelvic congestion syndrome 02/14/2025 Pernicious anemia 01/16/2025 B12 deficiency 01/16/2025 Allergic rhinitis, unspecifi ed seasonality, unspecified trigger 01/16/2025 Mixed hyperlipidemia 01/16/2025 Migraine without aura and wi thout status migrainosus, not intractable 01/16/2025 Encounters Date Type Department Care Team Description 03/06/2025 10:20 AM CDT [facility] [address] [place] [address] Luna Henson, RONDA Allied Health Visit 03/06/2025 Travel 02/14/2025 9:40 AM CDT [facility] [address] [place] [address] Luna Henson, LIQUID COMPOUNDER Physical 02/14/2025 Telephone [facility] [place] [address] [facility] [address] [place] [address] Luna Henson, LIQUID COMPOUNDER Record Request 02/14/2025 MyChart Message Enc [place] [address] [place] [address] Luna Henson, RONDA Mri 02/14/2025 Travel 02/13/2025 9:15 AM CDT Allied Health/Nurse Visit [place] [address] [address] [facility] [address] [place] [address] Luna Henson, LIQUID COMPOUNDER B12 Deficient 02/13/2025 Travel 02/05/2025 Scan [facility] Scanned, [facility] MRI (SCAN) 01/30/2025 10:20 AM CDT Allied Health/Nurse Visit [place] [address] [address] [facility] [address] [place] [address] Luna Henson LIQUID COMPOUNDER Allied Health Visit 01/30/2025 Travel 01/19/2025 Scan [facility] Scanned, [facility] 01/16/2025 9:00 AM CDT Office [facility] [place] [address] [facility] [address] [place] [address] Luna Henson, RONDA Physical 01/16/2025 Travel 12/19/2024 Travel 12/12/2024 1:20 PM CDT Office [facility] [place] [address] [facility] [address] [place] [address] Luna Henson, LIQUID COMPOUNDER New Patient 12/12/2024 Travel from Last 3 Months Family History Medical History Relation Comments Heart Attack Father Hyperlipidemia Father Hypertension Father Hyperlipidemia Mother Hypothyroidism Mother prediabetes Mother Breast Cancer Paternal Aunt Relation Status Comments Father Mother Paternal Aunt Social History Tobacco Use Types Packs/Day Years Used Date Smoking Tobacco: Never Passive Smoke Exposure: Never Smokeless Tobacco: Never Tobacco Cessation:Counseling Given: Yes Alcohol Use Standard Drinks/Week Comments Never 0 [...] Sign Reading Time Taken Comments Blood Pressure 95/64 02/14/2025 9:41 AM CDT Pulse 70 02/14/2025 9:41 AM CDT Temperature 35.8 C (96.5 F) 02/14/2025 9:41 AM CDT Respiratory Rate 14 02/14/2025 9:41 AM CDT Oxygen Saturation 99% 02/14/2025 9:41 AM CDT Inhaled Oxygen Concentration - - Weight 54.5 kg (120 lb 1.6 oz) 02/14/2025 9:41 A M CDT Height 152.4 cm (5') 02/14/2025 9:41 AM CDT Body Mass Index 23.46 02/14/2025 9:41 AM CDT Plan of Treatment Upcoming Encounters Date Type Department Care Team (Late st Contact Info) Description 03/19/2025 10:40 AM CDT Allied Health/Nurse Visit [facility] [place] [address] [address] [place] [address] Luna Henson NP [address] [facility] [address] [place] [address] 06/19/2025 9:40 AM CDT Office Visit [facility] - [address] [place] [address] Luna Henson, RONDA [address] [facility] [address] [place] [address] Health Maintenance Due Date Last Done Comments Cervical Cancer Screening Pa p Smear (Age 30 to 64) Every 3 Years 1981 Hepatitis C 1999 DTaP, Tdap and Td Vaccines ( 1 - Tdap) 2000 Hepatitis B Vaccines (1 of 3 - 19+ 3-dose series) 2000 Mammogram Screening 2021 COVID-19 Vaccine (1 - 2023-2 5 season) 2024 Annual Physical 02/14/2026 02/14/2025 Cervical Cancer Screening Pa p with HPV Testing (Age 30 to 64) Every 5 Years 08/07/2029 08/07/2024 Cervical Cancer Screening with HPV 08/07/2029 PHQ-2 (Physician [place]) Completed 12/12/2024 HPV Vaccines Aged Out No [...] Procedure Name Priority Date/Time Associated Diagnosis Comments MRI GENERIC 02/05/2025 MRI GENERIC 02/05/2025 URINALYSIS Routine 12/20/2024 7:27 AM CDT PARIETAL [...] 7:25 AM CDT Screening for diabetes mellitus OUTSIDE CYTOPATH CERV/VAG INTERPRET (PAP) 08/07/2024 from Last 3 Months or Most Recently Relevant to Health Maintenance Results * MRI GENERIC (02/05/2025) Only the most recent of2 resultswithin the time period is included. Anatomical Region Laterality Modality Other 02/05/2025 us [facility] Scanned SCANNING Final Resu lt * (ABNORMAL) URINALYSIS (12/20/2024 7:27 AM CDT) COLOR (U) YELLOW YELLOW [place] APPEARANCE SEMEN CLEAR CLEAR [place] SPECIFIC GRAVITY (U) 1.003 1.001 - 1.035 [place] PH (U) 8.0 5.0 - 8.0 [facility] URINE GLUCOSE NEGATIVE NEGATIVE [place] KETONE (U) NEGATIVE NEGATIVE [place] BLOOD (U) 1+(A) NEGATIVE [place] PROTEIN (U) NEGATIVE NEGATIVE [place] 12/20/2024 7:27 AM CDT 12/20/2024 7:27 AM CDT Narrative [facility] [place] - 12/20/2024 8:39 PM CDT SPLIT 12/19/2024 FROM [id number] Resulting Agency Comment Performing Organization Information: Site ID: [place] Name: [facility] Address: [address] [place] [address] Director: Hayden Sears us Luna Henson NP URINE ORDERABLES Final Resu lt [facility] [place] [employer] [facility] [facility] [address], * TSH W/REFLEX (12/20/2024 7:25 AM CDT) TSH 1.26 mIU/L [facility] Comment: Reference Range > or = 20 Years 0.40-4.50 Ranges First trimester 0.26-2.66 Second trimester 0.55-2.73 Third trimester 0.43-2.91 12/20/2024 7:25 AM CDT 12/20/2024 7:26 AM CDT Narrative [facility] [place] - 12/26/2024 3:11 AM CDT FASTING:YES COLLECTION KIT GIVEN TO PATIENT. PATIENT ADVISED TO RETURN. FASTING: YES Resulting Agency Comment Performing Organization Information: Site ID: Name: [facility] Address: [address] [place] [address] Director: Hayden Sears Luna Henson NP LABORATORY Final Resul t Performing Organization Address [facility] Co de Phone Number [facility] [place] [employer] [address], * (ABNORMAL) PARIETAL CELL ANTIBODY (12/20/2024 7:25 AM CDT) PARIETAL CELL ANTIBODY 23.0(H) U [facility] [place] [facility] Comment: Reference Range: <=20.0 NEGATIVE 20.1-24.9 [...] Performing Organization Information: Site ID: EZ Name: [facility], Address: [address] [place] [phone] Director: Pippa Ashby MD,PhD,NAOMI us Luna Henson NP LABORATORY Final Resul t [facility] [place] [employer] [facility] [facility] [place] [address] [address], * HEMOGLOBIN, GLYCOSYLATED (12/20/2024 7:25 AM CDT) HGB A1C 5.0 <5.7 % of total Hgb [facility] Comment: For the purpose of screening for the presence of diabetes: <5.7% Consistent with the absence of diabetes 5.7-6.4% Consistent with increased risk for diabetes (prediabetes) > or =6.5% Consistent with diabetes This assay result is consistent with a decreased risk of diabetes. Currently, no consensus exists regarding use of hemoglobin A1c for diagnosis of diabetes in children. According to Stateless Diabetes Association (ADA) guidelines, hemoglobin A1c <7.0% [...] Performing Organization Information: Site ID: [place] Name: [facility] Address: [address] [place] [address] Director: Hayden Sears Luna Henson NP LABORATORY Final Resul t SANDY Tuttle [place] [address] [place] [address], * COMPREHENSIVE METABOLIC PANEL (12/20/2024 7:25 AM CDT) Pathologist [facility] GLUCOSE 97 65 - 99 mg/dL [place] Comment: Fasting reference interval BUN 10 7 - 25 mg/dL [place] CREATININE S/P/B 0.59 0.50 - 0.99 mg/dL [place] GFR ESTIMATE 115 > OR = 60 mL/min/1. 73m2 [place] BUN CREATININE RATIO SEE NOTE: 6 - 22 (calc) [place] Comment: Not Reported: BUN and Creatinine are within reference range. SODIUM S/P/B 137 135 - 146 mmol/L [place] POTASSIUM S/P/B 5.0 3.5 - 5.3 mmol/L [place] CHLORIDE S/P/B 102 98 - 110 mmol/L [place] CO2 28 20 - 32 mmol/L [place] CALCIUM S/P/B 9.9 8.6 - 10.2 mg/dL [place] TOTAL PROTEIN S/P/B 7.2 6.1 - 8.1 g/dL [place] ALBUMIN S/P/B 4.8 3.6 - 5.1 g/dL [place] GLOBULIN 2.4 1.9 - 3.7 g/dL (calc) [place] ALBUMIN/GLOBULIN RATIO 2.0 1.0 - 2.5 (calc) [place] BILIRUBIN TOTAL S/P/B 0.4 0.2 - 1.2 mg/dL [place] ALKALINE PHOSPHATASE S/P/B 39 31 - 125 U/L [place] AST 19 10 - 30 U/L [facility] ALT 19 6 - 29 U/L [facility] 12/20/2024 7:25 AM CDT 12/20/2024 7:26 AM CDT Narrative [facility] [place] - 12/26/2024 3:11 AM CDT FASTING:YES COLLECTION KIT GIVEN TO PATIENT. PATIENT ADVISED TO RETURN. FASTING: YES Resulting Agency Comment Performing Organization Information: Site ID: [place] Name: [facility] Address: [facility] [place] [address] Director: Hayden Sears us Luna Henson NP LABORATORY Final Resul t [facility] - [place], [place] [address] [place] [address], * (ABNORMAL) LIPID PANEL (12/20/2024 7:25 AM CDT) [facility] Signature CHOLESTEROL 258(H) <200 mg/dL [place] HDL 57 > OR = 50 mg/dL [place] TRIGLYCERIDES 58 <150 mg/dL [place] LDL (CALCULATED) 186(H) mg/dL (calc) [place] Comment: Reference range: <100 Desirable range <100 mg/dL for primary prevention; <70 mg/dL for patients with CHD or diabetic patients with > or = 2 CHD risk factors. LDL-C is now calculated using the Elisabeth calculation, which is a validated novel method providing better accuracy than the Friedewald equation in the estimation of LDL-C. Steve MACKEY et al. [place]. 2013;310(19): 8410-8081 (http://education.i.am.plus electronics/faq/WKM919) CHOL/HDL RATIO 4.5 <5.0 (calc) [place] NON HDL CHOLESTEROL 201(H) <130 mg/dL (calc) [place] Comment: For patients with diabetes plus [...] Performing Organization Information: Site ID: [place] Name: [facility] Address: [address] [place] [address] Director: Hayden Sears Luna Henson NP LABORATORY Final Resul t Performing Organization Address City/[facility]/ZIP Co de Phone Number [employer] - [place] [employer] [address], [place] * INTRINSIC FACTOR ANTIBODY (12/20/2024 7:25 AM CDT) INTRINSIC FACTOR BLOCK AB NEGATIVE [employer] [facility] Comment: Reference Range: ADULTS: NEGATIVE For additional information, please refere to http://education.WhipCar/faq/IFAB (This link is being provided for informational/educational purposes only.) 12/20/2024 7:25 AM CDT 12/20/2024 7:26 AM CDT Narrative [facility] [place] [facility] - 12/26/2024 3:11 AM CDT FASTING:YES COLLECTION KIT GIVEN TO PATIENT. PATIENT ADVISED TO RETURN. FASTING: YES Resulting Agency Comment Performing Organization Information: Site ID: EZ Name: [facility], Address: [address] [place] [address] Director: Pippa Ashby MD,PhD,NAOMI Luna Henson NP LABORATORY Final Resul t Performing Organization Address City/[facility]/ZIP Co de Phone Number [facility] - [place] [employer] [address], * (ABNORMAL) CBC W/DIFF AUTOMATED (12/20/2024 7:25 AM CDT) Pathologist [facility] WBC 4.7 3.8 - 10.8 Thousand/u L [place] RBC 4.77 3.80 - 5.10 Million/uL [place] HGB 15.7(H) 11.7 - 15.5 g/dL [place] HCT 48.5(H) 35.0 - 45.0 % [place] MCV 101.7(H) 80.0 - 100.0 fL [place] MCH 32.9 27.0 - 33.0 pg [place] MCHC 32.4 32.0 - 36.0 g/dL [place] Comment: For adults, a slight decrease in the calculated MCHC value (in the range of 30 to 32 g/dL) is most likely not clinically significant; however, it should be interpreted with caution in correlation with other red cell parameters and the patient's clinical condition. RDW 11.9 11.0 - 15.0 % [place] PLT 243 140 - 400 Thousand/u L [place] MPV 11.6 7.5 - 12.5 fL [place] ABS. NEUTROPHILS 2,110 1,500 - 7,800 cells/uL [place] ABS. LYMPHOCYTES 2,134 850 - 3,900 cells/uL [place] ABS. MONOCYTES 367 200 - 950 cells/uL [place] ABS. EOSINOPHILS 71 15 - 500 cells/uL [place] ABS. BASOPHILS 19 0 - 200 cells/uL [place] SEG NEUTROPHILS 44.9 % [facility] LYMPHOCYTES 45.4 % [place] MONOCYTES 7.8 % [place] EOSINOPHILS 1.5 % [place] BASOPHILS 0.4 % [place] 12/20/2024 7:25 AM CDT 12/20/2024 7:26 AM CDT Narrative [facility] [place] [facility] - 12/26/2024 3:11 AM CDT FASTING:YES COLLECTION KIT GIVEN TO PATIENT. PATIENT ADVISED TO RETURN. FASTING: YES Resulting Agency Comment Performing Organization Information: Site ID: [place] Name: [facility] Address: [address] [place] [address] Director: Hayden Sears Luna Henson NP LABORATORY Final Resul t [facility] [place] [facility] [id number] [place] [address], [place] * (ABNORMAL) VITAMIN D, 25 OH (12/20/2024 7:25 AM CDT) VITAMIN D 25 HYDROXY TOTAL S/P/B 25(L) 30 - 100 ng/mL [employer] [facility] Comment: Vitamin D Status 25-OH Vitamin D: Deficiency: <20 ng/mL Insufficiency: 20 - 29 ng/mL Optimal: > or = 30 ng/mL For 25-OH Vitamin D testing on patients on D2-supplementation and patients for whom quantitation of D2 and D3 fractions is required, the QuestAssureD(TM) 25-OH VIT D, (D2,D3), LC/MS/MS is recommended: order code 14500 (patients >2yrs). See Note 1 Note 1 For additional information, please refer to http://education.Lala.GoNetYourself/faq/HNU611 (This link is being provided for informational/ educational purposes only.) 12/20/2024 7:25 AM CDT 12/20/2024 7:26 AM CDT Narrative [facility] [place] [facility] - 12/26/2024 3:11 AM CDT FASTING:YES COLLECTION KIT GIVEN TO PATIENT. PATIENT ADVISED TO RETURN. FASTING: YES Resulting Agency Comment Performing Organization Information: Site ID: [place] Name: [facility] Address: [address] [address] Director: Hadyen Sears MD Luna Henson NP LABORATORY Final Resul t [facility] [place] [facility] [address] [place] [address], * PAP SMEAR WITH HPV (08/07/2024) 08/07/2024 us [facility] Scanned SCANNING Final Resu lt from Last 3 Months or Most Recently Relevant to Health Maintenance Insurance [facility] Care Teams Gis Specialist Relationship Specialty Start Date End Date Luna Henson, RONDA [address] [place] [address] PCP - General NURSE PRACTITIONER 12/03/24
--- OUTSIDE RECORDS SUMMARY | 2025-03-12 03:21 | XMS_ITS | Clinical Summary ---
Author Organization [facility] Address [address] [place] [address] Care Team Providers Care Strategic Sourcing Manager Name Role Phone Rc Grier MD Primary Care Provider [phone] Allergies Active Allergy Reactions Criticality Noted Date [...] Date Type Department Care Team Description 03/06/2025 Orders Only [facility] Oncology and Hematology - [place] [address] [place] [address] Bhanu Magdaleno MD 03/05/2025 Orders Only [facility] Oncology and Hematology - [place] [address] [place] [address] Bhanu Magdaleno MD 02/26/2025 External Device Data STL ABSTRACTION Provider, [...] 154.9 cm (5' 1) 12/02/2021 10:01 AM HOSPITAL CNA Body Mass Index 22.56 12/02/2021 10:01 AM HOSPITAL CNA Plan of Treatment Upcoming Encounters Date Type Department Care Team (Late st Contact Info) Description 03/14/2025 4:30 PM CDT Telephone Check Up [facility] Oncology and Hematology - [place] [address] [place] [address] Bhanu Magdaleno MD [address] [facility] [address] [place] [address] Health Maintenance Due Date Last [...] Diagnosis Comments CBC WITH AUTODIFFERENTIAL Routine 2024 1:16 PM CDT IRON, TIBC, AND PERCENT SATURATION Routine 03/05/2025 10:01 AM CDT from Last 3 Months Results * CBC WITH AUTODIFFERENTIAL (03/05/2025 1:16 PM CDT) Blood Bhanu Magdaleno MD HEMATOLOGY ORDERABLES Final Res ult * IRON, TIBC, AND PERCENT SATURATION (03/05/2025 10:01 AM CDT) Blood us Bhanu Magdaleno MD CHEMISTRY ORDERABLES Final Resu lt from Last 3 Months Insurance [employer] BLUE PREFERRED Care Teams Strategic Sourcing Manager Relationship Specialty Start Date End Date cR Grier MD PCP - General Family Practice 02/16/23
--- OUTSIDE RECORDS SUMMARY | 2025-03-12 03:21 | XMS_ITS | Data Portability ---
Author Organization [facility] [employer], Main Office Address [address] [place] [address] Assessment No assessment recorded. Plan of Treatment Reminders Order Date Submit Date Provider Last Modified By Organization Details Last Modified Time Details Appointments None recorded. Lab None recorded. Referral None recorded. Procedures None recorded. Surgeries None recorded. Imaging None recorded. Medication Orders cyanocobala min (vit B-12) 1,000 mcg/mL injection solution [address] [facility]952, [address] [place], [place], [id number], 5 12:01:26 Nurtec ODT 75 mg disintegrat ing tablet 2024 025 [facility] #64334, [address] [place], [place], [id number], 5 10:52:09 amoxicillin 875 mg-potassiu m clavulanate 125 mg tablet 2024 025 [facility] #66529, [address] [place], [place], [id number], 5 10:53:45 fluconazole 150 mg tablet 2024 025 [facility] #51354, [address] [place], [place], [id number], 5 10:54:37 cyanocobala min (vit B-12) 1,000 mcg/mL injection solution 2024 025 [email or web address] 4 Not available 5 12:56:55 cyanocobala min (vit B-12) 1,000 mcg/mL injection solution 2024 025 [email or web address] Not available 5 12:54:43 cyanocobala min (vit B-12) 1,000 mcg/mL injection solution 2024 025 [email or web address] 200 Not available 5 16:26:16 Patient TargetsNo targets recorded. Patient InstructionsNo instructions recorded. Reason for Referral None Reported. Results Created Date Observation Date Name Description Value Unit Range Abnormal Flag Note LastModifiedBy Organization Detail LastModifiedTime 12/20/1912/18/2024 jennifer aguilera/james javed tic resul t No observ ation record ed. [address], [place], [address], 12/19/2024 14:50:25 Result Notes None recorded. Problems Name Problem SNOMED Code Status Onset Date Resolution Date Notes Provider Name and Address Organization Details Recorded Time Cobalamin deficiency 969019046 Active 2021 Not Available [facility] 3 04:20:42 Pain of joint of wrist 962691652 Active Not Available [facility] 3 04:20:42 Radial styloid tenosynovitis 00206817 Active Not Available [facility] 3 04:20:42 Vitamin B12 deficiency (non anemic) 98066924 Active 2021 Not Available [facility] 3 04:20:42 Acute sinusitis 94032668 Active 2022 Not Available [facility] 3 04:20:42 Hyperlipidemi a 46345402 Active 2022 Not Available [facility] 3 04:20:42 Seasonal allergic rhinitis 857656800 Active 2022 Not Available [facility] 3 04:20:42 Vitamin D deficiency 35849083 Active 2022 Not Available [facility] 3 04:20:42 Dyspnea 112767416 Active 2023 JULIETTE Stephen [address], [address], [place], [address] , [employer] 4 11:58:46 Pharyngitis 106602198 Active 2023 JULIETTE Stephen [address], [address], [place], [address] , [employer] 4 12:38:20 Chronic idiopathic constipation 24743715 Active 2023 JULIETTE Stephen [address], [address], [place], [address] , [employer] 4 10:11:42 Constipation 46625489 Active 2023 Keysha Penn RN null, [employer] 4 10:14:22 Contraception care Active 2023 JULIETTE Stephen [address], [address], [place], [address] , [employer] 4 10:10:59 Irritable bowel syndrome characterized by constipation 107490706 Active 2023 JULIETTE Stephen [address], [address], [place], [address] , [employer] 4 21:05:52 Stomach ache 504501593 Active 2023 JULIETTE Stephen [address], [address], [place], [address] , [employer] 4 10:37:25 Screening mammography Active 2023 JULIETTE Stephen [address], [place], [address] , [employer] 4 10:38:47 Adult health examination Active 2023 JULIETTE Stephen [address], [address], [place], [address] , [employer] 4 10:50:50 Nausea 207466002 Active 2023 JULIETTE Stephen [address], [address], [place], [address] , [employer] 4 15:07:54 Wheezing 66642064 Active 2023 JULIETTE Stephen [address], [address], [place], [address] , [employer] 4 15:09:01 Migraine 84754764 Active 2024 JULIETTE Stephen [address], [address], [place], [address] , [employer] 5 09:59:29 Serum vitamin B12 below reference range 380543295 Active 2024 JULIETTE Stephen [address], [address], [place], [address] , [employer] 5 10:31:18 Acute left otitis media 100621719 Active 2024 JULIETTE Stephen [address], [address], [place], [address] , [employer] 5 10:52:48 Problem Notes None recorded. Medical Equipment None Reported. Allergies Allergen ID Allergen Name Allergen Category Reaction Reaction Severity Criticality Documentation Date Start Date Code Code System Note Provider Name and Address Organization Details Recorded Time 04431 codeine medicatio n Not available Not available Not available 11/24/2022 2670 RxNorm Not Available [facility] 3 19:28:33 32353 aspirin medicatio n Not available Not available Not available 11/24/2022 1191 RxNorm Not Available [facility] 3 19:28:33 98109 latex environme nt,medica tion Not available Not available Not available 11/17/2023 78770 91 RxNorm JULIETTE Stephen [address], [address], [place], [address], [facility] [employer] 4 12:37:58 Medications Name Sig Start Date [...] Not Available Not Available No t Available [facility] ODT 75 mg disintegra ting tablet [...] cm 97.8 [degF] 16 /min 22.7 kg/m2 57795.1 6 g 78 /min 98 % 98 % 110 mm[Hg] 72 mm[Hg] Roro Ahmadi [place] [facility] [employer] 5 10:31:53 Social History Question Answer Notes LastModified by [employer] Details LastModified Time Tobacco Smoking Status Never Smoker Not Available [facility] 11/24/2022 19:26:51 What Is Your Level Of Caffeine Consumption? Occasional [email or web address] Information not available 02/01/2023 In The 14 Days Before Symptom Onset, Have You Had Close Contact With A Laboratory-confirm ed COVID-19 While That Case Was Ill? No [id number] Information not available 11/24/2022 In The 14 Days Before Symptom Onset, Have You Had Close Contact With A Person Who Is Under Investigation For COVID-19 While That Person Was Ill? No [id number] Information not available 11/24/2022 Do You Use Your Seat Belt Or Car Seat Routinely? Yes [email or web address] Information not available 02/01/2023 Do You Participate In Social Media? Yes [email or web address] Information not available 02/01/2023 Sex: Unknown Functional Status Question Answer Note LastModified by [employer] Details LastModified Time Do you use any illicit or recreational drugs? No [email or web address] Information not available 02/01/2023 What is your level of alcohol consumption? None [id number] Information not available 11/24/2022 Mental Status Question Answer Note LastModified by Organization D etails LastModified Time Do you feel stressed (tense, restless, nervous, or anxious, or unable to sleep at night)? [id number] [email or web address] Information not available 02/01/2023 Family History Relationship Description Onset Age of this Age Resolved Age Notes LastModified by Organization Details LastModified Time Unspecified Relation Hypertensive disorder [id number] [id number] Not available 11/24/2022 19:26:52 Mother Hypothyroidi sm MIGRATION.152 [id number] Not available 11/24/2022 19:26:52 Mother Malignant tumor of breast MIGRATION.478 [id number] Not available 11/24/2022 19:26:52 Father Open heart surgery MIGRATION.729 [id number] Not available 11/24/2022 19:26:52 Maternal Aunt Malignant tumor of breast MIGRATION.849 [id number] Not available 11/24/2022 19:26:52 Maternal Aunt Malignant tumor of breast MIGRATION.129 [id number] Not available 11/24/2022 19:26:52 Paternal Aunt Malignant tumor of breast MIGRATION.586 [id number] Not available 11/24/2022 19:26:52 Medical History No medical history recorded. Gynecological HistoryNo gynecological history recorded. Obstetrics History GPAL:G 0 P 0 0 0 0 Past Encounters Encounter ID Performer Location Encounter Start Date Encounter Closed Date Diagnosis/Indication Diagnosis SNOMED-CT Code Diagnosis ICD10 Code Diagnosis Note [id number] Rc Grier MD [facility] Armin hernandez [address] [place] [address] [place] [address] 03/03/2021 00:00:00 03/04/2021 06:06:56 [id number] Rc Grier MD [facility] Armin hernandez [address] [place] [address] [place] [address] 05/13/2021 00:00:00 05/13/2021 15:06:21 [id number] Rc Grier MD [facility] Armin hernandez [address] [place] [address] [place] [address] 06/04/2021 00:00:00 06/04/2021 21:26:35 [id number] Rc rGier MD [facility] [place] [address] , [place] [address] 07/30/2021 00:00:00 07/30/2021 20:01:09 [id number] Rc Grier MD [facility] [place] [address] , [place] [address] 08/05/2021 00:00:00 08/05/2021 19:54:41 [id number] Rc Grier MD [facility] [place] [address] , [place] [address] 08/27/2021 00:00:00 08/27/2021 10:11:48 [id number] Rc Grier MD [facility] [place] [address] , [place] [address] 10/15/2021 00:00:00 10/15/2021 19:05:50 [id number] Rc Grier MD [facility] [place] [address] , [place] [address] 12/08/2021 00:00:00 12/24/2021 10:36:21 [id number] Rc Grier MD [facility] [place] [address] , [place] [address] 01/15/2022 00:00:00 01/15/2022 16:46:13 [id number] Rc Grier MD [facility] [place] [address] [place] [address] 03/22/2022 00:00:00 03/26/2022 08:35:22 [id number] Rc Grier MD [facility] [place] [address] [place] [place] [address] 04/01/2022 00:00:00 04/22/2022 18:25:39 [id number] Rc Grier MD [facility] [place] [address] [place] [address] 04/08/2022 00:00:00 04/08/2022 21:43:14 [id number] Rc Grier MD [facility] [place] [address] [place] [address] 04/15/2022 00:00:00 04/15/2022 19:24:29 [id number] Rc Grier MD [facility] [place] [address] [place] [address] 05/14/2022 00:00:00 05/14/2022 15:33:06 [id number] Rc Grier MD [facility] [place] [address] [place] [address] 06/07/2022 00:00:00 06/07/2022 19:47:09 [id number] Rc Grier MD [facility] [place] [address] [place] [address] 06/17/2022 00:00:00 06/17/2022 21:20:04 [id number] Rc Grier MD [facility] [place] [address] [place] [place] [address] 08/02/2022 00:00:00 08/02/2022 12:35:54 [id number] Rc Grier MD [facility] [place] [address] [place] [address] 09/01/2022 00:00:00 09/01/2022 19:41:01 [id number] Rc Grier MD [facility] [place] [address] [place] [place] [address] 10/26/2022 00:00:00 10/26/2022 19:17:45 [id number] Rc Grier MD [facility] [place] [address] [facility] [place] [address] 02/01/2023 11:59:03 02/01/2023 12:40:52 Vitamin B12 deficiency (non anemic) 35457448 E53.8 Acute sinusitis 05772261 J01.90 [id number] Rc Grier MD [facility] [place] [address] [place] [address] [place] [address] 02/07/2023 09:43:21 02/07/2023 10:35:46 Hyperlipidemia 18020493 E78.5 Acute sinusitis 34194110 J01.90 [id number] Rc Grier MD [facility] [place] [address] [place] [address] [place] [address] 07/13/2023 09:52:49 07/13/2023 10:23:25 Adult health examination 997954639 Z00.00 Family his tory of diabetes mellitus type 2 881813054 Z83.3 Seasonal a llergic rhinitis 166043272 J30.2 Vitamin D deficiency 347 96000 E55.9 Screening for malignant neoplasm of breast 272970446 Z12.39 [id number] Rc Grier MD [facility] [place] [address] [address] [place] [address] [place] [address] 09/06/2023 14:12:02 10/13/2023 09:41:17 Cobalamin deficiency 563014335 E53.8 [id number] Rc Grier MD [facility] [place] [address] [place] [address] [place] [address] 09/27/2023 09:59:17 10/10/2023 11:28:05 Cobalamin deficiency 257092421 E53.8 [id number] Rc Grier MD [facility] [place] [address] [facility] [place] [address] 09/29/2023 11:36:49 09/29/2023 12:06:31 Seasonal allergic rhinitis 694145472 J30.2 Acute sinusitis 23607652 J01.90 Dyspnea 426500834 R06.00 Hyperlipidemia 60285868 E78.5 Vitamin D deficiency 347 43680 E55.9 [id number] Rc Grier MD [facility] [place] [address] [place] [address] [place] [address] 10/12/2023 09:58:04 10/12/2023 10:18:07 Acute sinusitis 64265684 J01.90 Seasonal a llergic rhinitis 546341332 J30.2 [id number] Rc Grier MD [facility] [place] [address] [place] [address] [place] [address] 10/27/2023 09:40:07 11/09/2023 08:44:46 Vitamin B12 deficiency (non anemic) 74307709 E53.8 Cobalamin deficiency 190 163108 E53.8 [id number] Rc Grier MD [facility] [place] [address] [place] [address] [place] [address] 11/10/2023 09:56:36 11/10/2023 10:02:31 Cobalamin deficiency 339105371 E53.8 [id number] Rc Grier MD [facility] [place] [address] [place] [address] [place] [address] 11/17/2023 12:24:20 11/17/2023 12:42:51 Pharyngitis 948333448 J02.9 Hyperlipidemia 77481434 E78.5 Seasonal a llergic rhinitis 120053398 J30.2 Vitamin B1 2 deficiency (non anemic) 32684789 E53.8 Vitamin D deficiency 347 40453 E55.9 [id number] Rc Grier MD [facility] [place] [address] [place] [address] [place] [address] 11/24/2023 09:57:06 12/01/2023 09:52:23 Cobalamin deficiency 117352909 E53.8 [id number] Rc Grier MD [facility] [place] [address] [place] [address] 09/12/2023 10:16:34 09/12/2023 10:27:22 Cobalamin deficiency 006571188 E53.8 [id number] Rc Grier MD [facility] [place] [address] [facility] [place] [address] 12/08/2023 10:02:31 12/23/2023 11:47:12 Cobalamin deficiency 023006430 E53.8 [id number] Rc Grier MD [facility] [place] [address] [place] [address] 12/22/2023 10:02:55 01/03/2024 13:32:22 Cobalamin deficiency 545674047 E53.8 [id number] Yair Cook MD [facility] [place] [address] [place] [address] [place] [address] 01/05/2024 10:00:29 01/13/2024 12:02:03 Vitamin B12 deficiency (non anemic) 67270264 E53.8 [id number] Yair Cook MD [facility] [place] [address] [facility] [place] [address] 02/29/2024 10:07:04 02/29/2024 10:43:43 Vitamin B12 deficiency (non anemic) 72152099 E53.8 Hyperlipidemia 90892423 E78.5 Vitamin D deficiency 347 73455 E55.9 Cobalamin deficiency 190 117086 E53.8 Seasonal a llergic rhinitis 448336839 J30.2 Irritable bowel syndrome characterized by constipation 331330796 K58.1 Chronic id iopathic constipation 29545253 K59.04 samples [employer] [address] [facility] #24 on 01/19/24 [id number] Yair Cook MD [facility] [place] [address] [place] [address] 01/19/2024 10:08:35 01/27/2024 11:34:10 Vitamin B12 deficiency (non anemic) 26874086 E53.8 [id number] Yair Cook MD [facility] [place] [address] [facility] [place] [address] 02/02/2024 09:59:18 02/27/2024 11:18:14 Vitamin B12 deficiency (non anemic) 09825916 E53.8 [id number] Yair Cook MD [facility] [place] [address] [facility] [place] [address] 02/16/2024 09:57:27 02/27/2024 11:53:22 Vitamin B12 deficiency (non anemic) 69763463 E53.8 [id number] Yair Cook MD [facility] [place] [address] [place] [address] [place] [address] 03/21/2024 09:47:59 03/26/2024 13:32:47 Vitamin B12 deficiency (non anemic) 40728642 E53.8 [id number] Yair Cook MD [facility] [place] [address] [place] [address] [place] [address] 04/04/2024 09:22:25 04/04/2024 14:10:53 Cobalamin deficiency 171988688 E53.8 Vitamin B1 2 deficiency (non anemic) 80966194 E53.8 [id number] Yair Cook MD [facility] [place] [address] [place] [address] 04/25/2024 10:03:05 05/04/2024 11:51:32 Vitamin B12 deficiency (non anemic) 28203907 E53.8 [id number] Yair Cook MD [facility] [place] [address] [place] [address] 05/09/2024 10:08:45 05/18/2024 11:53:37 Vitamin B12 deficiency (non anemic) 59565644 E53.8 [id number] Yair Cook MD [facility] [place] [address] [facility] [place] [address] 05/23/2024 10:00:23 05/29/2024 10:11:04 Vitamin B12 deficiency (non anemic) 72756220 E53.8 [id number] Yair Cook MD [facility] [place] [address] [facility] [place] [address] 06/06/2024 10:06:49 06/25/2024 15:18:42 Vitamin B12 deficiency (non anemic) 22074212 E53.8 [id number] Yair Cook MD [facility] [place] [address] [facility] [place] [address] 06/20/2024 10:20:08 07/09/2024 13:35:55 Vitamin B12 deficiency (non anemic) 09404130 E53.8 [id number] Yair Cook MD [facility] [place] [address] [facility] [place] [address] 07/04/2024 09:57:27 07/25/2024 15:07:44 Vitamin B12 deficiency (non anemic) 45415190 E53.8 [id number] Yair Cook MD [facility] [place] [address] [facility] [place] [address] 07/18/2024 09:59:19 07/18/2024 10:44:27 Vitamin B12 deficiency (non anemic) 13451337 E53.8 Stomach ache 919708881 R 10.9 from atorvastat in 40 mg Screening mammography 24 101162 Z12.31 Pharyngitis 017918531 J0 2.9 Adult heal th examination 885238078 Z00.00 [id number] Yair Cook MD [facility] [place] [address] [facility] [place] [address] 2024 10:04:35 08/27/2024 09:11:49 Vitamin B12 deficiency (non anemic) 54614082 E53.8 [id number] Yair Cook MD [facility] [place] [address] [facility] [place] [address] 08/15/2024 09:58:43 09/04/2024 09:56:40 Vitamin B12 deficiency (non anemic) 03286756 E53.8 [id number] Yair Cook MD [address] [address] 08/29/2024 10:16:36 08/30/2024 08:06:54 Vitamin B12 deficiency (non anemic) 92777917 E53.8 [id number] Yair Cook MD [address] [address] 09/12/2024 10:16:26 09/12/2024 10:22:25 Vitamin B12 deficiency (non anemic) 05940361 E53.8 [id number] Yair Cook MD [address] [address] 09/27/2024 12:35:26 09/27/2024 15:15:57 Vitamin B12 deficiency (non anemic) 06955795 E53.8 [id number] Yair Cook MD [address] [address] 10/18/2024 10:22:55 10/18/2024 14:43:27 Vitamin B12 deficiency (non anemic) 10918729 E53.8 [id number] Yair Cook MD [address] [address] 11/01/2024 10:12:33 11/01/2024 10:39:06 Cobalamin deficiency 770554377 E53.8 Vitamin B1 2 deficiency (non anemic) 14337708 E53.8 [id number] Yair Cook MD [address] [address] 11/26/2024 10:13:45 11/26/2024 11:00:38 Migraine 03127427 G43.909 Acute left otitis media 286807489 H66.92 Acute sinusitis 35286394 J01.90 Serum isai min B12 below reference range 980700362 R79.89 Seasonal a llergic rhinitis 949778425 J30.2 Vitamin D deficiency 347 37801 E55.9 Vitamin B1 2 deficiency (non anemic) 53437431 E53.8 [id number] Yair Cook MD [address] [address] 12/10/2024 10:14:23 12/10/2024 11:20:41 Serum vitamin B12 below reference range 692521891 R79.89 Health Concerns Section Related Observation LastModified by Organization Detai ls LastModified Time None Recorded Concern Status LastModified by Organization Details LastModified Time None Recorded Advance Directives Directive None Recorded Payers Insurance Date Sequence Insurance Name Policy Number Policy Arana Covered Member ID Arana Member ID Guarantor Name 03/05/2025 2 [facility] - DOS ON OR AFTER 21 (MEDICAID REPLACEMENT - HMO) Eri Liao [id number] Eri Liao 12/13/2024 1 [facility] [id number] Adriana Liao [id number] Eri Liao Notes Date Note Type Note Provider Name and Address Organization Details Recorded Time 11/26/2024 text/html cannot tolerate sumatriptan , nor relpax JULIETTE Stephen [address] [facility] [place] [address], [place], [address], [facility] [employer] 12/01/2024 11:40:08 OBGyn Episode No OBEpisode recorded.
--- NOTE | 2025-03-12 05:58 | ECG_ITS ---
Test Date: 2025-03-12 07:17:48 Measurements Intervals [place] Rate: 61 P: 50 LA: 167 QRS: 55 QRSD: 73 T: 50 QT: 395 QTc: 399 Interpretive Statements SINUS RHYTHM MINIMAL Q WAVES- ANTEROLATERAL LEADS BORDERLINE ECG No previous ECG available for comparison Electronically Signed On 03-12-2025 08:32:51 CDT by Pedro Snow D.O.
[2025-03-12] MEDS: LACTATED RINGERS 1,000 ML 30 ML IV CONT ×2 (06:45→08:31)
[2025-03-12] MEDS: ACETAMINOPHEN 500 MG TABLET 1000 MG PO (06:55)
--- NOTE | 2025-03-12 07:03 | P.PNAN_ITS ---
Anes - Initial Pre Proc Eval Procedure: Operation Date: 03/12/25 07:30 Proposed Procedures p Diagnostic Laparoscopy, - Ron Nina DO s Possible Robotic Assisted Laparoscopic Right Recurrent Inguinal Hernia Repair with Mesh - Ron Nina DO Date/Time: 03/12/25 07:03 Surgeon: Ron Nina DO Pre Op Diagnosis: right groin pain, hx of inguinal hernia repair Patient Data Age: 44 Gender: F Height: 1.52 m Weight: 54.5 kg Allergies Allergy/AdvReac Type Severity Reaction Status Date / Time aspirin Allergy Intermediate SWELLING Verified 03/01/25 11:05 codeine Allergy Intermediate SWELLING Verified 03/01/25 11:05 ferrous gluconate Allergy Intermediate Swelling Verified 03/01/25 11:05 latex Allergy Intermediate Rash; Verified 03/01/25 11:05 swelling NSAIDS (Non-Steroidal Allergy Intermediate Swelling Verified 03/12/25 06:34 Anti-Inflamma Home Medications ?Medication ?Instructions ?Recorded ?Confirmed ?Type vitamin K73-sqouyoe B1 1,000 1 ml IM DIRECTED 11/09/21 03/01/25 History mcg-100 mg/mL injection solution levonorgestrel 0.1 mg-ethinyl 1 tablet PO DAILY 12/28/21 03/01/25 History estradiol 0.02 mg (21)/iron (7) tablet (Balcoltra) atorvastatin 40 mg tablet 40 mg PO DAILY 02/17/24 03/01/25 History docosahexaenoic acid 200 mg 200 mg PO DAILY 01/17/25 03/01/25 History capsule ( DHA) rimegepant 75 mg disintegrating 75 mg PO ONCE PRN migraine headache 01/17/25 03/01/25 History tablet (Nurtec ODT) ergocalciferol (vitamin D2) 1,250 50,000 unit PO WEEKLY 03/01/25 03/01/25 History mcg (50,000 unit) capsule propranolol 60 mg capsule,24 60 mg PO Q24H 03/01/25 03/01/25 History hr,extended release Patient hx anesthesia problems: post op nausea/vomiting Family hx anesthesia problems: none Results Review: All pre-operative results and documents have been reviewed as part of the pre- operative evaluation. [facility] Past Medical History Medical History Allergies Anemia Thyroid disorder Heart problem Hypertension High cholesterol Surgical History Surgical History History of inguinal hernia repair lap RIH repair with mesh, da Jeffery assisted 01/05/22 Hx of tonsillectomy Family History Family History Father Heart attack Status post double vessel coronary artery bypass Cerebrovascular accident Hypertension Heart problem Mother High cholesterol Hypothyroidism Thyroid disorder Social History Social History Smoking status: Never smoker Alcohol intake: never Substance use: never Substance use type: does not use Do You Feel Safe in your Home?: Yes Lack of Transportation: No Lack of Food: Never True Current Housing: I Have Housing Concerned About Future Housing: No Difficulty Paying Gas/Electric Bills: No Difficulty Paying for Meds: No Currently Unemployed: No Education: Associate Degree Difficulty w/ Childcare or Family Care: No Living arrangements: with family Additional living arrangements comments: [facility] [phone] Occupation/Education: occupation Additional occupation/education comments: [employer] Gender identity (if verbalized by the patient): Female Spiritual care concerns: No Anes - Eval Final PreProcedure Day of Procedure 03/12/25 07:03 Patient weight: normal Heart: regular rate and rhythm Lungs: clear to auscultation Airway: Mallampati scale class II Neurological: alert and oriented Last oral intake: >/= 8 hours ASA classification: II Emergent: no Anesthetic plan: proceed Anesthesia type and monitoring: general ETT and standard monitoring Results Review: All pre-operative results and documents have been reviewed as part of the pre- operative evaluation. Informed Consent: The patient's anesthetic plan and its attendant risks and benefits were dis cussed with the patient/family/POA. Questions were solicited and answers provided to the satisfaction of the patient/family/POA.
[2025-03-12] MEDS: SCOPOLAMINE 1 MG PATCH 1 PATCH TRANSDERM (07:08)
--- NOTE | 2025-03-12 07:11 | WPDHPUPDATE1 ---
History and Physical Update Update Date/Time: 03/12/25 07:11 History and Physical has been reviewed, including an updated exam of the patient. There are NO changes in the patient's condition. Risks, benefits, and alternatives have been discussed and questions answered. Patient agrees to proceed with procedure.
--- NOTE | 2025-03-12 07:11 | PM.IMHP ---
H&P: HPI History of Present Illness Date/Time: 03/12/25 07:11 Chief Complaint: Right groin pain Narrative: 43 yo woman presents for diagnostic laparoscopy, possible robotic assisted laparoscopic recurrent right inguinal hernia repair. She reports no changes since last seen in office. Review of Systems Review of Systems: All systems reviewed & are unremarkable except as noted in HPI and below Constitutional: Constitutional: Denies chills, Denies fever(s), Denies headache(s) and Denies weight loss Eyes: Eyes: Denies change in vision ENT: Denies dizziness, Denies headache(s), Denies neck mass and Denies throat swelling Cardiovascular: Cardiovascular: Denies chest pain, Denies lightheadedness and Denies dyspnea Respiratory: Respiratory: Denies cough, Denies dyspnea and Denies wheezing Gastrointestinal: Gastrointestinal: Denies abdominal pain, Denies change in bowel habits, Denies nausea and Denies vomiting Genitourinary: Genitourinary: Denies hematuria and Denies dysuria Musculoskeletal: Musculoskeletal: Reports as per HPI Integumentary/Breasts: Skin/Breast: Reports as per HPI Neurologic: Denies dizziness and Denies headache(s) Allergic/Immunologic: Allergic/Immunologic: Denies throat swelling and Denies wheezing PMFSH Past Medical History Medical History Allergies Anemia Thyroid disorder Heart problem Hypertension High cholesterol Surgical History Surgical History History of inguinal hernia repair lap RIH repair with mesh, da Jeffery assisted 01/05/22 Hx of tonsillectomy Family History Family History Father Heart attack Status post double vessel coronary artery bypass Cerebrovascular accident Hypertension Heart problem Mother High cholesterol Hypothyroidism Thyroid disorder Social History Social History Smoking status: Never smoker Alcohol intake: never Substance use: never Substance use type: does not use Do You Feel Safe in your Home?: Yes Lack of Transportation: No Lack of Food: Never True Current Housing: I Have Housing Concerned About Future Housing: No Difficulty Paying Gas/Electric Bills: No Difficulty Paying for Meds: No Currently Unemployed: No Education: Associate Degree Difficulty w/ Childcare or Family Care: No Living arrangements: with family Additional living arrangements comments: [facility] [phone] Occupation/Education: occupation 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 Gender identity (if verbalized by the patient): Female Spiritual care concerns: No Meds Home Medications and Allergies Home Medications ?Medication ?Instructions ?Recorded ?Confirmed ?Type vitamin M90-tlqqmtv B1 1,000 1 ml IM DIRECTED 11/09/21 03/01/25 History mcg-100 mg/mL injection solution levonorgestrel 0.1 mg-ethinyl 1 tablet PO DAILY 12/28/21 03/01/25 History estradiol 0.02 mg (21)/iron (7) tablet (Balcoltra) atorvastatin 40 mg tablet 40 mg PO DAILY 02/17/24 03/01/25 History docosahexaenoic acid 200 mg 200 mg PO DAILY 01/17/25 03/01/25 History capsule ( DHA) rimegepant 75 mg disintegrating 75 mg PO ONCE PRN migraine headache 01/17/25 03/01/25 History tablet (Nurtec ODT) ergocalciferol (vitamin D2) 1,250 50,000 unit PO WEEKLY 03/01/25 03/01/25 History mcg (50,000 unit) capsule propranolol 60 mg capsule,24 60 mg PO Q24H 03/01/25 03/01/25 History hr,extended release Allergies Allergy/AdvReac Type Severity Reaction Status Date / Time aspirin Allergy Intermediate SWELLING Verified 03/01/25 11:05 codeine Allergy Intermediate SWELLING Verified 03/01/25 11:05 ferrous gluconate Allergy Intermediate Swelling Verified 03/01/25 11:05 latex Allergy Intermediate Rash; Verified 03/01/25 11:05 swelling NSAIDS (Non-Steroidal Allergy Intermediate Swelling Verified 03/12/25 06:34 Anti-Inflamma Exam Const: General: no acute distress and alert Orientation/consciousness: patient oriented x3 HENMT: Head: normocephalic and atraumatic Ears: hearing grossly normal bilaterally Face/Nose/Sinus: Normal nares present Mouth: Yes Normal oral and palatal mucosa present Eyes: Periorbital: periorbital findings normal Sclera: sclerae normal EOM: EOMs intact bilaterally Neck: Neck: normal visual inspection, no lymphadenopathy and trachea midline Chest: Chest palpation & inspection: normal inspection of the chest Resp: Effort & Inspection: normal respiratory effort Auscultation: clear to auscultation bilaterally Cardio: Jugular venous distension: no JVD Rate: regular rate Rhythm: regular rhythm Heart sounds: S1 normal heart sound present and S2 normal heart sound present Peripheral pulses: Peripheral pulses 2+ throughout GI: Inspection: normal to inspection GI Palp: Yes Soft to palpation, No Tenderness to palpation present (GI), No Guarding due to palpation present (GI) and No Rebound tenderness present Percussion: Yes normal to percussion Auscultation: normal bowel sounds : General: Yes no CVA tenderness Back/Spine/Pelvis: Back: no CVA tenderness Neuro: General: patient oriented x3, no focal motor deficits and CN's II-XI intact bilaterally Cognition (Neuro): normal cognition Speech: normal speech Motor exam (neuro): 5/5 motor strength present throughout Extrem: General: capillary refill normal and no clubbing, cyanosis or edema Assessment and Plan Assessment and plan (1) Right groin pain: Code(s): R10.31 - Right lower quadrant pain Status: Acute Assessment and Plan: I have recommended diagnostic laparoscopy, possible robotic assisted laparoscopic recurrent right inguinal hernia repair with mesh. I have discussed the procedure, risks, benefits, and alternatives with the patient. All questions answered. No changes since last seen in office. (2) History of inguinal hernia repair: Code(s): Z98.890 - Other specified postprocedural states; Z87.19 - Personal history of other diseases of the digestive system Status: Acute
[2025-03-12] MEDS: ceFAZolin 2 GM/D5W 50 ML 2 GM/50 ML BAG IVPB (07:30)
[2025-03-12] MEDS: BUPIVACAINE/EPINEPHRINE 0.5% 50 ML VIAL 17 ML INFILTRATE (07:30)
[2025-03-12 07:34] LABS: BEDSIDEPREGUCG Negative (Negative)
--- NOTE | 2025-03-12 08:05 | P.OP_ITS ---
Procedure Note - Detailed Date of Procedure 03/12/25 Pre-op Diagnosis right groin pain, hx of inguinal hernia repair Post-op Diagnosis Other (Pelvic congestion, intact right inguinal hernia repair) Procedure Performed Diagnostic laparoscopy Surgeon Ron Nina DO Anesthesia General and Local (0.5% bupivacaine with epinephrine) Indications This is a 44-year-old who presented with right groin pain for the past several months. She has had persistent pain and a sensation of a bulge when standing. No hernia was palpable on exam. She has a history of robotic assisted laparoscopic right inguinal hernia repair with mesh in 2021. A CT pelvis was initially performed which showed evidence of pelvic congestion syndrome but no sign of recurrent hernia. An MRI of the pelvis was then also performed and this showed similar findings. Discussions were made with the patient about any other treatment or diagnostic options and decision was made to proceed with diagnostic laparoscopy, possible robotic assisted laparoscopic recurrent right inguinal hernia repair with mesh. Findings Diagnostic laparoscopy was performed. There did not appear to be any evidence of adhesions from her prior surgery. Her right inguinal mesh appeared intact with no signs of recurrent hernia. There were no adhesions to the mesh. The cecum was slightly redundant and down in the right pelvis. The uterus appeared slightly enlarged and there were dilated parametrial vessels. No other abnormalities were noted. No specimens were obtained for pathology. Description of Procedure Procedure as well as risks, benefits, and alternatives were discussed with the patient. Written consent was obtained and placed in chart prior to procedure. Patient was brought back to surgical suite. She was placed supine on operating table. Time-out was done to confirm patient and procedure. She was then intubated by the anesthesia department. Her abdomen was prepped and draped in sterile fashion using chlorhexidine prep. A 5 mm incision was made in the left subcostal region and a 5 mm Optiview trocar was advanced through the abdominal layers under direct visualization. Once inside the abdominal cavity, carbon dioxide insufflation was used to create a pneumoperitoneum. The camera was inserted in the abdomen was inspected. No mediate abnormalities were noted. The patient was placed in Trendelenburg position. The right lower quadrant was carefully inspected. The right inguinal mesh appeared in position overlying the entire right myopectineal orifice. There was no evidence of recurrent hernia. Another 5 mm incision was made in the right lateral abdomen and a 5 mm trocar was inserted under direct visualization. The cecum was retracted away from the right groin region to ensure that there was no evidence of a hernia coming from the inferior portion of the mesh. Again, the mesh appeared completely incorporated and intact with no adhesions to it. The pelvis was then inspected. The uterus appeared slightly enlarged and the parametrial vessels appeared enlarged, especially on the left side. No other abnormalities were noted. Pictures were taken of the right groin region and pelvis. The patient was flat tened out in bed and 1 final inspection was made around the abdominal cavity. No other abnormalities were noted. The port was then removed under direct visualization, the camera was removed and the pneumoperitoneum was released. 0.5% bupivacaine with epinephrine was infiltrated locally around each of the incisions. The skin of the incision was then approximated using 4-0 Monocryl subcuticular suture. Exofin glue was then applied on top. Estimated Blood Loss 2 Complications No immediate complications Condition Stable Disposition Same day [facility] Billing Surgery - Charge Forward: Surgery Billing
[2025-03-12] MEDS: ONDANSETRON INJ 4 MG/2 ML VIAL IV PUSH (08:34)
--- NOTE | 2025-03-12 09:51 | SUR.PHASEII ---
PATIENT REPORTS A THROBBING FEELING AT THE IV SITE SINCE ITS PLACEMENT. NO SWELLING/REDNESS NOTED. PATIENT ASKED IF SHE COULD APPLY HEAT OR COLD TO IT NEEDED; THIS RN SAID THAT WOULD BE FINE IF IT HELPS.
== END 2025-03-12 09:48 | disposition home or self-care (01) ==
PROVIDERS: Anesthesiology; PCP Nurse Practitioner; Visit Provider Surgery
PROC: (CPT 49320; principal; 2025-03-12 07:30)
DX: R10.31 Right lower quadrant pain (principal); N94.89 Other specified conditions associated with female genital organs and menstrual cycle; Z98.890 Other specified postprocedural states
CPT/HCPCS: 49320; 93005; A9270; J0690; J1100; J2003; J2250; J2405; J2704; J3010; J7120

== ENCOUNTER 2025-06-14 09:27 | Outpatient (CLI) | payer BC, SELFPAY ==
--- OUTSIDE RECORDS SUMMARY | 2025-06-14 09:34 | XMS_ITS | Clinical Summary ---
Author Organization [facility] Address [address] [place] [address] Care Team Providers Care Hybrid Corn Breeder Name Role Phone Rc Grier MD Primary Care Provider [phone] Allergies Active Allergy Reactions Criticality Noted Date [...] Encounters Date Type Department Care Team Description 04/30/2025 External Device Data [facility] ABSTRACTION Provider, Abstract 04/10/2025 External Device Data [facility]CTION Provider, Abstract 04/10/2025 External Device Data [facility] Provider, Abstract 03/14/2025 4:30 PM CDT Telephone Check Up 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 Oncology and Hematology [facility] [address] [place] [address] Bhanu Magdaleno MD [address] [place] [address] Health Maintenance Due Date Last Done Comments DTAP/TDAP/TD VACCINES (1 - Tdap) 2000 HEPATITIS B VACCINES (1 of 3 - 19+ 3-dose series) 02/2000 HPV/Cotest (21-29) 2002 HPV VACCINES (1 - 3-dose SCDM series) 2008 CERVICAL CANCER SCREENING 2011 HPV/Cotest (30-65) 2011 PAP SMEAR 2011 BREAST CANCER SCREENING 2021 INFLUENZA VACCINE (#1) 2025 Insurance BLUE PREFERRED Care Teams Hybrid Corn Breeder Relationship Specialty Start Date End Date Rc Grier MD PCP - General Family Practice 02/16/23
[2025-06-14 09:55] LABS: Hematocrit 44.3 % (37.0-47.0); Hemoglobin 14.6 g/dL (12.0-15.0); Immature Granulocyte Percent A 0.0 % (0-0.5); Lymphocytes Absolute Auto 2.81 K/mm3 (0.9-3.2); Mean Corpuscular HGB Conc 33.0 g/dl (32-36); Mean Corpuscular Hemoglobin 32.1 pg (26-34); Mean Corpuscular Volume 97.4 fl (80-100); Nucleated Red Blood Cells Absolute Auto 0.000 K/mm3 (0.0-0.012); Nucleated Red Blood Cells Perc 0.0 % (0.0-0.2); Platelet Count Result 196 k/mm3 (150-375); Red Blood Count 4.55 M/mm3 (4.2-5.4); White Blood Count 5.4 K/mm3 (4.5-10.0)
== END 2025-06-14 09:28 | disposition home or self-care (01) ==
LOC: ANHSURGERY 09:32
PROVIDERS: PCP Nurse Practitioner; Visit Provider Obstetrics & Gynecology
DX: E53.8 Deficiency of other specified B group vitamins (principal); Z01.818 Encounter for other preprocedural examination
CPT/HCPCS: 36415; 85025; 86850; 86900; 86901

== ENCOUNTER 2025-06-21 00:45 | Day surgery (SDC) | payer BC, SELFPAY ==
--- NOTE | 2025-06-11 14:22 | PC.NURSE ---
Report to the Outpatient Waiting Room, entrance under the green pavilion located off [facility], at time _0700AM_ on date __Tue06/21/25 . Planned Procedure Time: _0900AM .? Time changes happen often and if your time is changed the preop area will call you the afternoon before. - You and your visitor will be asked to self-screen and do not enter if you have any COVID symptoms. Please call surgeon if you need to reschedule. - A mask is optional within the hospital at this time. Patients may have clear liquids (water, carbonated beverages, clear teas, apple juice) until 3 hours prior to surgery (0600AM) with a maximum of 20 ounces. - No food from midnight until time of surgery and no smoking, or chewing tobacco (or any form of nicotine). No chewing gum, candy or mints. Take only the following medications with a SIP of water on the morning of surgery: _NURTEC ODT IF NEEDED; PROPANOLOL DO NOT STOP ANY OF YOUR OTHER PRESCRIPTION MEDICATIONS PRIOR TO SURGERY EXCEPT THE FOLLOWING Hold all vitamins and supplements for 3 days per anesthesiologist. Medications to discontinue per physician N/A Date to take last dose___N/A Please no make-up, nail maltese, hairspray, perfume, deodorant, or body powder the day of surgery.? No jewelry (including any body piercings) or valuables the day of surgery, leave them at home.? Please take a shower or bath the night before, or the morning of, surgery with an antibacterial soap.? Wear comfortable, loose fitting clothing.? BRING AN OVERNIGHT BAG FOR ADMISSION TO HOSPITAL POST OP - Jewelry must be removed prior to entering the operating room.? Rings and piercings that are not removed may be cut off. - The hospital will not accept responsibility for valuables.? - Please leave all valuables, including medications, at home the day of surgery. If you are going home after surgery, a licensed pole truck driver must drive you home.? - NO public transportation without another adult if you receive anesthesia. - We recommend that an adult stay with you for 24 hours following discharge. - We also recommend that you do not drive, make important decision, drink alcoholic beverages, or take any drugs that were not prescribed by your health care provider for at least 24 hours after your discharge time. Follow any additional instructions given to you from your surgeon. Telephone instructions given to _AZRA and asked if any additional questions and then verbalized understanding. Patient advised to call surgeon office or pre surgery nurse liaison [phone] if any additional questions.
--- NOTE | 2025-06-18 11:55 | PM.IMHP ---
H&P: HPI History of Present Illness Date/Time: 06/18/25 11:55 Chief Complaint: Severe pelvic pain and dyspareunia with enlarged uterus Narrative: 44-year-old female admitted for robotic total vaginal hysterectomy bilateral salpingectomy secondary to an enlarged uterus and pelvic congestion. Patient has had recent repair of inguinal hernia. She has pelvic pain dyspareunia and has an enlarged uterus ultrasound reveals pelvic congestion. Risks and benefits of this procedure reviewed including not exclusive of , aspiration pneumonia, bleeding, transfusion, perforation injury to bowel, bladder, ureters, or other internal organs with need for open laparotomy. She received the ACOG handout entitled hysterectomy. She had all questions answered. She asked to proceed. Review of Systems Review of Systems: All systems reviewed & are unremarkable except as noted in HPI and below Constitutional: Constitutional: Denies chills, Denies fever(s), Denies headache(s) and Denies weight loss Eyes: Eyes: Denies change in vision ENT: Denies dizziness, Denies headache(s), Denies neck mass and Denies throat swelling Cardiovascular: Cardiovascular: Denies chest pain, Denies lightheadedness and Denies dyspnea Respiratory: Respiratory: Denies cough, Denies dyspnea and Denies wheezing Gastrointestinal: Gastrointestinal: Denies abdominal pain, Denies change in bowel habits, Denies nausea and Denies vomiting Genitourinary: Genitourinary: Denies hematuria and Denies dysuria Musculoskeletal: Musculoskeletal: Reports as per HPI Integumentary/Breasts: Skin/Breast: Reports as per HPI Neurologic: Denies dizziness and Denies headache(s) Allergic/Immunologic: Allergic/Immunologic: Denies throat swelling and Denies wheezing [facility] Past Medical History Medical History Allergies Anemia Thyroid disorder Heart problem Hypertension High cholesterol Surgical History Surgical History Hx of laparoscopy 03/12/[address] Nina History of inguinal hernia repair lap RIH repair with mesh, da Jeffery assisted 01/05/22 Hx of tonsillectomy Family History Family History Father Heart attack Status post double vessel coronary artery bypass Cerebrovascular accident Hypertension Heart problem Mother High cholesterol Hypothyroidism Thyroid disorder Social History Social History Smoking status: Never smoker Alcohol intake: never Substance use: never Substance use type: does not use Do You Feel Safe in your Home?: Yes Lack of Transportation: No Lack of Food: Never True Current Housing: I Have Housing Concerned About Future Housing: No Difficulty Paying Gas/Electric Bills: No Difficulty Paying for Meds: No Currently Unemployed: No Education: Associate Degree Difficulty w/ Childcare or Family Care: No Living arrangements: with family Additional living arrangements comments: [facility] [phone] Occupation/Education: occupation Additional occupation/education comments: [employer] Gender identity (if verbalized by the patient): Female Spiritual care concerns: No Meds Home Medications and Allergies Home Medications ?Medication ?Instructions ?Recorded ?Confirmed ?Type vitamin H62-tlynguc B1 1,000 1 ml IM DIRECTED 11/09/21 06/11/25 History mcg-100 mg/mL injection solution levonorgestrel 0.1 mg-ethinyl 1 tablet PO DAILY 12/28/21 06/11/25 History estradiol 0.02 mg (21)/iron (7) tablet (Balcoltra) atorvastatin 40 mg tablet 40 mg PO DAILY 02/17/24 06/11/25 History rimegepant 75 mg disintegrating 75 mg PO ONCE PRN migraine headache 01/17/25 06/11/25 History tablet (Nurtec ODT) ergocalciferol (vitamin D2) 1,250 50,000 unit PO WEEKLY 03/01/25 06/11/25 History mcg (50,000 unit) capsule propranolol 60 mg capsule,24 60 mg PO Q24H 03/01/25 06/11/25 History hr,extended release Allergies Allergy/AdvReac Type Severity Reaction Status Date / Time aspirin Allergy Intermediate SWELLING Verified 06/11/25 14:20 codeine Allergy Intermediate SWELLING Verified 06/11/25 14:20 ferrous gluconate Allergy Intermediate Swelling Verified 06/11/25 14:20 latex Allergy Intermediate Rash; Verified 06/11/25 14:20 swelling NSAIDS (Non-Steroidal Allergy Intermediate Swelling Verified 06/11/25 14:20 Anti-Inflamma Exam Const: General: cooperative, healthy appearing, comfortable, well groomed and average body habitus Orientation/consciousness: oriented to person, oriented to place and oriented to time HENMT: Head: normal to inspection Resp: Effort & Inspection: normal respiratory effort Cardio: Rate: regular rate Rhythm: regular rhythm Heart sounds: S1 normal heart sound present and S2 normal heart sound present GI: Inspection: normal to inspection : External Female Exam: normal external appearance Speculum Exam - Vagina: normal appearance of the vagina Speculum Exam - Cervix: normal appearance of the cervix Bimanual exam- vagina & uterus: enlarged and Uterine tenderness Bimanual Exam- Adnexa, other: normal adnexae Assessment and Plan Assessment and plan (1) Enlarged uterus: Code(s): N85.2 - Hypertrophy of uterus Status: Acute (2) Pelvic pain: Code(s): R10.2 - Pelvic and perineal pain Status: Acute (3) Pelvic congestion: Code(s): N94.89 - Other specified conditions associated with female genital organs and menstrual cycle Status: Acute Plan Proceed with laparoscopic robotic total vaginal hysterectomy and bilateral salpingectomy
[2025-06-21] VITALS (14 sets, daily range): BP systolic 95–112; BP diastolic 40–60; PULSE 61–93; RESP 12–18; TEMP 36.3–36.9; O2SAT 95–100
--- OUTSIDE RECORDS SUMMARY | 2025-06-21 00:48 | XMS_ITS | Encounter Summary ---
Author Organization [facility] Address [address] [place] [id number] Care Team Providers Care Internet Programmer Name Role Phone Luna Henson NP Primary Care Provider [phone] Encounter Details Date Type Department Care Team (Latest Contact Info) Description 06/13/2025 Results Follow-Up [facility] [place] [address] [place], [place] [id number] Luna Henson NP [address] [place] [address] LIPID PANEL, TSH W/REFLEX, VITAMIN B-12, Additional followed-up results: 3 Social History Tobacco Use Types Packs/Day Years [...] as of this encounter Plan of Treatment Not on file documented as of this encounter Visit Diagnoses Not on filedocumented in this encounter Care Teams Internet Programmer Relationship Specialty Start Date End Date Luna Henson NP [address] [place], [place] [id number] PCP - General NURSE PRACTITIONER 12/03/24 documented as of this encounter
--- OUTSIDE RECORDS SUMMARY | 2025-06-21 00:48 | XMS_ITS | Data Portability ---
Author Organization [place] - [facility], Main Office Address [address] [place] [address] Assessment No assessment recorded. Plan of Treatment Reminders Order Date Submit Date Provider Last Modified By Organization Details Last Modified Time Details Appointments None recorded. Lab None recorded. Referral None recorded. Procedures None recorded. Surgeries None recorded. Imaging None recorded. Medication Orders cyanocobala min (vit B-12) 1,000 mcg/mL injection solution [address] [facility], [address] [place], [place], [id number], 5 12:01:26 Nurtec ODT 75 mg disintegrat ing tablet 2024 025 [facility]43929, [address] [place], [place], [id number], 10:52:09 amoxicillin 875 mg-potassiu m clavulanate 125 mg tablet 2024 025 [facility]89614, [address] [place], [place], [id number], 5 10:53:45 fluconazole 150 mg tablet 2024 025 [facility]81772, [address] [place], [id number], 5 10:54:37 cyanocobala min (vit B-12) 1,000 mcg/mL injection solution 2024 025 [email or web address] 4 Not available 5 12:56:55 cyanocobala min (vit B-12) 1,000 mcg/mL injection solution 2024 025 [email or web address] Not available 5 12:54:43 cyanocobala min (vit B-12) 1,000 mcg/mL injection solution 2024 025 [email or web address] 200 Not available 5 16:26:16 Patient TargetsNo targets recorded. Patient InstructionsNo instructions recorded. Reason for Referral None Reported. Results Created Date Observation Date Name Description Value Unit Range Abnormal Flag Note LastModifiedBy Organization Detail LastModifiedTime 12/20/1912/18/2024 chioi ng/james javed tic resul t No observ ation record ed. [address], [place], [address], 12/19/2024 14:50:25 Result Notes None recorded. Problems Name Problem SNOMED Code Status Onset Date Resolution Date Notes Provider Name and Address Organization Details Recorded Time Pain of joint of wrist Active Not Available [facility] 3 04:20:42 Radial styloid tenosynovitis 77623468 Active Not Available [facility] 3 04:20:42 Cobalamin deficiency 688689682 Active 2021 Not Available [facility] 3 04:20:42 Vitamin B12 deficiency (non anemic) 71109678 Active 2021 Not Available [facility] 3 04:20:42 Acute sinusitis 13982678 Active 2022 Not Available [facility] 3 04:20:42 Hyperlipidemi a 55923646 Active 2022 Not Available [facility] 3 04:20:42 Seasonal allergic rhinitis 643839832 Active 2022 Not Available [facility] 3 04:20:42 Vitamin D deficiency 95721790 Active 2022 Not Available [facility] 3 04:20:42 Dyspnea 388595344 Active 2023 JULIETTE Stephen [address], [address], [place], [address] , [employer] [facility] 4 11:58:46 Pharyngitis 830926841 Active 2023 JULIETTE Stephen [address], [address], [place], [address] , [facility] 4 12:38:20 Chronic idiopathic constipation 99500341 Active 2023 JULIETTE Stephen [address], [address], [place], [address] , [facility] [facility] 4 10:11:42 Constipation 45709977 Active 2023 Keysha Penn [facility], [employer] [facility] 4 10:14:22 Contraception care Active 2023 JULIETTE Stephen [address], [address], [place], [address] , [facility] 4 10:10:59 Irritable bowel syndrome characterized by constipation 188032882 Active 2023 JULIETTE Stephen [address], [address], [place], [address] , [facility] 4 21:05:52 Stomach ache 351786394 Active 2023 JULIETTE Stephen [address], [address], [place], [address] , [facility] 4 10:37:25 Screening mammography Active 2023 JULIETTE Stephen [address], [address], [place], [address] , [employer] [facility] 4 10:38:47 Adult health examination Active 2023 JLUIETTE Stephen [address], [address], [place], [address] , [facility] 4 10:50:50 Nausea 541383859 Active 2023 JULIETTE Stephen [address], [address], [place], [address] , [facility] 4 15:07:54 Wheezing 62491271 Active 2023 JULIETTE Stephen [address], [place], [address] , [facility] 4 15:09:01 Migraine 85491994 Active 2024 JULIETTE Stephen [address], [address], [place], [address] , [employer] [facility] 5 09:59:29 Serum vitamin B12 below reference range 429079873 Active 2024 JULIETTE Stephen [address], [address], [place], [address] , [employer] [facility] 5 10:31:18 Acute left otitis media 464729488 Active 2024 JULIETTE Stephen [address], [place], [address] , [employer] [facility] 5 10:52:48 Problem Notes None recorded. Medical Equipment None Reported. Allergies Allergen ID Allergen Name Allergen Category Reaction Reaction Severity Criticality Documentation Date Start Date Code Code System Note Provider Name and Address Organization Details Recorded Time 07567 codeine medicatio n Not available Not available Not available 11/24/2022 2670 RxNorm Not Available [facility] 3 19:28:33 04419 aspirin medicatio n Not available Not available Not available 11/24/2022 1191 RxNorm Not Available [facility] 3 19:28:33 64720 latex environme nt,medica tion Not available Not available Not available 11/17/2023 83905 91 RxNorm JULIETTE Stephen [address], [place], [address], [facility] 4 12:37:58 Medications Name Sig Start Date [...] day by oral route for 90 days. 06/19/ 2024 active Not Available Not Available Not Avai lable Balcoltra 0.1 mg-0.02 mg (21)/iron (7) tablet TAKE 1 TABLET BY MOUTH DAILY active Not Available Not Available No t Available M- Plus 27 mg iron-1 mg tablet TAKE 1 TABLET BY MOUTH DAILY active Not Available Not Available No t Available [facility] ODT 75 mg disintegra ting tablet DISSOLVE 1 TABLET ON THE TONGUE EVERY OTHER DAY DIRECTED active Not Available Not Available No t Available Vitals Date Recorded Body height Body temperature Respiratory rate Body mass index (BMI) Body weight Heart rate Oxygen saturation Oxygen saturation in Arterial blood by Pulse oximetry Systolic And Diastolic Provider Name and Address Organization Details Last Updated DateTime 5 154.94 cm 97.8 [degF] 16 /min 22.7 kg/m2 97587.1 6 g 78 /min 98 % 98 % 110/72 mm[Hg] Roro Ahmadi [place] [facility] 5 10:31:53 Social History Question Answer Notes LastModified by [employer] Details LastModified Time Tobacco Smoking Status Never Smoker Not Available [facility] 11/24/2022 19:26:51 What Is Your Level Of Caffeine Consumption? Occasional [email or web address] Information not available 02/01/2023 In The 14 Days Before Symptom Onset, Have You Had Close Contact With A Laboratory-confirm ed COVID-19 While That Case Was Ill? No [id number] Information not available 11/24/2022 In The 14 Days Before Symptom Onset, Have You Had Close Contact With A Person Who Is Under Investigation For COVID-19 While That Person Was Ill? No [id number] Information not available 11/24/2022 Do You Use Your Seat Belt Or Car Seat Routinely? Yes [email or web address] Information not available 02/01/2023 Do You Participate In Social Media? Yes [email or web address] Information not available 02/01/2023 Sex: Unknown Functional Status Question Answer Note LastModified by [employer] Details LastModified Time Do you use any illicit or recreational drugs? No [email or web address] Information not available 02/01/2023 What is your level of alcohol consumption? None [id number] Information not available 11/24/2022 Mental Status Question Answer Note LastModified by Organization D etails LastModified Time Do you feel stressed (tense, restless, nervous, or anxious, or unable to sleep at night)? [id number] [email or web address] Information not available 02/01/2023 Family History Relationship Description Onset Age of this Age Resolved Age Notes LastModified by Organization Details LastModified Time Unspecified Relation Hypertensive disorder MIGRATION.140 [id number] Not available 11/24/2022 19:26:52 Mother Hypothyroidi sm MIGRATION.084 [id number] Not available 11/24/2022 19:26:52 Mother Malignant tumor of breast MIGRATION.226 5401463 Not available 11/24/2022 19:26:52 Father Open heart surgery MIGRATION.130 [id number] Not available 11/24/2022 19:26:52 Maternal Aunt Malignant tumor of breast MIGRATION.712 [id number] Not available 11/24/2022 19:26:52 Maternal Aunt Malignant tumor of breast MIGRATION.579 [id number] Not available 11/24/2022 19:26:52 Paternal Aunt Malignant tumor of breast MIGRATION.042 [id number] Not available 11/24/2022 19:26:52 Medical History No medical history recorded. Gynecological HistoryNo gynecological history recorded. Obstetrics History GPAL:G 0 P 0 0 0 0 Past Encounters Encounter ID Performer Location Encounter Start Date Encounter Closed Date Diagnosis/Indication Diagnosis SNOMED-CT Code Diagnosis ICD10 Code Diagnosis IMO Codes Diagnosis Note [id number] Rc Grier MD [facility] [place] [address] [place] [address] 03/03/2021 00:00:00 03/04/2021 06:06:56 [id number] Rc Grier MD [facility] [place] [address] [place] [address] [place] [address] 05/13/2021 00:00:00 05/13/2021 15:06:21 [id number] Rc Grier MD [facility] [place] [address] [place] [address] [place] [address] 06/04/2021 00:00:00 06/04/2021 21:26:35 [id number] Rc Grier MD [facility] [place] [address] [place] [address] 07/30/2021 00:00:00 07/30/2021 20:01:09 [id number] Rc Grier MD [facility] [place] [address] [place] [address] 08/05/2021 00:00:00 08/05/2021 19:54:41 [id number] Rc Grier MD [facility] [place] [address] [place] [address] 08/27/2021 00:00:00 08/27/2021 10:11:48 [id number] Rc Grier MD [facility] [place] [address] [place] [address] 10/15/2021 00:00:00 10/15/2021 19:05:50 [id number] Rc Grier MD [facility] [place] [address] [place] [address] 12/08/2021 00:00:00 12/24/2021 10:36:21 [id number] Rc Grier MD [facility] [place] [address] [place] [address] 01/15/2022 00:00:00 01/15/2022 16:46:13 [id number] Rc Grier MD [facility] [place] [address] [place] [address] 03/22/2022 00:00:00 03/26/2022 08:35:22 [id number] Rc Grier MD [facility] [place] [address] [place] [place] [address] 04/01/2022 00:00:00 04/22/2022 18:25:39 [id number] Rc Grier MD [facility] [place] [address] [place] [address] 04/08/2022 00:00:00 04/08/2022 21:43:14 [id number] Rc Grier MD [facility] [place] [address] [place] [address] 04/15/2022 00:00:00 04/15/2022 19:24:29 [id number] Rc Grier MD [facility] [place] [address] [place] [address] 05/14/2022 00:00:00 05/14/2022 15:33:06 [id number] Rc Grier MD [facility] [place] [facility] [place] [address] 06/07/2022 00:00:00 06/07/2022 19:47:09 [id number] Rc Grier MD [facility] [place] [facility] [place] [address] 06/17/2022 00:00:00 06/17/2022 21:20:04 [id number] Rc Grier MD [facility] [place] [address] [place] [address] 08/02/2022 00:00:00 08/02/2022 12:35:54 [id number] Rc Grier MD [facility] [place] [address] [place] [address] 09/01/2022 00:00:00 09/01/2022 19:41:01 [id number] Rc Grier MD [facility] [place] [address] [place] [address] 10/26/2022 00:00:00 10/26/2022 19:17:45 [id number] Rc Grier MD [facility] [place] [address] [facility] [place] [address] 02/01/2023 11:59:03 02/01/2023 12:40:52 Vitamin B12 deficiency (non anemic) 36016641 E53.8 Acute sinusitis 02804329 J01.90 [id number] Rc Grier MD [facility] [place] [address] [place] [address] [place] [address] 02/07/2023 09:43:21 02/07/2023 10:35:46 Hyperlipidemia 67386072 E78.5 Acute sinusitis 82004453 J01.90 [id number] Rc Grier MD [facility] [place] [address] [place] [address] [place] [address] 07/13/2023 09:52:49 07/13/2023 10:23:25 Adult health examination 982206285 Z00.00 Family his tory of diabetes mellitus type 2 672149546 Z83.3 Seasonal a llergic rhinitis 971662036 J30.2 Vitamin D deficiency 347 47364 E55.9 Screening for malignant neoplasm of breast 463200504 Z12.39 [id number] Rc Grier MD [facility] [place] [address] [place] [address] [place] [address] 09/06/2023 14:12:02 10/13/2023 09:41:17 Cobalamin deficiency 035920517 E53.8 [id number] Rc Grier MD [facility] [place] [address] [place] [address] [place] [address] 09/27/2023 09:59:17 10/10/2023 11:28:05 Cobalamin deficiency 983200141 E53.8 [id number] Rc Grier MD [facility] [place] [address] [facility] [place] [address] 09/29/2023 11:36:49 09/29/2023 12:06:31 Seasonal allergic rhinitis 901486125 J30.2 Acute sinusitis 56588348 J01.90 Dyspnea 179230454 R06.00 Hyperlipidemia 24344161 E78.5 Vitamin D deficiency 347 41904 E55.9 [id number] Rc Grier MD [facility] [place] [address] [facility] [place] [address] 10/12/2023 09:58:04 10/12/2023 10:18:07 Acute sinusitis 82215998 J01.90 Seasonal a llergic rhinitis 730216209 J30.2 [id number] Rc Grier MD [facility] [place] [address] [place] [address] [place] [address] 10/27/2023 09:40:07 11/09/2023 08:44:46 Vitamin B12 deficiency (non anemic) 72743653 E53.8 Cobalamin deficiency 190 307542 E53.8 [id number] Rc Grier MD [facility] [place] [address] [place] [address] [place] [address] 11/10/2023 09:56:36 11/10/2023 10:02:31 Cobalamin deficiency 070636287 E53.8 [id number] Rc Grier MD [facility] [place] [address] [facility] [place] [address] 11/17/2023 12:24:20 11/17/2023 12:42:51 Pharyngitis 603615884 J02.9 Hyperlipidemia 49355988 E78.5 Seasonal a llergic rhinitis 599104400 J30.2 Vitamin B1 2 deficiency (non anemic) 17513129 E53.8 Vitamin D deficiency 347 17674 E55.9 [id number] Rc Grier MD [facility] [place] [address] [place] [address] 11/24/2023 09:57:06 12/01/2023 09:52:23 Cobalamin deficiency 291106311 E53.8 [id number] Rc Grier MD [facility] [place] [address] [place] [address] 09/12/2023 10:16:34 09/12/2023 10:27:22 Cobalamin deficiency 808810028 E53.8 [id number] Rc Grier MD [facility] [place] [address] [facility] [place] [address] 12/08/2023 10:02:31 12/23/2023 11:47:12 Cobalamin deficiency 359410957 E53.8 [id number] Rc Grier MD [facility] [place] [address] [facility] [place] [address] 12/22/2023 10:02:55 01/03/2024 13:32:22 Cobalamin deficiency 723645891 E53.8 [id number] Yair Cook MD [facility] [place] [address] [facility] [place] [address] 01/05/2024 10:00:29 01/13/2024 12:02:03 Vitamin B12 deficiency (non anemic) 94432984 E53.8 [id number] Yair Cook MD [facility] [place] [address] [facility] [place] [address] 02/29/2024 10:07:04 02/29/2024 10:43:43 Vitamin B12 deficiency (non anemic) 75717482 E53.8 Hyperlipidemia 91745948 E78.5 Vitamin D deficiency 347 32797 E55.9 Cobalamin deficiency 190 547405 E53.8 Seasonal a llergic rhinitis 949862031 J30.2 Irritable bowel syndrome characterized by constipation 201209210 K58.1 Chronic id iopathic constipation 20487607 K59.04 samples Linzess 290 mcg #24 on 01/19/24 [id number] Yair Cook MD [facility] [place] [address] [place] [address] 01/19/2024 10:08:35 01/27/2024 11:34:10 Vitamin B12 deficiency (non anemic) 28281960 E53.8 [id number] Yair Cook MD [facility] [place] [address] [place] [address] 02/02/2024 09:59:18 02/27/2024 11:18:14 Vitamin B12 deficiency (non anemic) 91864361 E53.8 [id number] Yair Cook MD [facility] [place] [address] [facility] [place] [address] 02/16/2024 09:57:27 02/27/2024 11:53:22 Vitamin B12 deficiency (non anemic) 42456291 E53.8 [id number] Yair Cook MD [facility] [place] [address] [place] [address] [place] [address] 03/21/2024 09:47:59 03/26/2024 13:32:47 Vitamin B12 deficiency (non anemic) 10019012 E53.8 [id number] Yair Cook MD [facility] [place] [address] [place] [address] 04/04/2024 09:22:25 04/04/2024 14:10:53 Cobalamin deficiency 438559275 E53.8 Vitamin B1 2 deficiency (non anemic) 03674812 E53.8 [id number] Yair Cook MD [facility] [place] [address] [place] [address] 04/25/2024 10:03:05 05/04/2024 11:51:32 Vitamin B12 deficiency (non anemic) 77315207 E53.8 [id number] Yair Cook MD [facility] [place] [address] [facility] [place] [address] 05/09/2024 10:08:45 05/18/2024 11:53:37 Vitamin B12 deficiency (non anemic) 51505425 E53.8 [id number] Yiar Cook MD [facility] [place] [address] [facility] [place] [address] 05/23/2024 10:00:23 05/29/2024 10:11:04 Vitamin B12 deficiency (non anemic) 36940266 E53.8 [id number] Yair Cook MD [facility] [place] [address] [facility] [place] [address] 06/06/2024 10:06:49 06/25/2024 15:18:42 Vitamin B12 deficiency (non anemic) 52327973 E53.8 [id number] Yair Cook MD [facility] [place] [address] [facility] [place] [address] 06/20/2024 10:20:08 07/09/2024 13:35:55 Vitamin B12 deficiency (non anemic) 81303530 E53.8 [id number] Yair Cook MD [facility] [place] [address] [facility] [place] [address] 07/04/2024 09:57:27 07/25/2024 15:07:44 Vitamin B12 deficiency (non anemic) 88367426 E53.8 [id number] Yair Cook MD [facility] [place] [address] [facility] [place] [address] 07/18/2024 09:59:19 07/18/2024 10:44:27 Vitamin B12 deficiency (non anemic) 66573657 E53.8 Stomach ache 060077294 R 10.9 from atorvastat in 40 mg Screening mammography 24 933558 Z12.31 Pharyngitis 798067198 J0 2.9 Adult heal th examination 980268709 Z00.00 [id number] Yair Cook MD [facility] [place] [address] [facility] [place] [address] 2024 10:04:35 08/27/2024 09:11:49 Vitamin B12 deficiency (non anemic) 05198560 E53.8 [id number] Yair Cook MD [facility] [place] [address] [facility] [address] [place] [address] 08/15/2024 09:58:43 09/04/2024 09:56:40 Vitamin B12 deficiency (non anemic) 23660426 E53.8 [id number] Yair Cook MD [address] [address] 08/29/2024 10:16:36 08/30/2024 08:06:54 Vitamin B12 deficiency (non anemic) 17446873 E53.8 [id number] Yair Cook MD [address] [address] 09/12/2024 10:16:26 09/12/2024 10:22:25 Vitamin B12 deficiency (non anemic) 97380653 E53.8 [id number] Yair Cook MD [address] [address] 09/27/2024 12:35:26 09/27/2024 15:15:57 Vitamin B12 deficiency (non anemic) 82799601 E53.8 [id number] Yair Cook MD [address] [address] 10/18/2024 10:22:55 10/18/2024 14:43:27 Vitamin B12 deficiency (non anemic) 70930903 E53.8 [id number] Yair Cook MD [address] [address] 11/01/2024 10:12:33 11/01/2024 10:39:06 Cobalamin deficiency 686707392 E53.8 Vitamin B1 2 deficiency (non anemic) 52933510 E53.8 [id number] Yair Cook MD [address] [address] 11/26/2024 10:13:45 11/26/2024 11:00:38 Migraine 91991056 G43.909 Acute left otitis media 040139149 H66.92 Acute sinusitis 77033303 J01.90 Serum isai min B12 below reference range 466983955 R79.89 Seasonal a llergic rhinitis 480502579 J30.2 Vitamin D deficiency 347 40247 E55.9 Vitamin B1 2 deficiency (non anemic) 90567423 E53.8 [id number] Yair Cook MD [address] [address] 12/10/2024 10:14:23 12/10/2024 11:20:41 Serum vitamin B12 below reference range 971921226 R79.89 Health Concerns Section Related Observation LastModified by Organization Detai ls LastModified Time None Recorded Concern Status LastModified by Organization Details LastModified Time None Recorded Advance Directives Directive None Recorded Payers Insurance Date Sequence Insurance Name Policy Number Policy Arana Covered Member ID Arana Member ID Guarantor Name 03/05/2025 2 [facility] - DOS ON OR AFTER 21 (MEDICAID REPLACEMENT - HMO) Eri Liao [id number] Eri Liao 12/13/2024 1 [facility] (PP[facility] [id number] Adriana Liao [id number] Eri Liao Notes Date Note Type Note Provider Name and Address Organization Details Recorded Time 11/26/2024 text/html ROS as noted in the HPI cannot tolerate sumatriptan , nor relpax JULIETTE Stephen [address] [facility], [facility] [address], [place], [address], [facility] 12/01/2024 11:40:08 OBGyn Episode No OBEpisode recorded.
--- OUTSIDE RECORDS SUMMARY | 2025-06-21 00:48 | XMS_ITS | Clinical Summary ---
Author Organization [facility] Address [address] [place] [id number] Care Team Providers Care Pageant Director Name Role Phone Luna Henson PHARMACY STOCK CLERK Primary Care Provider [phone] Allergies Active Allergy Reactions Criticality Noted Date Comments Aspirin Swelling Low 08/09/2012 Codeine Itching,Swelling Low 08/09/2012 Ibuprofen Hives 12/12/2024 Latex Hives,Itching,Rash,Redness High 1 Medications Levonorgest-Eth Estradiol-Iron 0.1-20 MG-MCG(21) Tab Take by mouth. Activ e cyanocobalamin (B-12) 1000 MCG/ML injection INJECT 1 [...] total) by mouth daily. 11/10/19 25 Active cetirizine (ZYRTEC ALLERGY) 10 MG [...] Active Additional Information Patient not taking.Reported on 06/19/2025 propranolol LA (INDERAL LA) 60 MG 24 hr capsuleIndications :Migraine without aura and without status migrainosus, not intractable TAKE 1 CAPSULE(60 MG) BY MOUTH DAILY 30 capsule 2 03/18/20 Active Hospital, Clinic, or Other Facility Administered Medication Ordered Dose Route Frequency Start Date End Date Status cyanocobalamin (B-12) injection 1,000 mcgIndications:B12 deficiency 1000 mcg IM Once 05/07/2025 06/04/2025 Ended Active Problems Problem Noted Date Diagnosed Date Vitamin D deficiency 02/14/2025 Right groin pain 02/14/2025 Pelvic congestion syndrome 02/14/2025 Pernicious anemia 01/16/2025 B12 deficiency 01/16/2025 Allergic rhinitis, unspecifi ed seasonality, unspecified trigger 01/16/2025 Mixed hyperlipidemia 01/16/2025 Migraine without aura and wi thout status migrainosus, not intractable 01/16/2025 Encounters Date Type Department Care Team Description 06/19/2025 9:40 AM CDT [facility] [address] [place] [address] Luna Henson, PHARMACY STOCK CLERK Results 06/19/2025 Travel 06/13/2025 Results Follow-Up [facility] - [address] [place] [address] Luna Henson, PHARMACY STOCK CLERK LIPID PANEL, TSH W/REFLEX, VITAMIN B-12, Additional followed-up results: 3 06/12/2025 7:10 AM CDT [facility] [place] [address] Luna Henson NP 06/12/2025 - 06/12/2025 11:59 PM CDT Hospital Encounter [facility] [address] Luna Henson, PHARMACY STOCK CLERK Discharge Disposition: Home or Self Care (Routine Discharge) 06/12/2025 Travel 06/04/2025 10:40 AM CDT Flu/Imm Clinic [place] [address] [facility] [address] [place] [address] Luna Henson, PHARMACY STOCK CLERK Allied Health Visit (Pt here for B12 injection. /) 06/04/2025 Travel 05/21/2025 10:40 AM CDT Allied Health/Nurse Visit [place] [address] [address] [facility] [address] [place] [address] Luna Henson, PHARMACY STOCK CLERK Allied Health Visit (Pt here for B12) 05/21/2025 Travel 05/07/2025 10:50 AM CDT Flu/Imm Clinic [place] [address] [address] [facility] [address] [place] [address] Luna Henson, PHARMACY STOCK CLERK 05/07/2025 Travel 04/23/2025 3:20 PM CDT Allied Health/Nurse Visit [place] [address] [address] [facility] [address] [place] [address] Luna Henson, PHARMACY STOCK CLERK Allied Health Visit 04/23/2025 Travel 04/02/2025 10:20 AM CDT Allied Health/Nurse Visit [place] [address] [address] [facility] [address] [place] [address] Luna Henson, PHARMACY STOCK CLERK Allied Health Visit (b12) 04/02/2025 Travel 03/22/2025 Scan [facility] INFO SRVCS Scanned, Doc Med Group from Last 3 Months Family History Medical [...] Sign Reading Time Taken Comments Blood Pressure 97/55 06/19/2025 9:49 AM CDT Pulse 81 06/19/2025 9:49 AM CDT Temperature 36.4 C (97.6 F) 06/19/2025 9:49 AM CDT Respiratory Rate 16 06/19/2025 9:49 AM CDT Oxygen Saturation 100% 06/19/2025 9:49 AM CDT Inhaled Oxygen Concentration - - Weight 55.2 kg (121 lb 9.6 oz) 06/19/2025 9:49 A M CDT Height 152.4 cm (5') 06/19/2025 9:49 AM CDT Body Mass Index 23.75 06/19/2025 9:49 AM CDT Plan of Treatment Health Maintenance Due Date Last Done Comments Cervical Cancer Screening Pa p Smear (Age 30 to 64) Every 3 Years 1981 DTaP, Tdap and Td Vaccines ( 1 - Tdap) 2000 Hepatitis B Vaccines (1 of 3 - 19+ 3-dose series) 2000 HPV Vaccines (1 - 3-dose SCD M series) 2008 Mammogram Screening 2021 COVID-19 Vaccine (2023-2 5 season) 2025 Annual Physical 02/14/2026 02/14/2025 Cervical Cancer Screening Pa p with HPV Testing (Age 30 to 64) Every 5 Years 08/07/2029 08/07/2024 Cervical Cancer Screening with HPV 08/07/2029 PHQ-2 (Physician [place]) Completed 12/12/2024 Hepatitis C Completed 06/12/2025 Meningococcal B Vaccine Aged Out No l [...] Procedure Name Priority Date/Time Associated Diagnosis Comments HEPATITIS C ANTIBODY Routine 06/12/2025 8:16 AM CDT Need for hepatitis C screening test CBC W/DIFF AUTOMATED Routine 06/12/2025 8:16 AM CDT B12 deficiency COMPREHENSIVE METABOLIC PANEL Routine 06/12/2025 8:16 AM CDT B12 deficiency Mixed hyperlipidemia VITAMIN B-12 Routine 06/12/2025 8:16 AM CDT B12 deficiency Mixed hyperlipidemia TSH W/REFLEX Routine 06/12/2025 8:16 AM CDT B12 deficiency Mixed hyperlipidemia LIPID PANEL Routine 06/12/2025 8:16 AM CDT B12 deficiency Mixed hyperlipidemia OUTSIDE CYTOPATH CERV/VAG INTERPRET (PAP) 08/07/2024 from Last 3 Months or Most Recently Relevant to Health Maintenance Results * TSH W/REFLEX (06/12/2025 8:16 AM CDT) TSH 1.340 0.358 - 3.740 uIU/ML 06/12/2025 5:37 PM CDT -[facility] 06/12/2025 8:16 AM CDT us Luna Henson NP LABORATORY Final Resul t [facility] [address] [place] [address], * VITAMIN B-12 (06/12/2025 8:16 AM CDT) VITAMIN B12 S/P/B 938 193 - 986 PG/ML 06/12/2025 5:37 PM CDT [facility] 06/12/2025 8:16 AM CDT us Luna Henson PHARMACY STOCK CLERK LABORATORY Final Resul t [facility] [address] [place] [address], [place] [phone] * COMPREHENSIVE METABOLIC PANEL (06/12/2025 8:16 AM CDT) SODIUM S/P/B 141 136 - 145 MMOL/L 06/12/2025 5:37 PM CDT [facility] POTASSIUM S/P/B 4.2 3.5 - 5.1 MMOL/L 06/12/2025 5:37 PM CDT [facility] CHLORIDE S/P/B 104 98 - 107 MMOL/L 06/12/2025 5:37 PM CDT [facility] CO2 25.8 21 - 32 MMOL/L 06/12/2025 5:37 PM CDT [facility] GLUCOSE 92 70 - 99 MG/DL 06/12/2025 5:37 PM CDT [facility] BUN 10 7 - 18 MG/DL 06/12/2025 5:37 PM CDT [facility] CREATININE S/P/B 0.68 0.55 - 1.02 MG/DL 06/12/2025 5:37 PM CDT [facility] CALCIUM S/P/B 8.8 8.4 - 10.5 MG/DL 06/12/2025 5:37 PM CDT [facility] BILIRUBIN TOTAL S/P/B 0.6 0.2 - 1.0 MG/DL 06/12/2025 5:37 PM CDT [facility] ALKALINE PHOSPHATASE S/P/B 49 37 - 98 U/L 06/12/2025 5:37 PM CDT [facility] AST 27 15 - 37 U/L 06/12/2025 5:37 PM CDT [facility] ALT 30 14 - 59 U/L 06/12/2025 5:37 PM CDT [facility] TOTAL PROTEIN S/P/B 6.7 6.4 - 8.2 G/DL 06/12/2025 5:37 PM T [facility] ALBUMIN S/P/B 3.9 3.4 - 5.0 G/DL 06/12/2025 5:37 PM T [facility] ANION GAP 11.2 5 - 15 MMOL/L 06/12/2025 5:37 PM T [facility] Comment:REFERENCE RANGE NOT ESTABLISHED OSMOLALITY (CALC) 291 MOSM/KG 025 5:37 PM T [facility] Comment:REFERENCE RANGE NOT ESTABLISHED GFR ESTIMATE >90 >90 ML/MIN/1. 73 M2 06/12/2025 5:37 PM T [facility] GFR NOTES GFR REFERENCE S: 06/12/2025 5:37 PM T [facility] Comment: THE ESTIMATED GFR IS CALCULATED USING THE 2020 CKD-EPI EQUATION. THE FOLLOWING CATEGORIES FOR GRADING RENAL FUNCTION ARE RECOMMENDED BY THE INTERNATIONAL SOCIETY OF NEPHROLOGY (KDIGO 2012 CLINICAL PRACTICE GUIDELINE). G1,NORMAL OR HIGH: >89 ml/min/1.73 m2 G2,MILDLY DECREASED: 60-89 ml/min/1.73 m2 G3A,MILDLY TO MODERATELY DECREASED: 45-59 ml/min/1.73 m2 G3B,MODERATELY TO SEVERELY DECREASED: 30-44 ml/min/1.73 m2 G4,SEVERELY DECREASED: 15-29 ml/min/1.73 m2 G5,KIDNEY FAILURE: <15 ml/min/1.73 m2 06/12/2025 8:16 AM CDT us Luna Henson NP LABORATORY Final Resul t -[facility], [address] [place] [address], [place] [phone] * LIPID PANEL (06/12/2025 8:16 AM CDT) CHOLESTEROL 139 <200 MG/DL 06/12/2025 5:37 PM CDT [facility] TRIGLYCERIDES 42 <150 MG/DL 06/12/2025 5:37 PM CDT [facility] HDL 56 >40 MG/DL 06/12/2025 5:37 PM CDT [facility] LDL-C 75 <100 MG/DL 06/12/2025 5:37 PM CDT [facility] VLDL CALCULATION 8 5 - 28 MG/DL 06/12/2025 5:37 PM CDT [facility] CHOL/HDL RATIO 2.5 0.0 - 4.0 06/12/2025 5:37 PM CDT [facility] LDL/HDL 1.3 0.41 - 2.13 06/12/2025 5:37 PM CDT [facility] NON HDL CHOLESTEROL 83 <140 MG/DL 06/12/2025 5:37 PM CDT [facility] 06/12/2025 8:16 AM CDT Luna Henson NP LABORATORY Final Resul t [facility], [address] [place] [address], [place] [phone] * HEPATITIS C ANTIBODY (06/12/2025 8:16 AM CDT) HEPATITIS C AB NON-REACTI VE NON-REACT MAKAYLA 06/12/2025 10:04 PM CDT [facility] Comment: ANTIBODIES TO HCV NOT DETECTED. DOES NOT EXCLUDE THE POSSIBILITY OF EXPOSURE TO HCV. 06/12/2025 8:16 AM CDT Luna Henson PHARMACY STOCK CLERK LABORATORY Final Resul t [facility] [address] [place] [address], [phone] * (ABNORMAL) CBC W/DIFF AUTOMATED (06/12/2025 8:16 AM CDT) WBC 4.79 4.00 - 10.80 x10'3/uL 06/12/2025 4:27 PM CDT -[facility] RBC 4.44 4.10 - 5.40 x10'6/uL 06/12/2025 4:27 PM CDT [facility] HGB 14.4 12.0 - 16.0 G/DL 06/12/2025 4:27 PM CDT [facility] HCT 43.6 36.0 - 47.0 % 06/12/2025 4:27 PM CDT [facility] MCV 98.2 78.0 - 100.0 FL 06/12/2025 4:27 PM CDT [facility] MCH 32.4(H) 27.0 - 31.0 PG 06/12/2025 4:27 PM CDT [facility] MCHC 33.0 33.0 - 36.0 G/DL 06/12/2025 4:27 PM CDT [facility] RDW 11.8 11.5 - 14.5 % 06/12/2025 4:27 PM CDT [facility] PLT 204 150 - 350 x10'3/uL 06/12/2025 4:27 PM CDT [facility] MPV 11.9(H) 7.4 - 10.4 FL 06/12/2025 4:27 PM CDT [facility] DIFFERENTIAL TYPE AUTOMATED DIFFERENTIAL 06/12/2025 4:27 PM CDT [facility] NEUTROPHILS % 37.4 % 06/12/2025 4:27 PM CDT [facility] LYMPHOCYTES % 52.4 % 06/12/2025 4:27 PM CDT [facility] MONOCYTES % 7.3 % 06/12/2025 4:27 PM CDT [facility] EOSINOPHILS % 2.7 % 06/12/2025 4:27 PM CDT [facility] BASOPHILS % 0.2 % 06/12/2025 4:27 PM CDT [facility] IMMATURE GRANS % 0.0 % 06/12/2025 4:27 PM CDT [facility] ABS. NEUTROPHILS 1.79 1.60 - 8.30 x10'3/uL 06/12/2025 4:27 PM CDT -[facility] ABS. LYMPHOCYTES 2.51 0.80 - 4.70 x10'3/uL 06/12/2025 4:27 PM CDT [facility] ABS. MONOCYTES 0.35 0.00 - 1.50 x10'3/uL 06/12/2025 4:27 PM CDT [facility] ABS. EOSINOPHILS 0.13 0.00 - 0.40 x10'3/uL 06/12/2025 4:27 PM CDT [facility] ABS. BASOPHILS 0.01 0.00 - 0.20 x10'3/uL 06/12/2025 4:27 PM CDT [facility] ABS. IMMATURE GRANULOCYTES 0.00 0.00 - 0.03 x10'3/uL 06/12/2025 4:27 PM CDT [facility] 06/12/2025 8:16 AM CDT Luna Henson NP LABORATORY Final Resul t [facility] [address] [facility] [place] [address], * PAP SMEAR WITH HPV (08/07/2024) 08/07/2024 us Doc [facility] Scanned SCANNING Final Resu lt from Last 3 Months or Most Recently Relevant to Health Maintenance Insurance [facility] Care Teams Pageant Director Relationship Specialty Start Date End Date Luna Henson NP [address] [place] [address] PCP - General NURSE PRACTITIONER 12/03/24
--- OUTSIDE RECORDS SUMMARY | 2025-06-21 00:48 | XMS_ITS | Clinical Summary ---
Author Organization [facility] Address [address] [place] [address] Care Team Providers Care Lawnmower Repair Mechanic Name Role Phone Rc Grier MD Primary [...] 154.9 cm (5' 1) 12/02/2021 10:01 AM PATIENT ACCOUNT SPECIALIST Body Mass Index 22.56 12/02/2021 10:01 AM PATIENT ACCOUNT SPECIALIST Plan of Treatment Upcoming Encounters Date Type Department Care Team (Late st Contact Info) Description 09/06/2025 11:00 AM PATIENT ACCOUNT SPECIALIST Office Visit [facility] Oncology and Hematology - [place] [address] [facility] [address] [place] [address] Bhanu Magdaleno MD [address] [facility] [address] [place] [address] Health Maintenance Due Date Last Done Comments DTAP/TDAP/TD VACCINES (1 - Tdap) 2000 HEPATITIS B VACCINES (1 of 3 - 19+ 3-dose series) 02/2000 HPV/Cotest (21-29) 2002 HPV VACCINES (1 - 3-dose SCDM series) 2008 CERVICAL CANCER SCREENING 2011 HPV/Cotest (30-65) 2011 PAP SMEAR 2011 BREAST CANCER SCREENING 2021 INFLUENZA VACCINE (#1) 2025 Insurance [facility] BLUE PREFERRED Care Teams Lawnmower Repair Mechanic Relationship Specialty Start Date End Date Rc Grier MD PCP - General Family Practice 02/16/23
--- OUTSIDE RECORDS SUMMARY | 2025-06-21 00:48 | XMS_ITS | Encounter Summary ---
Author Organization [facility] Address [address] [place] [address] Care Team Providers Care Miner Pick Name Role Phone Luna Henson FOOD ASSEMBLER Primary Care Provider [phone] Encounter Details Date Type Department Care Team (Late st Contact Info) Description 02/14/2025 Adiosot Message Enc [facility] - [place] [address] [place], [place] [id number] Luna Henson NP [address] [place], [place] [id number] Mri Social History Tobacco Use Types Packs/Day [...] on filedocumented in this encounter Care Teams Miner Pick Relationship Specialty Start Date End Date Luna Henson NP [address] [place], [place] [id number] PCP - General NURSE PRACTITIONER 12/03/24 documented as of this encounter
--- NOTE | 2025-06-21 06:59 | WPDHPUPDATE1 ---
History and Physical Update Update Date/Time: 06/21/25 06:59 History and Physical has been reviewed, including an updated exam of the patient. There are NO changes in the patient's condition. Risks, benefits, and alternatives have been discussed and questions answered. Patient agrees to proceed with procedure.
--- NOTE | 2025-06-21 07:38 | WPDANESEPPF ---
Anes - Initial Pre Proc Eval Procedure: Operation Date: 06/21/25 09:00 Proposed Procedures p Robotic Assisted Total Vaginal Hysterectomy with Bilateral Salpingectomy - Cooper Lawrence MD Date/Time: 06/21/25 07:38 Surgeon: Cooper Lawrence MD Pre Op Diagnosis: pelvic congestion, enlarg uterus, pelvic pain Patient Data Age: 44 Gender: F Height: 1.52 m Weight: 57.2 kg Allergies Allergy/AdvReac Type Severity Reaction Status Date / Time aspirin Allergy Intermediate SWELLING Verified 06/11/25 14:20 codeine Allergy Intermediate SWELLING Verified 06/11/25 14:20 ferrous gluconate Allergy Intermediate Swelling Verified 06/11/25 14:20 latex Allergy Intermediate Rash; Verified 06/11/25 14:20 swelling NSAIDS (Non-Steroidal Allergy Intermediate Swelling Verified 06/11/25 14:20 Anti-Inflamma Home Medications ?Medication ?Instructions ?Recorded ?Confirmed ?Type vitamin Q04-svikmxg B1 1,000 1 ml IM DIRECTED 11/09/21 06/11/25 History mcg-100 mg/mL injection solution levonorgestrel 0.1 mg-ethinyl 1 tablet PO DAILY 12/28/21 06/11/25 History estradiol 0.02 mg (21)/iron (7) tablet (Balcoltra) atorvastatin 40 mg tablet 40 mg PO DAILY 02/17/24 06/11/25 History rimegepant 75 mg disintegrating 75 mg PO ONCE PRN migraine headache 01/17/25 06/11/25 History tablet (Nurtec ODT) ergocalciferol (vitamin D2) 1,250 50,000 unit PO WEEKLY 03/01/25 06/11/25 History mcg (50,000 unit) capsule propranolol 60 mg capsule,24 60 mg PO Q24H 03/01/25 06/11/25 History hr,extended release Patient hx anesthesia problems: post op nausea/vomiting Family hx anesthesia problems: none Results Review: All pre-operative results and documents have been reviewed as part of the pre-operative evaluation. [facility] Past Medical History Medical History Allergies Anemia Thyroid disorder Heart problem Hypertension High cholesterol Surgical History Surgical History Hx of laparoscopy 03/12/[address] Nina History of inguinal hernia repair lap RIH repair with mesh, da Jeffery assisted 01/05/22 Hx of tonsillectomy Family History Family History Father Heart attack Status post double vessel coronary artery bypass Cerebrovascular accident Hypertension Heart problem Mother High cholesterol Hypothyroidism Thyroid disorder Social History Social History Smoking status: Never smoker Alcohol intake: never Substance use: never Substance use type: does not use Do You Feel Safe in your Home?: Yes Lack of Transportation: No Lack of Food: Never True Current Housing: I Have Housing Concerned About Future Housing: No Difficulty Paying Gas/Electric Bills: No Difficulty Paying for Meds: No Currently Unemployed: No Education: Associate Degree Difficulty w/ Childcare or Family Care: No Living arrangements: with family Additional living arrangements comments: [facility] [phone] Occupation/Education: occupation Additional occupation/education comments: [employer] Gender identity (if verbalized by the patient): Female Spiritual care concerns: No Anes - Eval Final PreProcedure Day of Procedure 06/21/25 07:38 Patient weight: normal Heart: regular rate and rhythm Lungs: clear to auscultation Airway: Mallampati scale class II Neurological: alert and oriented Last oral intake: >/= 8 hours ASA classification: II Emergent: no Anesthetic plan: proceed Anesthesia type and monitoring: general ETT and standard monitoring Results Review: All pre-operative results and documents have been reviewed as part of the pre-operative evaluation. Informed Consent: The patient's anesthetic plan and its attendant risks and benefits were discussed with the patient/family/POA. Questions were solicited and answers provided to the satisfaction of the patient/family/POA.
[2025-06-21] MEDS: ACETAMINOPHEN 500 MG TABLET 1000 MG PO ×3 (07:50→19:40)
[2025-06-21] MEDS: LACTATED RINGERS 1,000 ML 30 ML IV CONT ×2 (08:10→09:53)
[2025-06-21 08:31] LABS: BEDSIDEPREGUCG Negative (Negative)
[2025-06-21] MEDS: ceFAZolin 2 GM in SODIUM CHLORIDE 0.9% IV 50 ML 100 ML IVPB (08:37)
[2025-06-21] MEDS: SCOPOLAMINE 1 MG PATCH 1 PATCH TRANSDERM (08:52)
--- NOTE | 2025-06-21 09:35 | S_PTH ---
PATIENT: Eri Liao LOC: [facility] U#:[id number] AGE/SX: 44/F ROOM: RE06/21/[address]: Cooper Lawrence MD : 1980 BED: DIS: 06/22/2025 SPEC #: [id number] RECD: 06/21/25 10:20 STATUS: CICI REMagaly #: [id number] DANNY: 06/21/25 09:[address]: Cooper Bryant DEPT: [facility] Surgical RECD BY: Bryanna Hale ENTERED: 06/21/25 10:20 SP TYPE: Surgical OTHR DR: Lnua Henson, ANNUAL GIVING MANAGER Tissues: A - Uterus Procedures: Hematoxylin and Eosin Stain Gross and Microscopic Level 5
--- NOTE | 2025-06-21 09:44 | PM.DS ---
DS: Admitting Diagnosis Discharge Date 06/22/2025 Admitting Diagnosis Pelvic/enlarged/ DS: Discharge Diagnosis Discharge Diagnosis (1) Enlarged uterus: Code(s): N85.2 - Hypertrophy of uterus Status: Acute (2) Pelvic pain: Code(s): R10.2 - Pelvic and perineal pain Status: Acute (3) Pelvic congestion: Code(s): N94.89 - Other specified conditions associated with female genital organs and menstrual cycle Status: Acute DS: Summary Hospital Course Reason for hospitalization: Patient was for total salpingectomy on 06/21/2025 Hospital Course: Patient's hospital course. She remained afebrile. She was up, ambulating, voiding without difficulty eating regular diet, and generally without complaints. Time Spent with Patient Time attestation: Total time spent providing and/or coordinating discharge services: Exam Const: General: cooperative, healthy appearing, comfortable, well groomed and average body habitus Orientation/consciousness: oriented to person, oriented to place and oriented to time HENMT: Head: normal to inspection Resp: Effort & Inspection: normal respiratory effort Cardio: Rate: regular rate Rhythm: regular rhythm Heart sounds: S1 normal heart sound present and S2 normal heart sound present GI: Inspection: normal to inspection : External Female Exam: normal external appearance Speculum Exam - Vagina: normal appearance of the vagina Speculum Exam - Cervix: normal appearance of the cervix Bimanual exam- vagina & uterus: enlarged and Uterine tenderness Bimanual Exam- Adnexa, other: normal adnexae DS: Data Data Completed and Pending Pending studies at discharge: Pending at discharge 06/21/25 09:35 Surgical [PTH] Routine Labs on day of discharge: Labs from last 24 hours 06/21/25 08:28 POC Urine HCG, Qual Negative Discharge Plan Discharge Patient Disposition: Home Discharge Instructions: Remove the Scopolamine patch that was placed behind your ear in 72 hours or less. Wash your hands after touching. Patient Language: Japanese Stand Alone Forms: General Discharge Instructions Follow-up/Referrals: Cooper Bryant MD [Physician, DYNAMO REPAIRER] Discharge Medications: New tramadol 50 mg tablet 50 mg PO Q4H PRN (Reason: pain) Qty: 20 0RF Continued atorvastatin 40 mg Tablet 40 mg PO DAILY vitamin T51-vuwzjis B1 1,000-100 mg/mL solution 1 ml IM DIRECTED Rx Instructions: BI-WEEKLY Nurtec ODT 75 mg tablet,disintegrating 75 mg PO ONCE PRN (Reason: migraine headache) Rx Instructions: as a single dose ergocalciferol (vitamin D2) 1,250 mcg (50,000 unit) capsule 50,000 unit PO WEEKLY Patient Comments: Bi weekly propranolol 60 mg capsule,extended release 24 hr 60 mg PO Q24H Patient Comments: Preventative for migraines. Discontinued levonorgest-eth.estradiol-iron [Balcoltra] 0.1 mg-0.02 mg (21)/36.5 mg(7) tablet 1 tablet PO DAILY
--- NOTE | 2025-06-21 09:48 | P.OP_ITS ---
Procedure Note - Detailed Date of Procedure 06/21/25 Pre-op Diagnosis pelvic congestion, enlarg uterus, pelvic pain Post-op Diagnosis Same Procedure Performed Robotic total vaginal hysterectomy and bilateral salpingectomy Surgeon Cooper Lawrence MD Anesthesia General Indications 44-year-old female with pelvic congestion and a markedly enlarged uterus and pelvic pain Findings Fibroid uterus with large varicosities bilaterally along the uterus. Normal-appearing ovaries bilaterally. The right inguinal mesh was placed perfectly. Description of Procedure Patient was prepped and draped in the normal sterile fashion placed in dorsal lithotomy position. Under excellent general trach anesthesia weighted speculum placed posterior fornix of the vagina. The anterior lip of the cervix was grasped with a single-tooth tenaculum. The uterus sounded to 9cm. Serial dilatation with fragmented dilators performed followed by passage of the 8. KARL and the 3. Cold cup. Next the 16 German catheter was placed in the bladder drained clear urine. The weighted speculum and the single-tooth tenaculum were removed. The gloves were changed. Supraumbilical incision made. The Veress needle passed in the abdomen. Abdomen filled with CO2 gas to 15mm emerge the 8mm trocar advanced in the abdomen. Downside visualized no injury seen. Patient placed in Trendelenburg to20? right lateral and left lateral quadrant incisions made in the 8mm trocars advanced under direct visualization assuring injury. A right upper quadrant incision made the 8mm trocar advanced under direct visualization assuring no injury. The robot was docked. Attention was turned to the student success counselor. The uterus was noted be large with fibroids and markedly enlarged vascular structures either side of the uterus. Ovaries appeared within normal limits cyst in the tube. The left round ligament was grasped, burned, cut. Bladder flap was formed by sharply dissecting the peritoneum retracting this caudally away from the cervix uterus to the opposite round ligament which was clamped, burned, cut. Next the left fallopian tube was sharply dissected away from the ovarian complex and left attached at its uterine origin. In similar fashion the right fallopian tube was sharply dissected away from the complex left attached to its uterine origin. Next the utero-ovarian ligament on the left was skeletonized to conserve the left ovary this was clamped, burned, cut and brought to the level of previously cut round ligament. In similar fashion on the right the ovary was conserved. The utero-ovarian ligament was clamped, burned, cut brought to the level of the previously cut round right. Next the cardinal broad ligaments on the left were serially skeletonized clamping burning cutting until the uterine vessels could be seen on the left these were numerous and markedly enlarged. Individually each was clamped, burned, cut. Similar fashion on the right the cardinal broad ligaments were serially skeletonized clamping burning cutting into the vessels could be seen on the right. These as well were numerous markedly enlarged tortuous. These were individually clamped, burned. Blanching the uterus was noted colpotomy incision cervix uterus and tubes through the vagina. The vagina then closed with continuous running V lock from lateral edge to lateral edge back to the midline irrigation the subcutaneous layer and the skin closed with 4-0 Monocryl and glue after undocking the robot removing the gas. QBL was 25cc. All sponge, needle, instrument counts were correct. There were immediate complications noted Estimated Blood Loss 25 Drains No Packing No Pathology Yes Complications No immediate complications Condition Stable Disposition PACU
[2025-06-21] MEDS: fentaNYL CITRATE INJ (*CRX) 100 MCG/2 ML VIAL 25 MCG IV PUSH ×3 (10:06→10:20)
[2025-06-21] MEDS: ONDANSETRON INJ 4 MG/2 ML VIAL IV PUSH ×2 (10:19→19:40)
[2025-06-21] MEDS: diazePAM INJ (*CRX) 10 MG/2 ML SYRINGE 2.5 MG IV PUSH (11:27)
--- NOTE | 2025-06-21 11:55 | ADMGEN ---
This patient, Eri Liao, was admitted to OB 2nd Floor Room 289-00. Patient/family oriented to hospital policies and general routines including ID bracelet, bed and alarms, visiting hours, pain management, procedures, bathroom and other care routines, personal items, smoking policy, room service/diet, and visiting hours. Information on how to activate the Rapid Response Team has been discussed. Patient/Family are encouraged to report perceived risks to care and to ask questions if they do not understand what they are told or what they should do.
[2025-06-21] MEDS: DEXTROSE 5%/LACTATED RINGERS 1,000 ML 125 ML IV CONT ×2 (12:21→19:50)
[2025-06-21] MEDS: SIMETHICONE 80 MG TAB.CHEW PO ×2 (14:06→17:06)
[2025-06-21] MEDS: traMADol HCL (*CRX) 50 MG TABLET PO ×2 (14:06→19:40)
[2025-06-21] MEDS: DOCUSATE SODIUM 100 MG CAPSULE PO (17:06)
[2025-06-22 00:54] VITALS: BP 99/63; PULSE 60; RESP 16; TEMP 36.6; O2SAT 98
[2025-06-22] MEDS: traMADol HCL (*CRX) 50 MG TABLET PO ×3 (01:00→10:47)
[2025-06-22 04:00] VITALS: BP 100/58; PULSE 61; RESP 16; TEMP 36.7; O2SAT 100
[2025-06-22 05:30] LABS: Hematocrit 39.2 % (37.0-47.0); Hemoglobin 12.8 g/dL (12.0-15.0); Immature Granulocyte Percent A 0.4 % (0-0.5); Lymphocytes Absolute Auto 2.03 K/mm3 (0.9-3.2); Mean Corpuscular HGB Conc 32.7 g/dl (32-36); Mean Corpuscular Hemoglobin 31.9 pg (26-34); Mean Corpuscular Volume 97.8 fl (80-100); Nucleated Red Blood Cells Absolute Auto 0.000 K/mm3 (0.0-0.012); Nucleated Red Blood Cells Perc 0.0 % (0.0-0.2); Platelet Count Result 176 k/mm3 (150-375); Red Blood Count 4.01 M/mm3 (4.2-5.4); White Blood Count 10.1 K/mm3 (4.5-10.0)
[2025-06-22 08:08] VITALS: BP 105/49; PULSE 65; RESP 14; TEMP 36.6; O2SAT 100
[2025-06-22] MEDS: ENOXAPARIN 40 MG/0.4 ML SYRINGE SUB-Q (10:46)
[2025-06-22] MEDS: SIMETHICONE 80 MG TAB.CHEW PO (10:47)
[2025-06-22] MEDS: DOCUSATE SODIUM 100 MG CAPSULE PO (10:47)
--- NOTE | 2025-06-22 12:23 | P.PNOB_ITS ---
SUPERVISOR ORCHARD - A/P Postoperative Procedures: Procedures Operation Date: 06/21/25 09:00 Actual Procedure Side Surgeon p Robotic Assisted Total Vaginal Hysterectomy with Bilateral Salpingectomy Bilateral Cooper Lawrence MD Postoperative day: 1 Postoperative status: doing well Postoperative plan: routine post-op care and discharge Time Spent With Patient Time: Total time spent is greater than 50% in coordination of care (as documented) at patient's floor/unit and/or counseling patient: Time with patient: less than 15 minutes SUPERVISOR ORCHARD- PN:Subj Post-Op Subjective Date/time seen: 06/22/25 12:23 Subjective: patient reports feeling better, pain is well controlled and patient reports nausea (yesterday but not today) Exam 2 Narrative: incisions c/d/i abdomen soft, nt, nd SUPERVISOR ORCHARD - PN: Obj Data Vital Signs Vital Signs: Vital Signs - 24 hr 06/21/25 16:10 06/21/25 16:10 06/21/25 19:40 Temperature 98.1 F 98.1 F Pulse Rate 61 65 Respiratory Rate 14 18 Blood Pressure 100/60 99/59 L Pulse Oximetry 100 99 Oxygen Delivery Room Air 06/21/25 19:40 06/22/25 00:54 06/22/25 04:00 Temperature 97.9 F 98.1 F Pulse Rate 60 61 Respiratory Rate 16 16 Blood Pressure 99/63 L 100/58 L Pulse Oximetry 98 100 Oxygen Delivery Room Air 06/22/25 04:00 06/22/25 08:08 Temperature 97.8 F Pulse Rate 65 Respiratory Rate 14 Blood Pressure 105/49 L Pulse Oximetry 100 Oxygen Delivery Room Air Intake/Output Intake/Output: Intake & Output 06/19/25 06/20/25 06/21/25 06/22/25 23:59 23:59 23:59 23:59 Intake Total 2435.4 1600 Output Total 1480 1500 Balance 955.4 100 Meds/Results Medications: Active Medications Generic Name Dose Route Start Last Admin Trade Name Freq PRN Reason Stop Dose Admin Acetaminophen 1,000 mg 06/21/25 12:00 06/22/25 01:02 Acetaminophen 500 Mg Tablet PO Not Given Q6HR SHAYNA Docusate Sodium 100 mg 06/21/25 17:00 06/22/25 10:47 Docusate Sodium 100 Mg Capsule PO 100 mg BID SHAYNA Administration Enoxaparin Sodium 40 mg 06/22/25 09:00 06/22/25 10:46 Enoxaparin 40 Mg/0.4 Ml Syringe SUB-Q 40 mg DAILY SHAYNA Administration Dextrose/Lactated Ringer's 1,000 mls @ 125 mls/hr 06/21/25 11:51 06/22/25 03:50 Dextrose 5%/Lactated Ringers IV CONT Infused .Q8H SHAYNA Infusion Morphine Sulfate 2 mg 06/21/25 13:36 Morphine Sulfate (*Crx) 4 Mg/Ml Inj IV PUSH Q4H PRN Pain Rated 7-10 Naloxone HCl 0.1 mg 06/21/25 11:51 Naloxone Hcl 0.4 Mg/Ml Vial IV PUSH Q2M PRN Respiratory rate less than 10 Ondansetron HCl 4 mg 06/21/25 11:51 06/21/25 19:40 Ondansetron Inj 4 Mg/2 Ml Vial IV PUSH 4 mg Q6H PRN Administration Nausea And Vomiting Simethicone 80 mg 06/21/25 12:00 06/22/25 10:47 Simethicone 80 Mg Tab.Chew PO 80 mg TIDWM SHAYNA Administration Tramadol HCl 50 mg 06/21/25 13:35 06/22/25 10:47 Tramadol Hcl (*Crx) 50 Mg Tablet PO 50 mg Q4H PRN Administration Pain Rated 6 or Greater Labs 06/22/25 03:52 Labs: Laboratory Results - last 24 hr 06/22/25 03:52 WBC 10.1 H RBC 4.01 L Hgb 12.8 Hct 39.2 MCV 97.8 MCH 31.9 MCHC 32.7 RDW 11.9 Plt Count 176 MPV 11.6 H Immature Gran % (Auto) 0.4 Neut % (Auto) 71.2 Lymph % (Auto) 20.1 Hooker % (Auto) 8.1 Eos % (Auto) 0.1 Baso % (Auto) 0.1 L Lymph # (Auto) 2.03 Hooker # (Auto) 0.8 H Eos # (Auto) 0.0 Baso # (Auto) 0.0 Abs Immat Gran (auto) 0.04 H Absolute Neuts (auto) 7.2 H Absolute Nucleated RBC 0.000 Nucleated RBC % 0.0
[2025-06-22 13:00] VITALS: TEMP 37.3
== END 2025-06-22 14:57 | disposition home or self-care (01) ==
LOC: ANHSURGERY 07:05 → ANHOB2 11:56
PROVIDERS: PCP Nurse Practitioner; Visit Provider Obstetrics & Gynecology
PROC: (CPT 58552; principal; 2025-06-21 09:00)
DX: N72 Inflammatory disease of cervix uteri (principal); D25.1 Intramural leiomyoma of uterus; D64.9 Anemia, unspecified; E78.00 Pure hypercholesterolemia, unspecified; E07.9 Disorder of thyroid, unspecified; I11.9 Hypertensive heart disease without heart failure; Z98.890 Other specified postprocedural states; Z82.49 Family history of ischemic heart disease and other diseases of the circulatory system
CPT/HCPCS: 58552; S2900; 36415; 85025; 88307; 99199; J0690; A9270; J1100; J1171; J1200; J1650; J2003; J2250; J2405; J2704; J3010; J3360; J7120; J7121

== ENCOUNTER 2025-08-30 09:27 | Outpatient (CLI) | payer BC, SELFPAY ==
[2025-08-30 10:05] LABS: Hematocrit 43.6 % (37.0-47.0); Hemoglobin 14.7 g/dL (12.0-15.0); Mean Corpuscular HGB Conc 33.7 g/dl (32-36); Mean Corpuscular Hemoglobin 32.1 pg (26-34); Mean Corpuscular Volume 95.2 fl (80-100); Platelet Count Result 208 k/mm3 (150-375); Red Blood Count 4.58 M/mm3 (4.2-5.4); White Blood Count 4.5 K/mm3 (4.5-10.0)
[2025-08-30 11:18] LABS: Anion Gap 7 mmol/L (4-12); Blood Urea Nitrogen 14 mg/dL (7-17); Calcium 9.4 mg/dL (8.4-10.2); Carbon Dioxide 25 mmol/L (22-30); Chloride 105 mmol/L (98-107); Estimated Glomerular Filt Rate > 60; Glucose 87 mg/dL (65-110); Potassium 4.1 mmol/L (3.4-5.0); Sodium 137 mmol/L (137-145)
[2025-08-30 11:29] LABS: Iron 103 ug/dL (37-170)
[2025-08-30 11:44] LABS: Percent Iron Saturation 41 % (20-50)
[2025-08-30 12:11] LABS: Ferritin 108.00 ng/mL (6.24-137)
[2025-08-30 12:29] LABS: Vitamin B12 772.0 pg/mL (239-931)
== END 2025-08-30 09:28 | disposition home or self-care (01) ==
LOC: ANHLAB 09:28
PROVIDERS: PCP Nurse Practitioner; Visit Provider Internal Medicine Hematology & Oncology
DX: D50.0 Iron deficiency anemia secondary to blood loss (chronic) (principal); E53.8 Deficiency of other specified B group vitamins
CPT/HCPCS: 36415; 80048; 82607; 82728; 82746; 83540; 83550; 85027